=== PATIENT | male | born 1935 | race Caucasian/White ===

== ENCOUNTER 2024-01-01 23:21 | Inpatient (IN) | payer OTHER, SELFPAY ==
[2024-01-01 18:53] VITALS: BP 138/68
--- NOTE | 2024-01-01 19:41 | ED.GENMED ---
History of Present Illness
General
Chief Complaint: Weakness
Time Seen by Provider: 01/01/24 19:24
History of Present Illness
History of Present Illness:
88-year-old male history of previous CABG presenting with generalized fatigue for the past few months. Patient states that he followed up with his primary care doctor who ordered labs that were abnormal, so he was sent to the emergency department
for further evaluation. Patient states he does not know what the abnormal blood work showed. Patient reports episodes of 'extreme chills' that last for hours at a time for the past 2 months, most recently 1 week ago. Patient otherwise denies
fever, chest pain, shortness of breath, cough, vomiting, abdominal pain, or urinary symptoms. Patient denies black or bloody stools. Patient is not on a blood thinner.
Phy Exam
Physical Exam
Physical Exam:
General: Alert, no acute distress
Head: NCAT
Eyes: clear conjunctiva
Neck: supple
Cardiac: regular rate and rhythm, no murmur
Lungs: clear to auscultation bilaterally. No wheezes, rales, or rhonchi. Speaking full unlabored sentences. No respiratory distress.
Abdomen: soft, nondistended nontender. No rebound or guarding.
MSK: no lower extremity edema bilaterally. No deformity
Skin: warm, dry
Neuro: Alert and oriented x3. no focal deficits
Course
Orders/Labs/Results
Orders:
Orders
01/01/24 19:07
Electrocardiogram (*1) Urgent
Reason for Study: Fatigue / Weakness
01/01/24 19:08
EKG- Treatment ONCE
01/01/24 20:21
CMP [Comprehensive Metabolic Panel] Urgent
Complete Blood Count/With Diff Urgent
TSH Reflex To Free T4 Urgent
Troponin I Urgent
01/01/24 21:01
Urinalysis Reflex To Culture Urgent
Date Specimen was Collected: 01/01/24
Time Specimen was Collected: 19:07
Urine Microscopic Reflex Cult Urgent
Urine Culture Urgent
RAHUL Source: U
Specimen Description:
Date Specimen was Collected: 01/01/24
Time Specimen was Collected: 19:07
01/01/24 21:14
US Abdomen Complete/Upper Urgent
Comment:
Reason For Exam: elevated lfts
01/01/24 21:16
Add On- LAB Urgent
Tests Added?: tsh w/ reflex t4
01/01/24 21:25
EKG- Treatment ONCE
01/01/24 22:26
Lipase Urgent
CefTRIAXone [Rocephin] 1,000 mg IV NOW STA
01/01/24 23:17
Troponin I Urgent
01/01/24 23:20
Electrocardiogram (*1) Urgent
Reason for Study: CAD
01/01/24 23:21
Admit/Transfer Patient As Directed
Co-Sign Provider:
Level of Care: Inpatient admission
Assign to:: Telemetry
Physician / Group: hospitalist
Diagnosis: choledocholithiasis
Reason for Telemetry: Chest Pain syndromes
Date to Stop Telemetry: 01/03/24
Time to Stop Telemetry: 11:00
Reason for Hospitalization: choledocholithiasis
Expected length of stay greater than two midnights?: Yes
ELOS- Estimated Length of Stay in days: 2
I certify the patient meets the requirements for IP care: Yes
PRN Pain Medication Management As Directed
May give lesser potent ordered pain med per pt: Yes
preference::
Protocol:: Medication orders for pain may be administered in a
manner that supports deferring to patient preference
when the pt is:
- Requesting an ordered lesser potent pain medication.
Least to most potent pain medications are defined
as: acetaminophen < NSAID < tramadol < opioids
(morphine, oxycodone, hydromorphone).
- Requesting a lesser dose of the same medication IF
ORDERED.
- Requesting a less intrusive route of administration
if both routes are prescribed by the provider (PO <
IV).
01/01/24 23:22
Code Status As Directed
Resuscitation Status: Full Code
01/03/24 11:00
DC Protocol for Telemetry ONCE
Abnormal Lab Results
01/01/24 01/01/24
20:21 21:01
RBC 4.01 L 10^6/uL
(4.70-6.10)
Hgb 12.8 L g/dL
(13.0-18.0)
MCV 97.3 H fL
(80.0-94.0)
MCH 31.9 H pg
(27.0-31.0)
MCHC 32.8 L g/dL
(33.0-37.0)
RDW 15.9 H %
(11.5-14.5)
MPV 12.2 H fL
(7.4-10.4)
Abs Immat Gran (auto) 0.1 H 10^3/uL
(0-0.05)
Absolute Lymphs (auto) 1.1 L 10^3/uL
(1.2-3.4)
Absolute Monos (auto) 1.2 H 10^3/uL
(0.1-0.6)
Immature Gran % 1.5 H %
(0-0.5)
Lymphocytes % 12.6 L %
(20.5-51.1)
Monocytes % 13.8 H %
(1.7-9.3)
Glucose 111 H mg/dl
(70-99)
ALT 83 H U/L
(0-50)
Alkaline Phosphatase 364 H U/L
(38-126)
Troponin I 0.076 H* ng/ml
Urine Ketones 1+ A
(Negative)
Leukocyte Esterase Rfl Trace A
(Negative)
Urine Bacteria (Reflex) Many A
(Negative)
01/01/24 20:21
01/01/24 20:21
Vital Signs
Initial and Last Documented VS:
Initial Vital Signs
Temp Pulse Resp BP Pulse Ox
97.6 F 80 16 138/68 98
01/01/24 18:53 01/01/24 18:53 01/01/24 18:53 01/01/24 18:53 01/01/24 18:53
Last Documented Vital Signs
Temp Pulse Resp BP Pulse Ox
97.6 F 72 18 131/67 99
01/01/24 18:53 01/01/24 21:15 01/01/24 21:15 01/01/24 21:15 01/01/24 21:15
MDM/Problems Addressed
Differential Diagnosis Includes:
Anemia, electrolyte abnormality, STEVEN, NSTEMI, UTI
MDM/Problems Addressed:
Results reviewed. Patient slightly anemic with hemoglobin 12.8, unknown baseline. Electrolytes within normal limits. Elevated ALT 83, alk phos 364. Ordered abdominal ultrasound. Troponin 0.076. Discussed results with patient at bedside. Pt
states he has seen Dr. Reardon, cardiology, in the past and is told he 'needs a new aortic valve'. Pt continues to deny any chest pain, shortness of breath, or abdominal pain. Abdomen soft nontender.
Discussed with cardiology who agrees to repeat troponin, can be discharged with outpatient follow up if troponin flat given no chest pain, no shortness of breath, nonischemic EKG. Ordered repeat troponin
UA concerning for possible UTI. Ordered ceftriaxone
US abdomen shows The gallbladder is distended with biliary sludge. There are no additional findings suggestive of acute cholecystitis. There is intrahepatic and extrahepatic biliary ductal dilation with the common bile duct measuring 1.3 cm. There
is a probable stone within the common bile duct. Consider MRCP or ERCP for further evaluation. Mild hepatic steatosis. Bilateral pleural effusions. As read by radiology. Will admit for GI consult
Discussed results again with patient. Discussed with hospitalist for admission
*EKG
Interpreted by ED Provider?: Yes (EKG shows sinus rhythm at 73 bpm with [place] 160 QTc 491, left bundle branch block, PVCs)
*Critical Care Note
Total Time (30-74mins, 75-104mins- exclusive of procedures): Not Applicable
ED Attending Note
-
Portions of this chart may have been created with voice recognition software.� Occasional wrong word or��sound alike� substitutions may have occurred due to the inherent limitations of voice recognition software.
Discharge Plan
Departure
Patient Disposition: Admit
Date of Disposition: 01/01/24
Time of Disposition: 22:50
Presentation/result/management discussed w/ accepting MD/DO: Hospitalist
Discharge Problem:
Choledocholithiasis, Elevated troponin, Acute UTI
Prescriptions:
No Action
cyanocobalamin (vitamin B-12) 1,000 mcg Tablet
1,000 mcg PO DAILY
aspirin 81 mg Tablet,Delayed Release (Dr/Ec)
81 mg PO DAILY
tamsulosin 0.4 mg capsule
0.4 mg PO HS
calcium carbonate 200 mg calcium (500 mg) Tablet,Chewable
200 mg PO BID
cholecalciferol (vitamin D3) 25 mcg (1,000 unit) Tablet
25 mcg PO DAILY
Referrals:
Felicity Sandhu, [Family Provider] -
Interventions
Interventions:
*Risk Screen - Suicide Last Done: 01/01/24 18:53
*General Assessment Last Done: 01/01/24 18:53
*Neglect/Abuse Screening Last Done: 01/01/24 18:53
ED- Fall Risk Assessment Last Done: 01/01/24 22:38
ED- Cardiac Assessment Last Done: 01/01/24 22:38
ED- Neurological Assessment Last Done: 01/01/24 22:38
ED- Pulmonary Assessment Last Done: 01/01/24 22:38
Discharge Date and Time
Print Language: AUSTRALIAN
--- NOTE | 2024-01-01 19:45 | EDRN ---
Dr. Yang in room w/ pt.
[2024-01-01 20:34] LABS: % Basophils 0.1 % (0-2); % Eosinophils 1.3 % (0-6); % Immature Granulocytes 1.5 % (0-0.5); % Lymphocytes 12.6 % (20.5-51.1); % Monocytes 13.8 % (1.7-9.3); % Neutrophils 70.7 % (42.2-75.2); Absolute Eosinophils 0.1 10^3/uL (0-0.7); Absolute Immature Granulocytes 0.1 10^3/uL (0-0.05); Absolute Lymphocytes 1.1 10^3/uL (1.2-3.4); Absolute Monocytes 1.2 10^3/uL (0.1-0.6); Hemoglobin 12.8 g/dL (13.0-18.0); Mean Corp Hgb Conc. 32.8 g/dL (33.0-37.0); Mean Corpuscular Hgb 31.9 pg (27.0-31.0); Mean Corpuscular Volume 97.3 fL (80.0-94.0); Mean Platelet Volume 12.2 fL (7.4-10.4); Nucleated Red Blood Cells % 0 % (-); Platelet Count 157 10^3/uL (130-400); Red Blood Cell Count 4.01 10^6/uL (4.70-6.10); Red Cell Dist. Width 15.9 % (11.5-14.5); White Blood Cell Count 8.5 10^3/uL (4.8-10.8)
[2024-01-01 20:51] LABS: ALT (SGPT) 83 U/L (0-50); AST (SGOT) 58 U/L (17-59); Albumin 3.8 g/dl (3.5-5.0); Alkaline Phosphatase 364 U/L (38-126); Blood Urea Nitrogen 18 mg/dl (9-20); Calcium 9.3 mg/dl (8.4-10.2); Carbon Dioxide 27 mmol/L (22-30); Chloride 102 mmol/L (98-107); Glucose 111 mg/dl (70-99); Potassium 3.9 mmol/L (3.5-5.1); Sodium 140 mmol/L (135-145); Total Bilirubin 1.1 mg/dl (0.2-1.3); Total Protein 6.3 g/dl (6.3-8.2); eGFR > 60.00
[2024-01-01 20:55] LABS: Troponin I 0.076 ng/ml
[2024-01-01 21:09] LABS: Urine Albumin Trace (Neg - Trace); Urine Bilirubin Negative (Negative); Urine Character Clear (Clear); Urine Color Amber; Urine Glucose Negative (Negative); Urine Ketone 1+ (Negative); Urine Leukocyte Trace (Negative); Urine Nitrite Negative (Negative); Urine Occult Blood Negative (Negative); Urine Urobilinogen 1+ (Neg - 1+)
[2024-01-01 21:15] VITALS: BP 131/67
[2024-01-01 21:18] LABS: Urine Mucus Many; Urine Squamous Cell 0-2 /LPF (Few)
[2024-01-01 21:19] LABS: Urine Bacteria Many (Negative); Urine Red Blood Cell 0-2 /HPF (0-2); Urine White Cell 0-2 /HPF (0-5)
[2024-01-01 22:05] LABS: TSH Reflex To Free T4 3.17 uIU/ml (0.47-4.68)
[2024-01-01] MEDS: ROCEPHIN 1000 MG IV (22:32)
--- NOTE | 2024-01-01 23:06 | HPS.HSE ---
Family Physician
-
Family Physician: Felicity Sandhu DO
Chief Complaint
-
Abnormal laboratories and weakness
History of Present Illness
This is an 88-year-old with past medical history of CAD status post CABG, prior prostate cancer status post radiation and currently with BPH, depression, prior hypertension presenting to the emergency department from his assisted living after blood
test shows some abnormalities presumably in liver enzymes that it is as it is not available to us at this time.
Patient reports several week history of patient reports several week history of intermittent rigors. He reports 4 such episodes. He also reports generalized weakness. Denies having any yuri fevers. Denies dyspnea on exertion or shortness of
breath. Denies having chest pain. Denies palpitations lightheadedness or dizziness. Patient denies having any abdominal pain. Denies diarrhea. Denies nausea or vomiting. He denies any urinary symptoms including dysuria hematuria flank pain or
worsening frequency or nocturia.
Patient was seen by His physician at the assisted living facility and had some blood work drawn. Results came back today and patient was referred to the emergency department.
In the emergency department in the emergency department for weakness, he was afebrile, blood pressure was 130/60 with a pulse of 72. EKG showed sinus rhythm at 73 with a left bundle branch block and occasional PVCs. No prior ECGs to compare.
Initial troponin was 0.076. Other labs showed ALT of 83 alk phos of 324, lipase pending. Electrolytes BUN/creatinine were within normal limits. CBC is within normal limits. ABD U/S shows gallbladder is distended with biliary sludge. There are no
additional findings suggestive of acute cholecystitis. There is intrahepatic and extrahepatic biliary ductal dilation with the common bile duct measuring 1.3 cm. There is a probable stone within the common bile duct. Consider MRCP or ERCP for
further evaluation. Mild hepatic steatosis. Bilateral pleural effusions.
Medical History
Past Medical History
Past Medical History: Reports CAD, Cancer (prostate ca s/p XRT) and HTN
Additional Past Medical History:
LUTS
Past Surgical History: Reports Cardiac (3 vessel CABG) and Orthopedic (Back surgery, Left HIP arthroplasty)
Social History
Tobacco: Former Smoker
Alcohol: Occasional
Drug: None
Personal:
Living: Assisted Living
Employment: Retired
Family History
Family History: Not pertinent
Allergies / Home Medications
Allergies reflects when Allergies were last updated in [facility].
Home Medications with original date entered in [facility]
Allergy/Medication List:
Allergies
Allergy/AdvReac Type Severity Reaction Status Date / Time
NSAIDS (Non-Steroidal Allergy Unknown Unknown Verified 01/01/24 18:52
Anti-Inflamma
Home Medications
aspirin 81 mg tablet,delayed release 81 mg PO DAILY 01/01/24
calcium carbonate 200 mg PO BID 01/01/24
cholecalciferol (vitamin D3) 25 mcg (1,000 unit) tablet 25 mcg PO DAILY 01/01/24
cyanocobalamin (vitamin B-12) 1,000 mcg tablet 1,000 mcg PO DAILY 01/01/24
tamsulosin 0.4 mg capsule 0.4 mg PO HS 01/01/24
Review of Systems
-
History Source: Patient
Constitutional: Reports Fatigue and Chills
EENT: Reports No Symptoms
Respiratory: Reports No Symptoms
Cardiac: Reports No Symptoms
Abdomen/GI: Reports No Symptoms
: Reports No Symptoms
Musculoskeletal: Reports No Symptoms
Skin: Reports No Symptoms
Neurological: Reports No Symptoms
Endocrine: Reports No Symptoms
Hematologic/Lymphatic: Reports No Symptoms
Psych: Reports No Symptoms
Physical Exam
Vital Signs
Vital Signs
Temp Pulse Resp BP Pulse Ox
97.6 F 72 18 131/67 99
01/01/24 18:53 01/01/24 21:15 01/01/24 21:15 01/01/24 21:15 01/01/24 21:15
Physical Exam
General: Well Developed, Well Nourished, Comfortable and Conversant
HEENT: NormoCephalic, Anicteric, Moist mucous membranes and Atraumatic
Respiratory: Clear
Cardiac: S1/S2 and Regular Rhythm
Breast: Deferred by me
GI: Soft, Non Tender, Non Distended and Normal Bowel Sounds
Rectal: Deferred by Provider
Genito-urinary: Clear Urine and No costovertebral tender
Musculoskeletal: No Clubbing, No Cyanosis and No Edema
Skin: Warm
Neuro: AO x 3
Hematologic/Lymphatic: No Lymphadenopathy
Psych: Calm
Laboratory Results
-
01/01/24 20:21
01/01/24 20:21
Laboratory Results
Total Bilirubin 1.1 mg/dl (0.2-1.3) 01/01/24 20:21
AST 58 U/L (17-59) 01/01/24 20:21
ALT 83 U/L (0-50) H 01/01/24 20:21
Alkaline Phosphatase 364 U/L (38-126) H 01/01/24 20:21
Troponin I 0.076 ng/ml H* 01/01/24 20:21
Data Reviewed
-
Ultrasound: Report Reviewed by me
Medical Tests (Nuc Med, Echo, EKG etc): Image Personally Visualized and interpreted
Lab Data: Labs Reviewed by me
Old Records: Reviewed
Impression/Plan
-
IMPRESSION:
Patient with abnormal lab work from assisted living found to have elevated alkphos and AST and a probable CBD stone with stones and distention of GB. Reports intermittent rigors over several months (4 episodes). No abdominal pain, n/v. No
tenderness to palpation of the RUQ. Unlikely acute alison per exam and U/S. Equivocal u/a and elevated troponin without chest pain. Reports chronic fatigue/weakness. CBC WNL.
PLAN:
1. Choledocholithiasis -
- admit to telemetry given trop elevation and CAD history
- no pain at this time, clear liquid diet
- MRCP in am
- GI consult
- given numerous GB stones, unlikely a surgical candidate given age, will get surgery consult in am as well.
- no indication for specific abx for acute alison at this time
2. Troponin elevation - no chest pain, LBBB but no prior ECGs. h/o CAD s/p CABG
- tele
- asa 81 daily
- trend troponins
- cardiology consult
- echo and bnp in am
- tsh
3. UTI - no urinary symptoms but bacteruria on u/a
- urine cultures
- repeat u/a
- oral cephalexin for now
DVT PPX - lovenox sq
Code Status - Full Code
[2024-01-02] VITALS (7 sets, daily range): BP systolic 117–147; BP diastolic 67–79; BMI 18.5
--- NOTE | 2024-01-02 02:35 | PTCARENOTE ---
00:55 pt rec;vd from ER , pt aaox3, ambulated from stretcher to bed. Pt is able to make needs known, pain on palpation to RUQ, + BM yesterday. Lungs diminished with fine crackles at bases, skin intact with red/non-blanchable coccyx area, dry heels
and BUE and BLLE scattered bruising. Pt oriented to unit, declines anything for pain.
[2024-01-02 06:25] LABS: ALT (SGPT) 75 U/L (0-50); AST (SGOT) 42 U/L (17-59); Albumin 3.4 g/dl (3.5-5.0); Alkaline Phosphatase 315 U/L (38-126); Blood Urea Nitrogen 16 mg/dl (9-20); Carbon Dioxide 23 mmol/L (22-30); Chloride 106 mmol/L (98-107); Direct Bilirubin 0.2 mg/dl (0.0-0.4); Estimated Creatinine Clearance 73 ml/min; Glucose 90 mg/dl (70-99); HDL Cholesterol 33 mg/dl; LDL Cholesterol, Calculated 99 mg/dl; Lipase 191 U/L (23-300); Magnesium 1.8 mg/dl (1.6-2.3); Potassium 3.8 mmol/L (3.5-5.1); Sodium 140 mmol/L (135-145); Total Bilirubin 0.6 mg/dl (0.2-1.3); Total Cholesterol 154 mg/dl (50-199); Total Protein 5.8 g/dl (6.3-8.2); Triglyceride 113 mg/dl (10-149); Very Low Density Lipoprotein 22 mg/dl (0-30); eGFR > 60.00
[2024-01-02 06:32] LABS: Troponin I 0.088 ng/ml
[2024-01-02] MEDS: KEFLEX 500 MG PO (09:05)
[2024-01-02] MEDS: ASPIR LOW (ENTERIC COATED) 81 MG PO (09:05)
--- NOTE | 2024-01-02 09:16 | W.PN.HOSP.TC ---
Today's Communication/Plan
-
Clear liquid diet. IV antibiotics. MRCP
Assessment / Plan
Assessment / Plan
Physical exam:
General: Well Developed, Well Nourished and No Apparent Distress
HEENT: Normocephalic, Atraumatic and Moist Mucous Membranes
Respiratory: Clear to Auscultation; Negative Wheezes, Rales or Rhonchi
Cardiac: Regular Rhythm and S1/S2, systolic ejection murmur.
GI: Soft, Nontender and Nondistended. Surgical incisions from prior surgery noticed.
Musculoskeletal: Splint in his left wrist. No Clubbing, No Cyanosis and No Edema
Neuro: Awake, Alert and Oriented
Psych: Calm
A/P:
High suspicion for choledocholithiasis (no evidence of acute cholecystitis):
Continue clear liquid diet
Start IV antibiotics, IV Rocephin and Flagyl
Follow-up blood cultures
Plan for MRCP
Trend LFTs
Appreciate GI and surgery consult
Elevated troponin:
Suspect elevated troponin due to non-ischemic myocardial injury
Continue to trend cardiac enzymes
Cardiology consulted
CAD:
Prior history of CABG
Does not appear to be on any medications for anti-ischemic regimen--> defer to cardiology for medication he should be on.
Continue antiplatelets, aspirin
Moderate aortic stenosis:
Continue to monitor with serial echocardiogram
Abnormal UA, likely asymptomatic bacteriuria:
Urine bacteria but no pyuria or urinary symptoms
BPH:
Continue Flomax
DVT prophylaxis:
Lovenox SQ
CODE STATUS:
Full code
Anticipated Discharge: > 48 hours
Subjective/Interval History
-
Date of Service: January 02, 2024
Patient denies abdominal pain nausea vomiting. He did have chills prior to coming in.
Objective Data
-
Labs:
Laboratory Results
01/02/24
05:28
Sodium 140
Potassium 3.8
Chloride 106
Carbon Dioxide 23
BUN 16
Creatinine 0.6 L
Glucose 90
Calcium 9.0
Total Bilirubin 0.6
AST 42
ALT 75 H
Alkaline Phosphatase 315 H
Vital Signs:
Vital Signs
Temp Pulse Resp BP Pulse Ox
98.2 F 65 16 135/74 97
01/02/24 07:53 01/02/24 07:53 01/02/24 07:53 01/02/24 07:53 01/02/24 07:53
--- NOTE | 2024-01-02 09:58 | CON.GS ---
Medical History
-
Chief Complaint: rigors
History of Present Illness:
Mr Mullins is an 88 yo male with h/o CAD with CABG, prostate Ca with XRT, and diverticulitis with prior colostomy and subsequent reversal who presents with increasing fatigue and intermittent rigors over the past few months. Outpatient labs were
done and reportedly LFTs were abnormal and he was told to present to the ED by the physician at his [facility] for evaluation. He has no complaints of nausea, vomiting or abdominal pain. No tenderness or distention on abdominal exam.
Past Medical History
Past Medical History: CAD, Cancer (Prostate ca s/p XRT), Diverticulitis, HTN and Other (Nephrolithiasis)
Past Surgical History: Bowel Resection (Colostomy for complicated diverticulitis with partial colectomy with subsequent reversal remotely), Cardiac (CABG) and Orthopedic (back surgery, left hip arthroplasty )
Social History
Tobacco: Former Smoker
Alcohol: Occasional
Personal:
Living: Assisted Living
Family History
Family History: Reviewed & Not Pertinent
Allergies / Home Medications
Allergy/AdvReac Type Severity Reaction Status Date / Time
NSAIDS (Non-Steroidal Allergy Unknown Unknown Verified 01/01/24 18:52
Anti-Inflamma
�Medication �Instructions �Recorded �Confirmed �Type
aspirin 81 mg tablet,delayed 81 mg PO DAILY 01/01/24 01/01/24 History
release
calcium carbonate 200 mg PO BID 01/01/24 01/01/24 History
cholecalciferol (vitamin D3) 25 25 mcg PO DAILY 01/01/24 01/01/24 History
mcg (1,000 unit) tablet
cyanocobalamin (vitamin B-12) 1,000 mcg PO DAILY 01/01/24 01/01/24 History
1,000 mcg tablet
tamsulosin 0.4 mg capsule 0.4 mg PO HS 01/01/24 01/01/24 History
Review of Systems
-
History Source: Patient
All other systems: Negative unless noted
A 10 point review of systems was completed, and was negative except as per HPI.
Physical Exam
Vital Signs
Temp Pulse Resp BP Pulse Ox
98.2 F 65 16 135/74 97
01/02/24 07:53 01/02/24 07:53 01/02/24 07:53 01/02/24 07:53 01/02/24 07:53
01/01/24 01/02/24 01/03/24
06:59 06:59 06:59
Actual Weight 58.513 kg
Body Mass Index (BMI) 18.5
Lab Results
01/01/24 20:21
01/02/24 05:28
WBC 8.5 10^3/uL (4.8-10.8) 01/01/24 20:21
Hgb 12.8 g/dL (13.0-18.0) L 01/01/24 20:21
Hct 39.0 % (39.0-52.0) 01/01/24 20:21
Plt Count 157 10^3/uL (130-400) 01/01/24 20:21
Abs Immat Gran (auto) 0.1 10^3/uL (0-0.05) H 01/01/24 20:21
Neutrophils % 70.7 % (42.2-75.2) 01/01/24 20:21
Physical Exam
General: No Apparent Distress
HEENT: Moist Mucous Membranes
Respiratory: Non Labored Respirations
GI: Soft, Non Tender and Non Distended
Skin: Warm and Dry
Neuro: Awake, Alert and AO x 3
Psych: Calm
Data Reviewed
-
Ultrasound: Image Personally Visualized and interpreted, Report Reviewed by me, Discussed with Physician and Discussed with Patient
Labs: Labs Reviewed by me, Discussed with Physician and Discussed with Patient
Old Records: Reviewed
Assessment / Plan
-
88 yo male h/o CAD with CABG, prostate Ca with XRT, and diverticulitis with prior colostomy and subsequent reversal who presents with increasing fatigue and intermittent rigors over the past few months. Outpatient labs were done and reportedly LFTs
were abnormal and he was told to present to the ED by the physician at his [facility] for evaluation. He has no complaints of nausea, vomiting or abdominal pain. No tenderness or distention on abdominal exam.
US imaging with distended gallbladder and sludge but no signs of inflammation or cholecystitis with probably stone in the CBD
--MRCP pending
--GI evaluation pending
--Will likely need eventual cholecystectomy, timing TBD
--- NOTE | 2024-01-02 10:10 | CON.CAR ---
Addendum entered and electronically signed by Jayce Medley MD 01/02/24 19:22:
88 yo male with PMH of CAD/CABG, mild cardiomyopathy, EF 45%, moderate , LBBB is admitted with rigors and abnormal LFT. Being evaluated for choledocholithiasis. May need ERCP Thursday. We are consulted for pre-operative evaluation. He has no
cardiac complaints. No CP/SOB with flight of stairs. Exam with RRR, II/ systolic murmur at RUSB, no edema. Tele: SR, and 17 beat run NSVT. EKG: NSR,LBBB. TnI peak 0.088.
NSVT. Asymptomatic. Add Toprol XL. Repeat echo this admission.
CAD. Stable. Elevated troponin is likely acute non-ischemic myocardial injury. Continue ASA 81mg.
He is stable from cardiac perspective for ERCP.
Addendum entered and electronically signed by Geeta Rosado NP 01/02/24 11:09:
CM:
- echo 07/15/23 EF 45, global strain -8.7%, mod , PG 31mmhg, MG 19mmg COLE 1
-denies HF symptoms
-await OP records for [place]
Original Note:
Consultation
Consultation Request
Date/Time Consultation Requested: 01/02/2024 0700
Date/Time Consultation Performed: 01/02/2024 0945
Requesting Provider: DR Lemos
Performing Provider: Dr. Medley
Reason for Consultation: abnormal troponin
Medical History
-
Chief Complaint: fatigue, rigors, abnormal labs
History of Present Illness:
Patient is an 88-year-old gentleman with history of CAD, prior CABG x 3, moderate IS LVH, left bundle branch block who was previously seen by Dr. Ortiz on October 13, 2023 as a new patient. He now presents to [facility] with increasing
fatigue and intermittent rigors over the last several months. Outpatient labs were performed and LFTs were abnormal and given his symptoms he was sent to the emergency room for further evaluation. During that evaluation there was concern for
distended gallbladder and sludge but no cholecystitis. There is concern for possible stone in the CBD. He has noted to have a mildly abnormal troponin and cardiology is consulted. He currently denies chest pain or shortness of breath. He does
occasionally note periods of lightheadedness.
Past Medical History
Past Medical History: Other (CAD: Moderate , hypertension, prostate cancer with prior radiation, BPH, depression, hypertension,)
Past Surgical History: Other (Prior left hip replacement, coronary artery bypass grafting)
Social History
Tobacco: Former Smoker
Alcohol: None
Personal:
Living: With Family
Employment: Retired
Family History
Family History: Reviewed & Not Pertinent
Allergies / Home Medications
Allergy/AdvReac Type Severity Reaction Status Date / Time
NSAIDS (Non-Steroidal Allergy Unknown Unknown Verified 01/01/24 18:52
Anti-Inflamma
�Medication �Instructions �Recorded �Confirmed �Type
aspirin 81 mg tablet,delayed 81 mg PO DAILY 01/01/24 01/01/24 History
release
calcium carbonate 200 mg PO BID 01/01/24 01/01/24 History
cholecalciferol (vitamin D3) 25 25 mcg PO DAILY 01/01/24 01/01/24 History
mcg (1,000 unit) tablet
cyanocobalamin (vitamin B-12) 1,000 mcg PO DAILY 01/01/24 01/01/24 History
1,000 mcg tablet
tamsulosin 0.4 mg capsule 0.4 mg PO HS 01/01/24 01/01/24 History
Review of Systems
-
History Source: Patient
All other systems: Negative unless noted
Constitutional: Chills
Respiratory: No Symptoms
Cardiac: No Symptoms (Occasional lightheadedness if he gets up too fast) and Other
: No Symptoms
Skin: No Symptoms
Physical Exam
Vital Signs
Temp Pulse Resp BP Pulse Ox
98.2 F 65 16 135/74 97
01/02/24 07:53 01/02/24 07:53 01/02/24 07:53 01/02/24 07:53 01/02/24 07:53
Lab Results
01/01/24 20:21
01/02/24 05:28
Troponin I 0.088 ng/ml H* 01/02/24 05:28
Physical Exam
General: Well Developed and Well Nourished
HEENT: Normocephalic
Respiratory: Clear
Cardiac: S1/S2, Irregular Rhythm and Murmur (03/17 SME)
Breast: N/A
GI: Soft and Non Distended
Musculoskeletal: No Edema
Skin: Warm and Dry
Neuro: AO x 3
Impression / Plan
-
Abnormal labs/ distended gallbladder:
- MRCP planned
-surgery /GI following
Abnormal troponin:
-non MD elevated troponin
-EKG with chronic LBBB
-no anginal symptoms
-monitor trend,
CAD:
-prior CAB x3
-con't medical therapy
Moderate :
-Dr. Reardon was waiting on OP records from [facility].
-It was not clear if CM was established or new.
- He then was considering stress vs dobutamine stress echo to assess for pseudo stenosis vs true stenosis.
PVC's
- noted on tele
-tele appears to be NSR with frequent PVC's, not AF
Data Reviewed
-
EKG: Tracing Personally Visualized and interpreted ( NSR 73 bpm, PVC, LBBB)
Ultrasound: Report Reviewed by me ( Abd US 01/01/24 There is intrahepatic and extrahepatic biliary ductal dilation with the common bile duct measuring 1.3 cm. There is a probable stone within the common bile duct. Consider MRCP or ERCP for further
evaluation.)
Medical Tests (Nuc Med, Echo etc): Other (Echocardiogram 07/15/2023 at [facility] EF 45 severe hypokinesis involving the proximal and midportion/inferolateral wall, global longitudinal strain-8.7%,LVH strain spares apex. pattern can be seen in the
presence of amyloidosis, mild LVH grade 2 pseudo normal diastolic dysfunction, moderate )
Labs: Discussed with Physician and Discussed with Patient
Old Records: Reviewed (OP cardiology notes 10/13/23 )
--- NOTE | 2024-01-02 11:07 | CON.CAR ---
Medical History
Allergies / Home Medications
Allergy/AdvReac Type Severity Reaction Status Date / Time
NSAIDS (Non-Steroidal Allergy Unknown Unknown Verified 01/01/24 18:52
Anti-Inflamma
�Medication �Instructions �Recorded �Confirmed �Type
aspirin 81 mg tablet,delayed 81 mg PO DAILY 01/01/24 01/01/24 History
release
calcium carbonate 200 mg PO BID 01/01/24 01/01/24 History
cholecalciferol (vitamin D3) 25 25 mcg PO DAILY 01/01/24 01/01/24 History
mcg (1,000 unit) tablet
cyanocobalamin (vitamin B-12) 1,000 mcg PO DAILY 01/01/24 01/01/24 History
1,000 mcg tablet
tamsulosin 0.4 mg capsule 0.4 mg PO HS 01/01/24 01/01/24 History
Physical Exam
Vital Signs
Temp Pulse Resp BP Pulse Ox
98.2 F 65 16 135/74 97
01/02/24 07:53 01/02/24 07:53 01/02/24 07:53 01/02/24 07:53 01/02/24 07:53
Lab Results
01/01/24 20:21
01/02/24 05:28
Troponin I 0.088 ng/ml H* 01/02/24 05:28
Impression / Plan
-
Abnormal labs/ distended gallbladder:
- MRCP planned
-surgery /GI following
Abnormal troponin:
-non [place] elevated troponin
-EKG with chronic LBBB
-no anginal symptoms
-monitor trend,
CAD:
-prior CAB x3
-con't medical therapy
Moderate :
-Dr. Reardon was waiting on OP records from [facility].
-It was not clear if CM was established or new.
- He then was considering stress vs dobutamine stress echo to assess for pseudo stenosis vs true stenosis.
PVC's
- noted on tele
-tele appears to be NSR with frequent PVC's, not AF
--- NOTE | 2024-01-02 11:12 | CM ---
Patient seen at bedside. Patient stated that he has no DME at home and is currently not driving. Patient is at the personal care facility taking care of their dog, a beagle. Patient PCP is Dr. Sandhu and he uses the [facility] for
pharmacy needs. Patient plan is to return to personal care, previously has not had any VN or PT/OT. CM will request assessment to confirm ability to return to personal care. CM will continue to follow for discharge planning needs.
Plan; return to personal care pending acceptance by [facility]. request PT/OT to confirm ability to return at prior level
--- NOTE | 2024-01-02 14:39 | CON.GI ---
Consultation
-
Date/Time Consultation Requested: 01/01/2025 058
Date/Time Consultation Performed: 01/01/2025 1400
Requesting Provider: Dr Lemos
Performing Provider: Dr Castro
Reason for Consultation: abnormal abd US
Medical History
Chief Complaint / HPI
Chief Complaint: chills
History of Present Illness:
Dar is an 88yo M resident of assisted living facility with h/o CAD s/p CABG, prostate cancer s/p XRT and HTN who presents for abnormal liver enzymes and chills. He moved here from [place] about 6 months ago to be near daughter and son. He on and off
for several months noted fatigue and chills. He does have some abd bloating but no pain. Denies nausea/vomiting, odynophagia dysphagia reflux heartburn or wt loss. He reports mild constipation with BM every 2nd day instead of every 1 day. There
is no blood in stools. He's never had issues with his gallbladder in the past. He denies itching or jaundice. There is no CP or SOB.
Past Medical History
Past Medical History: CAD, HTN and Other (carpal tunnel syndrome, prostate cancer, BPH, depression)
Past Surgical History: Bowel Resection (at age 47 for diverticular disease), Cardiac (CABG) and Other (back and L hip surgery)
Social History
Tobacco: Former Smoker
Alcohol: None
Drug: None
Living: Assisted Living
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
Family History
Family History: Other (Denies any GI cancers)
Allergies / Home Medications
Allergy/AdvReac Type Severity Reaction Status Date / Time
NSAIDS (Non-Steroidal Allergy Unknown Unknown Verified 01/01/24 18:52
Anti-Inflamma
�Medication �Instructions �Recorded
aspirin 81 mg tablet,delayed 81 mg PO DAILY 01/01/24
release
calcium carbonate 200 mg PO BID 01/01/24
cholecalciferol (vitamin D3) 25 25 mcg PO DAILY 01/01/24
mcg (1,000 unit) tablet
cyanocobalamin (vitamin B-12) 1,000 mcg PO DAILY 01/01/24
1,000 mcg tablet
tamsulosin 0.4 mg capsule 0.4 mg PO HS 01/01/24
Review of Systems
-
All other systems: A 12 pt ROS was Negative except as stated above in HPI
Vital Signs
Temp Pulse Resp BP Pulse Ox
98.5 F 73 18 123/77 96
01/02/24 11:28 01/02/24 11:28 01/02/24 11:01/02/24 11:01/02/24 11:
Physical Exam
Exam
GEN: No acute distress, conversant, pleasant
HEENT: anicteric, extraocular movements intact, clear oropharynx without exudates
GI: soft, non-distended, not tender to palpation, normal active bowel sounds, no hepatosplenomegaly
EXT: warm, well perfused, 1+ edema bilaterally, diffuse arm bruising L hand in wrist splint
NEURO: AAOx3, non-focal
Results
WBC 8.5 10^3/uL (4.8-10.8) 01/01/24 20:21
Hgb 12.8 g/dL (13.0-18.0) L 01/01/24 20:21
Hct 39.0 % (39.0-52.0) 01/01/24 20:21
MCV 97.3 fL (80.0-94.0) H 01/01/24 20:21
Plt Count 157 10^3/uL (130-400) 01/01/24 20:21
Absolute Neuts (auto) 6.0 10^3/uL (1.4-6.5) 01/01/24 20:21
Sodium 140 mmol/L (135-145) 01/02/24 05:28
Potassium 3.8 mmol/L (3.5-5.1) 01/02/24 05:28
Chloride 106 mmol/L (98-107) 01/02/24 05:28
Carbon Dioxide 23 mmol/L (22-30) 01/02/24 05:28
BUN 16 mg/dl (9-20) 01/02/24 05:28
Creatinine 0.6 mg/dL (0.7-1.3) L 01/02/24 05:28
Calcium 9.0 mg/dl (8.4-10.2) 01/02/24 05:28
Total Bilirubin 0.6 mg/dl (0.2-1.3) 01/02/24 05:28
AST 42 U/L (17-59) 01/02/24 05:28
ALT 75 U/L (0-50) H 01/02/24 05:28
Alkaline Phosphatase 315 U/L (38-126) H 01/02/24 05:28
Lipase 191 U/L (23-300) 01/02/24 05:28
Diagnostic Image Results:
Abd US The gallbladder is distended with biliary sludge. There are no additional findings suggestive of acute cholecystitis.
There is intrahepatic and extrahepatic biliary ductal dilation with the common bile duct measuring 1.3 cm. There is a probable stone within the common bile duct. Consider MRCP or ERCP for further evaluation.
Mild hepatic steatosis.
Bilateral pleural effusions.
Prior GI Procedures:
Colonoscopy: >10yrs ago in [place]. Benign polyps.
Assessment / Plan
-
Dar is an 88yo M with h/o CAD s/p CABG, remote prostate ca and carpal tunnel who was admitted for chills and abd US suggestive of choledocholithiasis
Impression
- Chills and abnormal Abd US suggestive of choledocholithiasis
- +UA
- Elevated troponin
- H/o CAD
- CABG
- H/o prostate cancer
- HTN
- Carpal tunnel
Recommendations
- CLD
- Agree with MRI
- If + choledocholithiasis recommend ERCP on Thursday
- C/w abx
- Check BC
- Appreciate cardiology and surgical recs
Will follow with you
Data Reviewed
-
Radiology: Report Reviewed by me
Ultrasound: Report Reviewed by me
-
-
Thank you for consultation and allowing me to participate in the patient's care. Please call the construction skills teacher GI physician during the after hours with any questions or concerns.
--- NOTE | 2024-01-02 16:49 | PTCARENOTE ---
Patient had 16 beat run of VT. Patient was asymptomatic. Physician made aware.
[2024-01-02] MEDS: FLAGYL 500 MG 100 IV ×2 (17:13→23:05)
[2024-01-02] MEDS: STERILE WATER FOR INJECTION 10 ML IV (17:13)
[2024-01-02] MEDS: LOVENOX 40 MG SC (17:13)
[2024-01-02] MEDS: ROCEPHIN 1000 MG IV (17:13)
[2024-01-02] MEDS: FLOMAX 0.4 MG PO (21:15)
[2024-01-02] MEDS: TOPROL XL 25 MG PO (21:15)
[2024-01-03 03:00] VITALS: BP 122/65
[2024-01-03 04:53] LABS: Hematocrit 35.7 % (39.0-52.0); Hemoglobin 12.2 g/dL (13.0-18.0); Mean Corp Hgb Conc. 34.2 g/dL (33.0-37.0); Mean Corpuscular Hgb 32.8 pg (27.0-31.0); Mean Platelet Volume 12.8 fL (7.4-10.4); Platelet Count 148 10^3/uL (130-400); Red Blood Cell Count 3.72 10^6/uL (4.70-6.10); Red Cell Dist. Width 15.7 % (11.5-14.5); White Blood Cell Count 6.3 10^3/uL (4.8-10.8)
[2024-01-03 04:59] LABS: INR 1.16; PT 15.1 Sec (11.4-14.6)
[2024-01-03 05:16] LABS: ALT (SGPT) 112 U/L (0-50); AST (SGOT) 105 U/L (17-59); Albumin 3.4 g/dl (3.5-5.0); Alkaline Phosphatase 384 U/L (38-126); Blood Urea Nitrogen 10 mg/dl (9-20); Calcium 8.8 mg/dl (8.4-10.2); Carbon Dioxide 23 mmol/L (22-30); Chloride 106 mmol/L (98-107); Estimated Creatinine Clearance 73 ml/min; Glucose 80 mg/dl (70-99); Potassium 3.9 mmol/L (3.5-5.1); Sodium 139 mmol/L (135-145); Total Bilirubin 1.5 mg/dl (0.2-1.3); Total Protein 5.9 g/dl (6.3-8.2); eGFR > 60.00
[2024-01-03 06:51] VITALS: BMI 18.4
[2024-01-03 07:00] VITALS: BP 113/71
[2024-01-03] MEDS: FLAGYL 500 MG 100 IV ×3 (08:23→23:01)
[2024-01-03] MEDS: ASPIR LOW (ENTERIC COATED) 81 MG PO (08:23)
--- NOTE | 2024-01-03 08:45 | W.PN.HOSP.TC ---
Today's Communication/Plan
-
Antibiotics. Plan for ERCP tomorrow
Assessment / Plan
Assessment / Plan
Physical exam:
General: Well Developed, Well Nourished and No Apparent Distress
HEENT: Normocephalic, Atraumatic and Moist Mucous Membranes
Respiratory: Clear to Auscultation; Negative Wheezes, Rales or Rhonchi
Cardiac: Regular Rhythm and S1/S2, systolic ejection murmur.
GI: Soft, Nontender and Nondistended. Surgical incisions from prior surgery noticed.
Musculoskeletal: Splint in his left wrist. No Clubbing, No Cyanosis and No Edema
Neuro: Awake, Alert and Oriented
Psych: Calm
A/P:
Choledocholithiasis (no evidence of acute cholecystitis):
Continue clear liquid diet
Continue IV antibiotics, IV Rocephin and Flagyl
Follow-up blood cultures
MRCP confirms evidence of choledocholithiasis.
Trend LFTs
Appreciate GI and surgery consult
Plan for ERCP tomorrow morning 01/03
Elevated troponin:
Suspect elevated troponin due to non-ischemic myocardial injury
Continue to trend cardiac enzymes
Cardiology consulted
Discussed with cardiology today on 01/02
CAD:
Prior history of CABG
Does not appear to be on any medications for anti-ischemic regimen--> defer to cardiology for medication he should be on.
Continue antiplatelets, aspirin
Moderate aortic stenosis:
Continue to monitor with serial echocardiogram
Abnormal UA, likely asymptomatic bacteriuria regardless of urine cultures result:
Urine bacteria but no pyuria or urinary symptoms
BPH:
Continue Flomax
DVT prophylaxis:
Lovenox SQ
CODE STATUS:
Full code
Anticipated Discharge: 24 - 48 hours
Subjective/Interval History
-
Date of Service: January 03, 2024
Patient denies abdominal pain nausea or vomiting. Afebrile
Objective Data
-
Labs:
Laboratory Results
01/03/24
04:09
WBC 6.3
Hgb 12.2 L
Hct 35.7 L
Plt Count 148
PT 15.1 H
INR 1.16
Sodium 139
Potassium 3.9
Chloride 106
Carbon Dioxide 23
BUN 10
Creatinine 0.5 L
Glucose 80
Calcium 8.8
Total Bilirubin 1.5 H
AST 105 H
ALT 112 H
Alkaline Phosphatase 384 H
Vital Signs:
Vital Signs
Temp Pulse Resp BP Pulse Ox
97.4 F 73 16 113/71 97
01/03/24 07:00 01/03/24 07:00 01/03/24 07:00 01/03/24 07:00 01/03/24 07:00
I&O
01/02/24 01/03/24 01/04/24
06:59 06:59 06:59
Intake Total 1000 / 1000
Output Total 775 / 775
Balance 225 / 225
--- NOTE | 2024-01-03 10:08 | W.PN.GI.CBS2 ---
Today's Communication / Plan
-
MRI today
If + for choledocholithiasis anticipate ERCP tomorrow
Await cardiac risk stratification
Assessment / Plan
-
Dar is an 88yo M with h/o CAD s/p CABG, remote prostate ca and carpal tunnel who was admitted for chills and abd US suggestive of choledocholithiasis
Impression
- Chills and abnormal Abd US suggestive of choledocholithiasis
- +UA
- Elevated troponin
- H/o CAD
- CABG
- H/o prostate cancer
- HTN
- Carpal tunnel
Recommendations
- CLD
- Agree with MRI
- If + choledocholithiasis keep NPO at [facility] for possible ERCP on Thursday
- Await cardiac risk stratification
- C/w abx
- BC pending
Will follow with you
Subjective
Subjective
Date of Service: January 03, 2024
Tolerating CLD. Denies nausea/vomiting. MRI schedule for this afternoon
Objective
Data Reviewed
Laboratory Data:
Laboratory Results
01/03/24 04:09
01/03/24 04:09
Laboratory Results
PT 15.1 Sec (11.4-14.6) H 01/03/24 04:09
INR 1.16 01/03/24 04:09
Magnesium 1.8 mg/dl (1.6-2.3) 01/02/24 05:28
Total Bilirubin 1.5 mg/dl (0.2-1.3) H 01/03/24 04:09
AST 105 U/L (17-59) H 01/03/24 04:09
ALT 112 U/L (0-50) H 01/03/24 04:09
Alkaline Phosphatase 384 U/L (38-126) H 01/03/24 04:09
Lipase 191 U/L (23-300) 11/23/24 05:28
Vital Signs and I&O:
Vital Signs
Temp Pulse Resp BP Pulse Ox
97.4 F 73 16 113/71 97
01/03/24 07:00 01/03/24 07:00 01/03/24 07:00 01/03/24 07:00 01/03/24 08:00
I&O
01/02/24 01/03/24 01/04/24
06:59 06:59 06:59
Intake Total 1000 / 1000
Output Total 775 / 775
Balance 225 / 225
Physical Exam
Physical Exam
GEN: No acute distress, conversant, pleasant
HEENT: anicteric, extraocular movements intact, clear oropharynx without exudates
GI: soft, non-distended, not tender to palpation, normal active bowel sounds, no hepatosplenomegaly
EXT: warm, well perfused, no edema bilaterally
NEURO: AAOx3, non-focal
[2024-01-03 11:33] VITALS: BP 125/64
--- NOTE | 2024-01-03 14:37 | W.PN.CD ---
Today's Communication / Plan
-
stable to to proceed to ERCP from cardiac perspective
cont Toprol XL
Impression / Plan
-
88 yo male with PMH of CAD/CABG, mild cardiomyopathy, EF 45%, moderate , LBBB is admitted with rigors and abnormal LFT. Being evaluated for choledocholithiasis. May need ERCP Thursday. We are consulted for pre-operative evaluation.
Pre procedure evaluation for ERCP
-falls into intermediate risk category: stable to to proceed from cardiac perspective
-given EF 45% and moderate , caution to avoid fluid shifts and hypotension
Abnormal troponin:
-non-ischemic myocardial injury: peak 0.088
-EKG with chronic LBBB
-no anginal symptoms
Rhythm
-sinus with LBBB
-PVC's and 17 beat run NSVT
-Toprol XL started this admission: monitor for recurrence
-repeat echo this admission
ICM EF 45%
-no evidence of HF
-Toprol XL started this admission
Moderate
-will repeat echo this admission
CAD:
-prior CAB x3
-con't medical therapy: ASA 81mg
-not on statin as outpatient; not started yet due to abnl LFT
Physical Exam
Vital Signs/Labs
Vital Signs
Temp Pulse Resp BP Pulse Ox
97.7 F 67 16 125/64 95
01/03/24 11:33 01/03/24 11:33 01/03/24 11:33 01/03/24 11:33 01/03/24 11:33
01/02/24 01/03/24 01/04/24
06:59 06:59 06:59
Actual Weight 58.513 kg 58.23 kg
01/03/24 04:09
01/03/24 04:09
PT 15.1 Sec (11.4-14.6) H 01/03/24 04:09
INR 1.16 01/03/24 04:09
Magnesium 1.8 mg/dl (1.6-2.3) 01/02/24 05:28
Triglycerides 113 mg/dl (10-149) 01/02/24 05:28
LDL Cholesterol, Calc 99 mg/dl 01/02/24 05:28
VLDL Cholesterol, Calc 22 mg/dl (0-30) 01/02/24 05:28
HDL Cholesterol 33 mg/dl 01/02/24 05:28
LAB Results
01/01/24 01/01/24 01/02/24
20:21 23:17 05:28
Troponin I 0.076 H* 0.080 H* 0.088 H*
01/02/24
11:24
Troponin I 0.070 H*
Physical Exam
Constitutional: No acute distress
EENT: Moist mucous membranes
Cardiovascular: Rhythm & rate is regular, Pedal edema is absent, JVD pressure is normal and Systolic murmur present
Respiratory: Respiratory effort normal and Lungs clear to auscul.
Neuro/Psych: AO x 3
Data Reviewed
-
Date of Service: January 03, 2024
EKG: Other (SR, PAC's, PVC's)
Labs: Labs Reviewed by me
[2024-01-03 15:15] VITALS: BP 125/77
[2024-01-03] MEDS: STERILE WATER FOR INJECTION 10 ML IV (15:23)
[2024-01-03] MEDS: ROCEPHIN 1000 MG IV (15:23)
[2024-01-03 19:30] VITALS: BP 115/70
[2024-01-03] MEDS: TOPROL XL 25 MG PO (21:27)
[2024-01-03] MEDS: FLOMAX 0.4 MG PO (21:27)
[2024-01-03 23:17] VITALS: BP 134/76
[2024-01-04] VITALS (13 sets, daily range): BP systolic 110–148; BP diastolic 58–75; PULSE 68; O2SAT 96
[2024-01-04 06:42] LABS: % Basophils 0.1 % (0-2); % Immature Granulocytes 1.7 % (0-0.5); % Lymphocytes 16.3 % (20.5-51.1); % Monocytes 16.8 % (1.7-9.3); % Neutrophils 63.1 % (42.2-75.2); Absolute Eosinophils 0.2 10^3/uL (0-0.7); Absolute Immature Granulocytes 0.1 10^3/uL (0-0.05); Absolute Lymphocytes 1.2 10^3/uL (1.2-3.4); Absolute Monocytes 1.3 10^3/uL (0.1-0.6); Absolute Neutrophils 4.8 10^3/uL (1.4-6.5); Hematocrit 36.4 % (39.0-52.0); Hemoglobin 12.2 g/dL (13.0-18.0); Mean Corp Hgb Conc. 33.5 g/dL (33.0-37.0); Mean Corpuscular Hgb 32.6 pg (27.0-31.0); Mean Corpuscular Volume 97.3 fL (80.0-94.0); Nucleated Red Blood Cells % 0 % (-); Platelet Count 136 10^3/uL (130-400); Red Blood Cell Count 3.74 10^6/uL (4.70-6.10); Red Cell Dist. Width 15.9 % (11.5-14.5); White Blood Cell Count 7.6 10^3/uL (4.8-10.8)
[2024-01-04 07:04] LABS: ALT (SGPT) 98 U/L (0-50); AST (SGOT) 92 U/L (17-59); Albumin 3.4 g/dl (3.5-5.0); Alkaline Phosphatase 351 U/L (38-126); Blood Urea Nitrogen 9 mg/dl (9-20); Calcium 8.6 mg/dl (8.4-10.2); Carbon Dioxide 22 mmol/L (22-30); Chloride 105 mmol/L (98-107); Estimated Creatinine Clearance 73 ml/min; Glucose 70 mg/dl (70-99); Potassium 3.9 mmol/L (3.5-5.1); Sodium 139 mmol/L (135-145); Total Bilirubin 1.2 mg/dl (0.2-1.3); Total Protein 5.8 g/dl (6.3-8.2); eGFR > 60.00
[2024-01-04] MEDS: FLAGYL 500 MG 100 IV ×3 (08:06→23:07)
[2024-01-04] MEDS: ASPIR LOW (ENTERIC COATED) 81 MG PO (08:06)
--- NOTE | 2024-01-04 11:08 | W.PN.CD ---
Today's Communication / Plan
-
Comfortable in no distress sitting in chair today. Patient in sinus rhythm with PACs.
Continue current dosing of Toprol all.
Impression / Plan
-
88 yo male with PMH of CAD/CABG, mild cardiomyopathy, EF 45%, moderate , LBBB is admitted with rigors and abnormal LFT. Being evaluated for choledocholithiasis. May need ERCP Thursday. We are consulted for pre-operative evaluation.
Pre procedure evaluation for ERCP. No changes since Dr. Medley's assessment as noted
-falls into intermediate risk category: stable to to proceed from cardiac perspective
-given EF 45% and moderate , caution to avoid fluid shifts and hypotension
Abnormal troponin:
-non-ischemic myocardial injury: peak 0.088
-EKG with chronic LBBB
-no anginal symptoms
Rhythm
-sinus with LBBB
-PVC's and 17 beat run NSVT this admit. No significant arrhythmias overnight
-Toprol XL started this admission:
-repeat echo this admission
ICM EF 45%
-no evidence of HF
-Toprol XL started this admission
Moderate
-will repeat echo this admission
CAD:
-prior CAB x3
-con't medical therapy: ASA 81mg
-not on statin as outpatient; not started yet due to abnl LFT
Physical Exam
Vital Signs/Labs
Vital Signs
Temp Pulse Resp BP Pulse Ox
98.1 F 70 18 130/66 95
01/04/24 07:48 01/04/24 07:48 01/04/24 07:48 01/04/24 07:48 01/04/24 08:04
01/03/24 01/04/24 01/05/24
06:59 06:59 06:59
Actual Weight 58.23 kg
01/04/24 04:21
01/04/24 04:21
PT 15.1 Sec (11.4-14.6) H 01/03/24 04:09
INR 1.16 01/03/24 04:09
Magnesium 1.8 mg/dl (1.6-2.3) 01/02/24 05:28
Triglycerides 113 mg/dl (10-149) 01/02/24 05:28
LDL Cholesterol, Calc 99 mg/dl 01/02/24 05:28
VLDL Cholesterol, Calc 22 mg/dl (0-30) 01/02/24 05:28
HDL Cholesterol 33 mg/dl 01/02/24 05:28
LAB Results
01/01/24 01/01/24 01/02/24
20:21 23:17 05:28
Troponin I 0.076 H* 0.080 H* 0.088 H*
01/02/24
11:24
Troponin I 0.070 H*
Physical Exam
Constitutional: No acute distress
Cardiovascular: Rhythm & rate is regular (With periodic irregularity consistent with PACs)
Respiratory: Lungs clear to auscul.
GI: Soft and Non tender
Neuro/Psych: Alert
Data Reviewed
-
Date of Service: January 04, 2024
Medical Decision Making: Reviewed Test Results
X-Ray/CT/US/MRI/NUC/PET: Report Reviewed by me
Medical Tests (PFT, Pathology etc): Report Reviewed by me
Labs: Labs Reviewed by me
--- NOTE | 2024-01-04 12:03 | W.PN.HOSP.TC ---
Today's Communication/Plan
-
see A/P
Assessment / Plan
Assessment / Plan
Physical exam:
General: Comfortbale, Well Developed, Well Nourished and No Apparent Distress
HEENT: Normocephalic, Atraumatic and Moist Mucous Membranes
Respiratory: Clear to Auscultation; Negative Wheezes, Rales or Rhonchi
Cardiac: Regular Rhythm and S1/S2, systolic ejection murmur.
GI: Soft, Nontender and Nondistended. Surgical incisions from prior surgery noticed.
Musculoskeletal: Splint in his left wrist. No Clubbing, No Cyanosis and No Edema
Neuro: Awake, Alert and Oriented
Psych: Calm
A/P:
# Choledocholithiasis (no evidence of acute cholecystitis):
# Transaminitis due to above
MRCP confirms choledocholithiasis.
for ERCP 01/03 per GI
Continue IV antibiotics, IV Rocephin and Flagyl
blood cultures so far negative
Trend LFTs
Appreciate GI and surgery consult
# Troponin elevation 2/2 Non-ischemic myocardial injury
Appreciate Cardiology input
# CAD:
# Prior history of CABG
Toprol XL started this admission
Continue antiplatelets, aspirin
# Moderate aortic stenosis:
Check repeat echo this admission
# BPH:
Continue Flomax
DVT prophylaxis: Lovenox SQ
CODE STATUS: Full code
DW RN
Anticipated Discharge: 24 - 48 hours
Subjective/Interval History
-
Date of Service: January 04, 2024
Objective Data
-
Labs:
Laboratory Results
01/04/24
04:21
WBC 7.6
Hgb 12.2 L
Hct 36.4 L
Plt Count 136
Sodium 139
Potassium 3.9
Chloride 105
Carbon Dioxide 22
BUN 9
Creatinine 0.5 L
Glucose 70
Calcium 8.6
Total Bilirubin 1.2
AST 92 H
ALT 98 H
Alkaline Phosphatase 351 H
Vital Signs:
Vital Signs
Temp Pulse Resp BP Pulse Ox
36.3 C 64 18 124/65 98
01/04/24 11:27 01/04/24 11:27 01/04/24 11:27 01/04/24 11:27 01/04/24 11:27
I&O
01/03/24 01/04/24 01/05/24
06:59 06:59 06:59
Intake Total 1000 / 1000 1240 / 1240
Output Total 775 / 775 900 / 900
Balance 225 / 225 340 / 340
Review of Systems
-
All other systems: Reviewed and negative
Data Reviewed
-
Labs: Labs Reviewed by me
--- NOTE | 2024-01-04 14:42 | CM ---
Chart reviewed
For ERCP today
Remains on IV antibiotics
PT - recs Home PT vs no needs - will follow
From personal care at [facility]
CM will follow for d/c planning
Plan - home no needs vs w/PT
[2024-01-04] MEDS: STERILE WATER FOR INJECTION 10 ML IV (17:30)
[2024-01-04] MEDS: FLUSH (NSS) 3 FLUSH IV (17:31)
[2024-01-04] MEDS: ROCEPHIN 1000 MG IV (17:31)
[2024-01-04] MEDS: FLOMAX 0.4 MG PO (22:19)
[2024-01-04] MEDS: TOPROL XL 25 MG PO (22:19)
[2024-01-05 03:00] VITALS: BP 109/54
[2024-01-05 05:36] LABS: Hematocrit 36.9 % (39.0-52.0); Mean Corp Hgb Conc. 32.5 g/dL (33.0-37.0); Mean Corpuscular Hgb 31.9 pg (27.0-31.0); Mean Corpuscular Volume 98.1 fL (80.0-94.0); Platelet Count 146 10^3/uL (130-400); Red Blood Cell Count 3.76 10^6/uL (4.70-6.10); Red Cell Dist. Width 15.8 % (11.5-14.5); White Blood Cell Count 5.7 10^3/uL (4.8-10.8)
[2024-01-05 06:05] LABS: ALT (SGPT) 81 U/L (0-50); AST (SGOT) 60 U/L (17-59); Albumin 3.2 g/dl (3.5-5.0); Alkaline Phosphatase 325 U/L (38-126); Blood Urea Nitrogen 16 mg/dl (9-20); Calcium 8.6 mg/dl (8.4-10.2); Carbon Dioxide 20 mmol/L (22-30); Chloride 106 mmol/L (98-107); Estimated Creatinine Clearance 73 ml/min; Glucose 102 mg/dl (70-99); Magnesium 1.6 mg/dl (1.6-2.3); Potassium 4.5 mmol/L (3.5-5.1); Sodium 141 mmol/L (135-145); Total Protein 5.6 g/dl (6.3-8.2); eGFR > 60.00
[2024-01-05 07:03] VITALS: BP 101/60
[2024-01-05] MEDS: ASPIR LOW (ENTERIC COATED) 81 MG PO (08:41)
[2024-01-05] MEDS: FLAGYL 500 MG 100 IV (08:41)
--- NOTE | 2024-01-05 08:58 | W.PN.CD ---
Today's Communication / Plan
-
chf team consults
cm c/s for pricing of medications
will follow to initiate gdmt as able
Impression / Plan
-
88 yo male with PMH of CAD/CABG, mild cardiomyopathy, EF 45%, moderate , LBBB is admitted with rigors and abnormal LFT. Being evaluated for choledocholithiasis. May need ERCP Thursday. We are consulted for pre-operative evaluation.
Primary assistant women's tennis coach: Dr. Ortiz
Choledocholithiasis (no evidence of acute cholecystitis): Status post ERCP, recommending surgical evaluation for cholecystectomy.
-Tolerated procedure without complication.
-Good functional status, EF is 30 to 35% but no symptoms of chest pain, shortness of breath.
-No contraindication to proceeding with surgery if needed. He will be elevated but not prohibitive risk.
ICM EF 45%
-no evidence of decompensated HF, NYHA class 1-2
�Echo yesterday shows EF 30 to 35%. Global hypokinesis noted. Nicolas discussion about the management and prognosis for CMY
-Would pursue outpatient noninvasive testing/angiography for further workup as to etiology.
-Toprol XL started this admission
-Will ask case management to farr SGLT2 inhibitors, likely initiation once medically stable.
-Blood pressure currently limits her ability to start ARB/ARNI, MRA
-He is euvolemic and does not need any diuresis.
-Heart failure team consult placed.
Abnormal troponin:
-non-ischemic myocardial injury: peak 0.088
-EKG with chronic LBBB
-no anginal symptoms
Rhythm
-sinus with LBBB
-PVC's and 17 beat run NSVT this admit. None further on telemetry.
-Toprol XL started this admission:
-repeat echo this admission
Moderate
-stable on echo
CAD:
-prior CAB x3
-con't medical therapy: ASA 81mg
-not on statin as outpatient; not started yet due to abnl LFT
Subjective:
he is feeling better, no orthopnea, pnd or le edema/
TTE 01/04/24:
CONCLUSIONS
Moderately reduced left ventricular systolic function.
Left ventricular ejection fraction is 30-35%
Global Hypokinesis
LVH
Mooderate aortic stenosis.Peak gradient 35mmHg/Mean gradient 21mmHg
No prior study available for comparison.
Physical Exam
Vital Signs/Labs
Vital Signs
Temp Pulse Resp BP Pulse Ox
97.0 F 60 14 101/60 96
01/05/24 07:03 01/05/24 07:03 01/05/24 07:03 01/05/24 07:03 01/05/24 07:03
01/05/24 04:27
01/05/24 04:27
PT 15.1 Sec (11.4-14.6) H 01/03/24 04:09
INR 1.16 01/03/24 04:09
Magnesium 1.6 mg/dl (1.6-2.3) 01/05/24 04:27
Triglycerides 113 mg/dl (10-149) 01/02/24 05:28
LDL Cholesterol, Calc 99 mg/dl 01/02/24 05:28
VLDL Cholesterol, Calc 22 mg/dl (0-30) 01/02/24 05:28
HDL Cholesterol 33 mg/dl 01/02/24 05:28
LAB Results
01/02/24
11:24
Troponin I 0.070 H*
Physical Exam
Constitutional: No acute distress
Cardiovascular: Rhythm & rate is regular, Pedal edema is absent, JVD pressure is normal, Systolic murmur absent and Diastolic murmur absent
Respiratory: Respiratory effort normal, Lungs clear to auscul., Wheeze Absent, Crackles Absent and Rhonchi Absent
Neuro/Psych: AO x 3
Data Reviewed
-
Date of Service: January 05, 2024
Medical Decision Making: Review of Case with other Provider (d/w dr Orona worsened ef but no acute decompensation, would still proceed to surgery as planned. )
--- NOTE | 2024-01-05 11:24 | W.PN.GS2 ---
Today's Communication / Plan
-
Cont current mgmt
Diet advanced to LRD
Assessment / Plan
-
88M with choledocholithiasis s/p successful ERCP
MRI and US reviewed by me do not appear to show any additional gallstones.
Given his advanced age, comorbidities and lack of additional stones, in my view the risks of surgery outweigh the benefits at this time. Furthermore, the patient is not interested in surgery for his gallbladder. I explained I don't expect him to
have future similar episodes but I cannot guarantee he will not. If he does have another episode it may change our recommendation to one that supports operative mgmt.
GS will s/o pls call with ?s
Defer care to primary team
Subjective Data
-
Date of Service: January 05, 2024
AFVSS, no complaints, hungry, denies pain
Objective Data
-
Intake and Output
01/04/24 01/05/24 01/06/24
06:59 06:59 06:59
Intake Total 1240 / 1240 950 / 950
Output Total 900 / 900 450 / 450
Balance 340 / 340 500 / 500
Intake:
Oral fluids 1140 / 1140 600 / 600
IV fluids (Total) 150 / 150
LR 50 / 50
IV piggybacks 100 / 100 200 / 200
Output:
Urine, Voided 900 / 900 450 / 450
Other:
Number of approximated MODERATE 3 2
amounts of urine
Vital Signs
Temp Pulse Resp BP Pulse Ox
97.0 F 60 14 101/60 96
01/05/24 07:03 01/05/24 07:03 01/05/24 07:03 01/05/24 07:03 01/05/24 07:03
Lab Results
01/05/24 04:27
01/05/24 04:27
Calcium 8.6 mg/dl (8.4-10.2) 01/05/24 04:27
Magnesium 1.6 mg/dl (1.6-2.3) 01/05/24 04:27
Total Bilirubin 1.0 mg/dl (0.2-1.3) 01/05/24 04:27
Direct Bilirubin 0.2 mg/dl (0.0-0.4) 01/02/24 05:28
AST 60 U/L (17-59) H 01/05/24 04:27
ALT 81 U/L (0-50) H 01/05/24 04:27
Alkaline Phosphatase 325 U/L (38-126) H 01/05/24 04:27
Total Protein 5.6 g/dl (6.3-8.2) L 01/05/24 04:27
Albumin 3.2 g/dl (3.5-5.0) L 01/05/24 04:27
Physical Exam
-
Gen: NAD
Abd: soft, nt, nd
--- NOTE | 2024-01-05 11:43 | CM ---
Addendum entered by Radhika Bose 01/05/24 12:59:
Pt for discharge today
Discussed home PT - declined
Discussed IMM
Called [facility] - updated staff, pt for discharge today
Daughter to transport
Plan - return to [facility]
Report - [phone], ask for nsg
Fax - [phone]
Addendum entered by Radhika Bose 01/05/24 12:08:
PT recs - home PT vs no needs
Spoke with Lyudmila at [facility] [phone]
Preferred provider is [facility] for PT
Contact info at d/c - Report - [phone], ask for nsg; Fax - [phone]
Plan - anticipate home no needs vs w/VN
Original Note:
CM consult for med pricing
Called [facility] - [phone], spoke with technical account representative
Farxiga 10mg QD - 30 day -$100; 90 day - $100
Jardiance 10mg QD - 30 day - $50; 90 day $150
Entresto 24/26mg BID - 30 day - $46.66; 90 day $150
Will update physician and pt of medication pricing
Plan - anticipate home no needs vs w/VN
[2024-01-05 11:54] VITALS: BP 115/57
--- NOTE | 2024-01-05 12:04 | W.PN.HOSP.TC ---
Addendum entered and electronically signed by Libertad Orona MD 01/06/24 12:59:
# Underweight
Original Note:
Today's Communication/Plan
-
see A/P
Assessment / Plan
Assessment / Plan
Physical exam:
General: Comfortbale, Well Developed, Well Nourished and No Apparent Distress
HEENT: Normocephalic, Atraumatic and Moist Mucous Membranes
Respiratory: Clear to Auscultation; Negative Wheezes, Rales or Rhonchi
Cardiac: Regular Rhythm and S1/S2, systolic ejection murmur.
GI: Soft, Nontender and Nondistended. Surgical incisions from prior surgery noticed.
Musculoskeletal: Splint in his left wrist. No Clubbing, No Cyanosis and No Edema
Neuro: Awake, Alert and Oriented
Psych: Calm
A/P:
# Choledocholithiasis (no evidence of acute cholecystitis):
# Transaminitis due to above, improving
MRCP confirms choledocholithiasis.
s/p ERCP 01/03, noted choledocholithiases and complete removal was accomplished
DC further IV Rocephin and Flagyl
blood cultures negative
Trend LFTs outpt
Per GS, risks of surgery (perc alison) outweigh the benefits. Pt also not interested in perc alison at this time
Appreciate GI and surgery consult
# Troponin elevation 2/2 Non-ischemic myocardial injury
Appreciate Cardiology input
# CAD:
# Prior history of CABG
Toprol XL started this admission
Continue antiplatelets, aspirin
# Moderate aortic stenosis:
Echo this admission: EF 30-35%. Global Hypokinesis. Confirmed moderate aortic stenosis.
# BPH:
Continue Flomax
DVT prophylaxis: Lovenox SQ
CODE STATUS: Full code
DW Card
DW DIL on the phone
Anticipated Discharge: Today
Subjective/Interval History
-
Date of Service: January 05, 2024
Objective Data
-
Labs:
Laboratory Results
01/05/24
04:27
WBC 5.7
Hgb 12.0 L
Hct 36.9 L
Plt Count 146
Sodium 141
Potassium 4.5
Chloride 106
Carbon Dioxide 20 L
BUN 16
Creatinine 0.6 L
Glucose 102 H
Calcium 8.6
Total Bilirubin 1.0
AST 60 H
ALT 81 H
Alkaline Phosphatase 325 H
Vital Signs:
Vital Signs
Temp Pulse Resp BP Pulse Ox
36.9 C 61 16 115/57 96
01/05/24 11:54 01/05/24 11:54 01/05/24 11:54 01/05/24 11:54 01/05/24 11:54
I&O
01/04/24 01/05/24 01/06/24
06:59 06:59 06:59
Intake Total 1240 / 1240 950 / 950
Output Total 900 / 900 450 / 450
Balance 340 / 340 500 / 500
Review of Systems
-
All other systems: Reviewed and negative
Data Reviewed
-
Labs: Labs Reviewed by me
--- NOTE | 2024-01-05 13:15 | PN.CDI ---
CDI
- -
CDI:
Physician Documentation Request
Admit Date: 01/01/24 23:21
Dear Doctor Adwoa,
01/01- notes state 'chart reviewed due to pt with BMI < 19 underweight range.... unintentional weight loss'
01/01 BMI 18.5
If possible, please provide an associated diagnosis related to the abnormal BMI, such as:
BMI < or = to 19
Underweight
Weight Loss
Cachectic
Anorexia
- BMI is not significant
- Other
Use of terms such as suspected, likely, concern for, or probable (associated with a specific diagnosis that is being evaluated, monitored, or treated as if it exists) are acceptable and can be coded in the inpatient setting, when documented at the
time of discharge.
Thank you,
Sushma Dougherty RN, BSN
CDI Specialist
tiger text
Please use your independent medical judgment in providing your response.
--- NOTE | 2024-01-05 14:47 | W.DCSUMMARY ---
Discharge Summary
Discharge Data
Date of Admission: 01/01/24
Date of Discharge: 01/05/24
-
Pending Results: No
Hospital Course
Principal Diagnosis:
Choledocholithiasis with improved transaminitis
Non-ischemic myocardial injury
Chronic Diagnoses:�
Coronary artery disease status post bypass surgery
Moderate aortic stenosis
Benign prostate hypertrophy
Prior prostate cancer status post radiation
Consultations:�
Gastroenterology
General Surgery
Cardiology
Procedures:�
ERCP 01/03, noted choledocholithiases and complete removal was accomplished
Clinical course:�
This is a 88-year-old male, with past medical history as stated above, who presented with outpatient abnormal LFT tests.
Problem 1:
Choledocholithiasis with improved transaminitis.
His MRCP confirmed choledocholithiasis.
He underwent ERCP 01/03, which noted choledocholithiases that were completely removed per GI.
He did received empiric IV antibiotics Rocephin and Flagyl while in the hospital for 4 days; antibiotic was not continued following discharge given lack of evidence of acute infection.
He can follow-up LFT outpatient with his PCP.
According to general surgery, the risk of percutaneous cholecystectomy outweighs benefit, patient is also not interested in surgery at this time.
Problem 2:
Coronary artery disease status post bypass surgery.
His echo this admission noted low EF at 30-35%.
Toprol XL was started per card.
As for the rest of his medical problems, they were stable during his hospital stay.
Discharge Plan
-
Patient Disposition: Home (Routine Discharge)
Discharge Diagnosis/Procedures: Choledocholithiasis with transaminitis (improving) status post ERCP 01/03 and removal of stones;
Cardiomyopathy (echo this admission noted EF 30-35%. Global Hypokinesis);
Moderate aortic stenosis
Condition: Fair
Diet: As tolerated, Low Fat and Low Cholesterol
Activity: As tolerated
Driving Restrictions: Not until seen by your Dr
Blood Work: LFT in 1 week, result to PCP
Referrals:
Felicity Sandhu, DO [Family Provider] - in less than 1 week
Additional Discharge Medication Instructions: You were started with Toprol this admission for cardiomyopathy (EF 30-35%)
Prescriptions:
New
metoprolol succinate 25 mg Tablet Extended Release 24 Hr
25 mg PO HS Qty: 30 0RF
Continued
cyanocobalamin (vitamin B-12) 1,000 mcg Tablet
1,000 mcg PO DAILY
aspirin 81 mg Tablet,Delayed Release (Dr/Ec)
81 mg PO DAILY
tamsulosin 0.4 mg capsule
0.4 mg PO HS
calcium carbonate 200 mg calcium (500 mg) Tablet,Chewable
200 mg PO BID
cholecalciferol (vitamin D3) 25 mcg (1,000 unit) Tablet
25 mcg PO DAILY
Discharge Orders:
Discharge Patient (As Directed); Ordered 01/05/24
Ordered By: Libertad Orona
Discharge Date and Time
Print Language: WOLOF
[2024-01-05 15:10] VITALS: BP 105/48
== END 2024-01-05 15:20 | disposition home or self-care (01) | DRG 445 ==
LOC: 2 SOUTH 23:21
PROVIDERS: Emergency Medicine; Hospitalist; Internal Medicine Gastroenterology; ADMITTING PHYSICIAN Internal Medicine; ATTENDING PHYSICIAN Internal Medicine; CONSULT PHYSICIAN Internal Medicine; CONSULT PHYSICIAN Internal Medicine Gastroenterology; CONSULT PHYSICIAN Surgery; EMERGENCY PHYSICIAN Emergency Medicine; FAMILY PHYSICIAN Hospitalist
PROC: 0FC98ZZ Extirpation of Matter from Common Bile Duct, Via Natural or Artificial Opening Endoscopic (ICD-10-PCS; 2024-01-04)
DX: K80.50 Calculus of bile duct without cholangitis or cholecystitis without obstruction (principal); I5A Non-ischemic myocardial injury (non-traumatic); Z68.1 Body mass index [BMI] 19.9 or less, adult; I35.0 Nonrheumatic aortic (valve) stenosis; I25.10 Atherosclerotic heart disease of native coronary artery without angina pectoris; N40.0 Benign prostatic hyperplasia without lower urinary tract symptoms; I25.5 Ischemic cardiomyopathy; R63.6 Underweight; K76.0 Fatty (change of) liver, not elsewhere classified; I10 Essential (primary) hypertension; I44.7 Left bundle-branch block, unspecified; K59.00 Constipation, unspecified; F32.A Depression, unspecified; Z95.1 Presence of aortocoronary bypass graft; Z92.3 Personal history of irradiation; Z85.46 Personal history of malignant neoplasm of prostate; Z87.891 Personal history of nicotine dependence; Z88.8 Allergy status to other drugs, medicaments and biological substances; Z79.82 Long term (current) use of aspirin; Z96.642 Presence of left artificial hip joint; Z90.49 Acquired absence of other specified parts of digestive tract; Z79.899 Other long term (current) drug therapy
CPT/HCPCS: 74181; 74330; 76000; 76700; 80053; 80061; 81003; 81015; 82248; 83690; 83735; 84443; 84484; 85025; 85027; 85610; 87040; 87086; 93005; 93306; 96374; 97161; 97166; 99285; C1726; C1769

== ENCOUNTER 2024-01-28 08:29 | Day surgery (SDC) | payer OTHER, SELFPAY ==
[2024-01-28 08:52] VITALS: BP 133/76; BMI 18.5
[2024-01-28 09:12] LABS: Blood Urea Nitrogen 10 mg/dl (9-20); Carbon Dioxide 28 mmol/L (22-30); Chloride 100 mmol/L (98-107); Estimated Creatinine Clearance 61 ml/min; Glucose 100 mg/dl (70-99); Potassium 4.3 mmol/L (3.5-5.1); Sodium 137 mmol/L (135-145); eGFR > 60.00
--- NOTE | 2024-01-28 11:56 | ITS.CL.CATH ---
Director Of Services - Catheterization
Cardiac Catheterization
Procedure Report:
CARDIAC CATHETERIZATION REPORT
Date of Procedure: 01/28/2024
Referring: Mohit Reardon D.O.
Indication: Aortic valve stenosis, progressive cardiomyopathy, known coronary artery disease.
PROCEDURE:
1. Right heart catheterization.
2. Left heart catheterization.
3. Coronary angiography.
4. Aortic valve interrogation.
5. Left ventriculography.
6. Dobutamine challenge.
7. Sat run.
ACCESS:
6 [place] right common femoral artery using a modified Seldinger technique with a micropuncture kit under ultrasound guidance.
5 [place] right common femoral vein using a modified Seldinger technique with a micropuncture kit under ultrasound guidance.
CATHETERS:
1. 5 [place] balloon wedge.
2. 5 [place] JL 4.
3. 5 [place] JR4.
4. 5 [place] HELIO.
5. 6 [place] dual-lumen pigtail.
HEMODYNAMIC DATA
Weight (kg): 56.8
AO (s/d/x mmHg): 125/50/98
LV (s/x mmHg): 159/24
PCWP (a/v/x mmHg): 28/45/25
PA (s/d/x mmHg): 55/22/33
RV (s/x mmHg): 55/5
RA (a/v/x mmHg): 11/7/5
SVC SvO2 (%): 58.0
PA SvO2 (%): 68.4
SaO2 (%): 96.6
Hbg (g/dL): 12.6
CO (L/min): 4.37
CI (L/min/m2): 2.59
TPG (mmHg): 8
PVR (Pritchard Units): 1.83
SVR (dynes*seconds*cm^-5): 1703
AVO2 Diff (Volume %): 4.83
AV gradient (x, mmHg): 27.7
AV area (cm2): 0.96
DOBUTAMINE 5 mcg/kg/min
PA SvO2 (%): 68.5
SaO2 (%): 97.3
CO (L/min): 4.28
CI (L/min/m2): 2.53
AV gradient (x, mmHg): 28.1
AV area (cm2): 0.93
DOBUTAMINE 10 mcg/kg/min
PA SvO2 (%): 68.0
SaO2 (%): 96.6
CO (L/min): 4.31
CI (L/min/m2): 2.55
AV gradient (x, mmHg): 29.6
AV area (cm2): 0.86
DOBUTAMINE 20 mcg/kg/min
PA SvO2 (%): 69.7
SaO2 (%): 97.5
CO (L/min): 4.44
CI (L/min/m2): 2.62
AV gradient (x, mmHg): 34.2
AV area (cm2): 0.83
SAT RUN
SVC SvO2 (%): 69.4
IVC SvO2 (%): 78.6
RA SvO2 (%): 74.3
RV SvO2 (%): 73.1
PA SvO2 (%): 69.7
MV SvO2 (%): 71.7
SaO2 (%): 97.5
LEFT VENTRICULOGRAPHY: Performed in an GALVIN projection. Severely dilated left ventricle with severe, global hypokinesis and severely depressed left ventricular systolic function. LV ejection fraction estimated at 20%. There is trace mitral valve
regurgitation. There is no visible aortic valve insufficiency. The aortic root and visualized ascending and descending thoracic aorta appear normal.
CORONARY ANGIOGRAPHY
Dominance: Right.
Left Main: Normal size, bifurcating vessel. There is no coronary artery disease.
LAD: Normal size vessel giving rise to 1 significant diagonal. The vessel is severely, diffusely diseased in its proximal and midportion with a discrete, 90% lesion proximal to the first diagonal and a chronic total occlusion of the mid vessel.
The distal LAD is supplied by patent PEREYRA graft. The diagonal supplied by patent vein graft. There is a 50-60% lesion in the distal LAD, distal to the PEREYRA anastomosis.
Ramus: Congenitally absent.
Circumflex: Normal size vessel giving rise to 1 significant marginal. The obtuse marginal is chronically totally occluded at its origin. The obtuse marginal supplied by patent vein graft.
RCA: Normal size, dominant vessel. There is a 20% lesion in the origin of the RCA. There is a 30% lesion in the mid RCA.
BYPASS GRAFT ANGIOGRAPHY
PEREYRA to LAD: Normal size graft with end-to-side anastomosis to the mid LAD. There is no evidence of stenosis or graft degeneration.
SVG to D1: Normal size graft with end-to-side anastomosis to the first diagonal. There is no evidence of stenosis or graft degeneration.
SVG to OM1: Normal size graft with end-to-side anastomosis to the first obtuse marginal. There is no evidence of stenosis or graft degeneration.
INTERVENTIONS
1. Dobutamine challenge.
Given the borderline findings of aortic valve stenosis with low ejection fraction in the absence of coronary artery disease, the decision was made to proceed with dobutamine challenge.
Dobutamine was started at 5 mcg/kg/min. After 5 minutes cardiac output/index and LV/aortic pressure gradients were measured.
Dobutamine was increased to 10 mcg/kg/min. After 5 minutes, measurements were repeated.
Dobutamine was increased to 20 mcg/kg/min. After 5 minutes, measurements were repeated.
Dobutamine was turned off. Pullback of the dual-lumen catheter was performed confirming fidelity of measurement.
Closure Device: Manual pressure for the right common femoral artery and vein.
Radiation dose (mGy): 390.27
DAP (cm2.Gy): 33.1083
Fluoroscopy time (minutes): 9.4
Sedation time (minutes): 53
CONCLUSIONS:
1. Right dominant circulation with a 20% lesion in the proximal RCA, a 30% lesion in the mid RCA, and 90% lesion in the first diagonal with diffuse, severe disease in the proximal and mid LAD with a chronic total occlusion in the mid vessel after
D1, a 50-60% lesion in the distal LAD, a 90% lesion in the proximal diagonal and a chronic total occlusion of the first obtuse marginal status post prior three-vessel bypass (patent PEREYRA to LAD, patent SVG to D1, patent SVG to OM1).
2. Severe, mixed, ischemic and nonischemic dilated cardiomyopathy. LV ejection fraction estimated at 20%.
3. Moderate to severe low-flow, low gradient aortic valve stenosis, stage C2.
4. Somewhat depressed myocardial reserve, with minimal response to dobutamine infusion.
5. Severely elevated filling pressures (LVEDP = 24 mmHg, PCWP = 25 mmHg at 56.8 kg).
6. Mild, postcapillary pulmonary hypertension (mean PA = 33 mmHg, PCWP = 25 mmHg, cardiac output = 4.37 L/min, PVR = 1.83 Pritchard units), WHO group 2.
RECOMMENDATIONS:
1. Expectant management after cardiac catheterization via right common femoral approach.
2. Limited weight bearing for one week.
3. Consultation with CT surgery and the multidisciplinary valve team regarding optimal strategy given severe, low-flow, low gradient aortic valve stenosis with limited myocardial reserve.
4. Given severe, mixed cardiomyopathy with left bundle branch block, we will refer for primary prevention ANNEALING OVEN OPERATOR�D.
5. Guideline directed medical therapy as hemodynamics will tolerate.
Copy to: Felicity Sandhu D.O.
Mohit Reardon, DO, FACC, FACP
[2024-01-28 12:55] VITALS: BP 115/70
[2024-01-28 13:26] VITALS: BP 103/70
[2024-01-28 13:54] VITALS: BP 122/104
--- NOTE | 2024-01-28 14:20 | CONSULT.STRU ---
Consultation
-
Date/Time Consultation Requested: 01/28/2024
Date/Time Consultation Performed: 01/28/2024
Requesting Provider: Mohit Reardon DO
Performing Provider: JERI Barnett
Reason for Consultation: LF-LG /TAVR
Patient History
Physicians
Family Physician: Lakisha Cruz MD
Outpatient Group Care Worker: Mohit Reardon DO
Primary Group Care Worker: Mohit Reardon DO
History of Present Illness
Mr. Mullins is a very pleasant 88 yom that presents with LF-LG . He states he has noticed increasing fatigue over the last three months, and positional dizziness. Patient denies SOB, SHAW, or CP. His echocardiogram from 01/04/2024 is notable for
EF: 30-35%, AV P/M 35/21, COLE 1.1, DI 0.3, pk nyla.2.94, trace MR, trace TR, PAP 20-25. Discussed the pathophysiology and treatment options of aortic stenosis including TAVR and SAVR. Explained the evaluation process comprising of CT scan, CT
surgical consult, dental clearance, and a heart team discussion. TAVR booklet, prescriptions, appointments, and contact information given to patient. Allowed for and answered questions at bedside.
Past Medical History
Past Medical History: Cancer (prostate), HTN and Other (dilated CM, CAD (s/p CABG), LVH)
Past Surgical History
Past Surgical History: CABG, Orthopedic ((L) THR, spinal surgery) and Other (colon surgery)
Dental History
Patient needs to find a dentist and will call the office when he has one
Family History
Mother: N/A
Father: N/A
Family Medical History: CAD and Cancer
Social History
Alcohol: Occasional
Drug: None
Tobacco: Smoker
Living: Assisted Living
Allergies
Allergy/AdvReac Type Severity Reaction Status Date / Time
NSAIDS (Non-Steroidal Allergy Unknown Unknown Verified 01/01/24 18:52
Anti-Inflamma
Home Medications
�Medication �Instructions �Recorded �Confirmed �Type
aspirin 81 mg tablet,delayed 81 mg PO DAILY 01/01/24 01/28/24 History
release
calcium carbonate 200 mg PO BID 01/01/24 01/28/24 History
cholecalciferol (vitamin D3) 25 25 mcg PO DAILY 01/01/24 01/28/24 History
mcg (1,000 unit) tablet
cyanocobalamin (vitamin B-12) 1,000 mcg PO DAILY 01/01/24 01/28/24 History
1,000 mcg tablet
tamsulosin 0.4 mg capsule 0.4 mg PO HS 01/01/24 01/01/24 History
dapagliflozin propanediol 10 mg 10 mg PO DAILY #1 tab 01/28/24 Rx
tablet (Farxiga)
lisinopril 2.5 mg tablet 2.5 mg PO DAILY #30 tabs 01/28/24 Rx
STS%
STS %: 5.86
Review of Systems
-
History Source: Patient
General: Reports Fatigue
HEENT: Reports No Symptoms
Respiratory: Reports No Symptoms
Cardiac: Reports No Symptoms
Abdomen/GI: Reports No Symptoms
: Reports No Symptoms
Musculoskeletal: Reports No Symptoms
Skin: Reports No Symptoms
Neurological: Reports Dizzy (positional )
Vascular: Reports No Symptoms
Physical Exam
Vital Signs
Temp 97.5 F 01/28/24 08:52
Pulse 63 01/28/24 14:00
Resp Rate 0 01/28/24 14:00
Blood pressure 122/104 01/28/24 13:54
MAP (cuff-Elie Monitor) 112 01/28/24 13:54
SaO2 97 01/28/24 14:00
Can the patient verbally communicate their pain? Yes 01/28/24 14:00
Actual Weight 56.8 kg 01/28/24 08:52
Body Mass Index (BMI) 18.5 01/28/24 08:52
Labs
01/28/24 08:43
Diagnostic Studies
ECHOCARDIOGRAM 01/04/2024:
CONCLUSIONS
Moderately reduced left ventricular systolic function.
Left ventricular ejection fraction is 30-35%
Global Hypokinesis
LVH
Moderate aortic stenosis.Peak gradient 35mmHg/Mean gradient 21mmHg
Exam
General: Well Developed, Well Nourished, No Apparent Distress and Comfortable
HEENT: Normocephalic
Neck: Trachea Midline
Respiratory: Clear (ANTERIORLY)
Cardiac: Regular Rhythm and Murmur (II/ FARZANA)
GI: Soft and Non Tender
Rectal: Deferred by Provider
Skin: Warm and Dry
Neuro: Awake, Alert, Oriented and AO x 3
Psych: Calm
Assessment / Plan
-
LF-LG
Continue TAVR evaluation
TAVR CT scan (Rx given)
CT surgical consult (MPT 02/22)
Frailty and [id number] at consult
Continue aspirin
Dental clearance -- pt will need to find a new dentist
Heart team discussion
Data Reviewed
-
EKG: Tracing Personally Visualized and interpreted (LBBB)
Cottonseed Meat Presser: Discussed with Physician
Echo: Report Reviewed by me and Discussed with Physician
Labs: Labs Reviewed by me
Old Records: Reviewed (Dr. Reardon's office note)
Total Time Spent with Patient (in minutes): 45
[2024-01-28 14:24] VITALS: BP 128/65
[2024-01-28 14:50] VITALS: BP 122/63
== END 2024-01-28 15:10 | disposition home or self-care (01) ==
LOC: CATH 08:29
PROVIDERS: ATTENDING PHYSICIAN Internal Medicine Cardiovascular Disease; FAMILY PHYSICIAN Hospitalist
DX: I08.0 Rheumatic disorders of both mitral and aortic valves (principal); I25.10 Atherosclerotic heart disease of native coronary artery without angina pectoris; I42.0 Dilated cardiomyopathy; I44.7 Left bundle-branch block, unspecified; Z95.1 Presence of aortocoronary bypass graft; I10 Essential (primary) hypertension; Z82.49 Family history of ischemic heart disease and other diseases of the circulatory system; F17.200 Nicotine dependence, unspecified, uncomplicated; Z88.6 Allergy status to analgesic agent; Z79.84 Long term (current) use of oral hypoglycemic drugs; Z79.899 Other long term (current) drug therapy
CPT/HCPCS: 80048; 93005; 93461; 93463; 99152; 99153; C1769; C1894; Q9967

== ENCOUNTER → 2024-02-16 09:32 | Outpatient (REF) | payer OTHER, SELFPAY | LOC: RAD 09:32 | PROVIDERS: ATTENDING PHYSICIAN Nurse Practitioner Acute Care; FAMILY PHYSICIAN Hospitalist | DX: I35.0 Nonrheumatic aortic (valve) stenosis (principal) | CPT/HCPCS: 74174; 75572; Q9967 ==

== ENCOUNTER 2024-03-24 09:35 | Inpatient (IN) | payer OTHER, SELFPAY ==
[2024-03-15 12:42] VITALS: BMI 18.7
[2024-03-15 13:14] LABS: Urine Albumin 2+ (Neg - Trace); Urine Bilirubin Negative (Negative); Urine Character Clear (Clear); Urine Color Yellow; Urine Glucose Negative (Negative); Urine Ketone Negative (Negative); Urine Leukocyte 1+ (Negative); Urine Nitrite Negative (Negative); Urine Occult Blood Negative (Negative); Urine Urobilinogen Negative (Neg - 1+)
[2024-03-15 13:16] LABS: % Basophils 0.2 % (0-2); % Immature Granulocytes 0.7 % (0-0.5); % Lymphocytes 19.9 % (20.5-51.1); % Monocytes 18.6 % (1.7-9.3); % Neutrophils 58.6 % (42.2-75.2); Absolute Eosinophils 0.1 10^3/uL (0-0.7); Absolute Lymphocytes 0.9 10^3/uL (1.2-3.4); Absolute Monocytes 0.9 10^3/uL (0.1-0.6); Absolute Neutrophils 2.7 10^3/uL (1.4-6.5); Mean Corp Hgb Conc. 33.3 g/dL (33.0-37.0); Mean Corpuscular Hgb 32.3 pg (27.0-31.0); Mean Platelet Volume 12.2 fL (7.4-10.4); Nucleated Red Blood Cells % 0 % (-); Platelet Count 121 10^3/uL (130-400); Red Blood Cell Count 4.02 10^6/uL (4.70-6.10); Red Cell Dist. Width 14.6 % (11.5-14.5); White Blood Cell Count 4.6 10^3/uL (4.8-10.8)
[2024-03-15 13:25] LABS: INR 1.06; PT 14.1 Sec (11.4-14.6)
[2024-03-15 13:26] LABS: APTT 28.6 Sec (23.4-35.0)
[2024-03-15 13:49] LABS: ALT (SGPT) < 10 U/L (0-50); AST (SGOT) 24 U/L (17-59); Albumin 4.6 g/dl (3.5-5.0); Alkaline Phosphatase 65 U/L (38-126); Blood Urea Nitrogen 15 mg/dl (9-20); Calcium 9.7 mg/dl (8.4-10.2); Carbon Dioxide 26 mmol/L (22-30); Chloride 102 mmol/L (98-107); Direct Bilirubin 0.3 mg/dl (0.0-0.4); Estimated Creatinine Clearance 63 ml/min; Glucose 89 mg/dl (70-99); Potassium 4.6 mmol/L (3.5-5.1); Sodium 136 mmol/L (135-145); Total Bilirubin 0.9 mg/dl (0.2-1.3); Total Protein 6.8 g/dl (6.3-8.2); eGFR > 60.00
[2024-03-15 14:06] LABS: Urine Bacteria Few (Negative); Urine Red Blood Cell 0-2 /HPF (0-2)
[2024-03-15 14:27] LABS: NT-proBNP 3780 pg/ml
--- NOTE | 2024-03-15 15:42 | W.PN.UPDATE ---
Update Note
Progress Note Update
Assessed patient in preadmission testing and confirmed medication list. Patient is no longer taking Farxiga and started 500 mg Amoxicillin (03/15/2024) for a UTI. He will take 81 mg aspirin prior to his 0930 arrival time to the [facility].
Harpreet understands the risks of the procedure as discussed in consult including stroke, vascular injury, and PPM. Informed patient that he will get a phone call from the heart team on Thursday before his TAVR. Allowed for and answered questions.
--- NOTE | 2024-03-15 15:45 | CM ---
spoke to pt in PAT's. he is prev indep, lives with [place] at an asst living/[facility] [place]. he denies any dme's. he has the TAVR educ book, soap and instructions. he is agreeable to a f/u visit fromt he ct transitional care nurses after
dc. cm role explained and all questions answered
[2024-03-16 09:27] LABS: Glycohemoglobin (HgbA1c) 4.9 % (4.0-5.6)
[2024-03-24] VITALS (14 sets, daily range): BP systolic 100–136; BP diastolic 52–77; BMI 18.8
[2024-03-24] MEDS: ANCEF 10 IV ×2 (09:00→09:30)
--- NOTE | 2024-03-24 10:29 | W.CVOR.SURPR ---
CVOR Surgeon Immed Pre Op
-
I have examined this patient prior to performance of the scheduled procedure.
The patient's condition is unchanged from the time of the dictated/written History and
Physical and the patient is able to undergo the scheduled procedure.
TF TAVR
Limited rescue - ok for CPR or shocks, no CPB or Sternotomy (redo)
--- NOTE | 2024-03-24 11:28 | CM ---
Addendum entered by Melia Troncoso RN 03/24/24 14:29:
Report called to [phone]/
Original Note:
Patient in OR today for planned TAVR procedure.
Reviewed initial assessment. Pt. resides at [facility] w/ spouse. Functoinally, patient is indep. w/ ADLs, mobility.
Antic. return to [facility] upon DC w/ CT Transitional Care RN.
Attempted to reach [facility], to ascertain process for return; no response-will re-attempt later.
CM to follow.
[2024-03-24 12:04] LABS: ACT-LR - POC 318 Seconds (116-155)
--- NOTE | 2024-03-24 12:19 | W.PN.CT.SURG ---
CT Surgery Operative Note
-
OPERATIVE REPORT
Preoperative Diagnosis: Severe aortic valve stenosis, symptomatic
Postoperative Diagnosis: Same
Procedure(s) Performed: Right trans femoral TAVR with a 26mm + 1, Dodd TAVR valve
Date of Procedure: 03/24/24
Comorbidities:
1. Severe aortic stenosis, symptomatic
2. Underweight with a BMI of less than 20
3. NSVT
4. Nonischemic myocardial injury
5. 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
6. BPH
7. CAD
8. Hypertension
9. Hyperlipidemia
Cardiac Surgeon: Jovany Olmos MD, MS
Ground Wood Supervisor: Mohit Reardon MD
Anesthesia: Conscious Sedation and Local Analgesia
EBL: 100cc
Products: none
Implant: 26mm (+1) DODD sukhi TAVR valve, SN: [id number]
Indication(s) for Procedures: 88-year-old male with symptomatic severe aortic stenosis. CT-TAVR protocol revealed acceptable anatomy for TAVR access and implantation.
Start time: 1133hrs
Deployment time: 1203hrs
End time: 1213hrs
Radiation Dose (mGy): 170.96
DAP (cm2.Gy): 17.4498
Fluoroscopy time (minutes): 8.1
Contrast volume (ml): 85
TAVR gradient (mmHg): 2mmHg
Heparin Dose: 5000units
Protamine Dose: 20mg
Final Valve Positionin/10
Findings: Preoperative LVEF was 45% and was 45% following TAVR without inotropic support. Function was overall normal without regional wall motion abnormalities or dyskinesia. The aortic valve was well seated without detectable PVL and mean gradient
across the new valve was 2mmHg. following deployment of the valve, there was no additional pacing requirement and they returned to sinus while on the mine laborer table. There was successful placement of 26mm nominal + 1cc, TAVR valve without acute
complications. LVEDP pre-TAVR was found to be 24 however given his reduced left ventricular ejection fraction, we deemed him to have acute on chronic congestive heart failure with systolic diastolic dysfunction. Lasix will be given in the CVICU
Access:
1. Device -right common femoral artery, perclose x 2
2. Pigtail -left common femoral artery [+ 6Fr angioseal]
3. Transvenous Pacer -left common femoral vein
Description of Procedure: The patient was taken to the mine laborer. Their identity and procedure to be performed were verified and they were positioned supine on the mine laborer table. Induction via conscious sedation. The patient was then prepped and
draped from chin to thigh in a sterile fashion. A preoperative time-out was performed with all members of the team present. Arterial and venous access was performed using fluoroscopy and ultrasound guidance with micropuncture and Seldinger
technique. Two perclose devices were used on the device side followed by access to the aorta with a stiff wire to facilitate E-sheath placement. Heparin was given. A stiff straight wire and AL-1 catheter was used to cross the aortic valve. The stiff
wire was exchanged for an extra stiff coiled tip wire. The valve was prepped and mounted on to the device carrier. An ACT of >250 was achieved. We verified x 3 that the valve was mounted in the correct orientation with the skirt of the valve
directed toward the tip of the device carrier. We advanced the device into the descending thoracic aorta where the valve was them mounted onto the balloon under fluoroscopy. The device was flexed and advanced over the arch into the root and
positioned across the aortic valve. Contrast fluoroscopy was used to visualize the prosthesis across the valve and to guide positioning. A pigtail catheter in the RCC as used as a guide. We aimed to have the bottom of the device marker at the
annular hinge point. The device sheath was pulled back. We performed a quick pre-deployment time out. The pacer was turned on and had capture. Blood pressure fell accordingly, angiography was done to verify the intended final placement and the valve
was deployed with 5 seconds of rapid pacing to nominal volume. The balloon was deflated and the pacer was turned off. We had recovery of vitals. The device carrier was unflexed and positioned back in the descending thoracic aorta. A transthoracic
echocardiogram was performed. The device was removed from the E-Sheath maintaining wire access followed by removal of the E-sheath as we cinched down the perclose devices. There was acceptable hemostasis. The pigtail was withdrawn into the
descending/abdominal and completion aortogram with runoff run-off angiography was performed. There was no stenosis or dissection of bilateral iliofemoral systems. There was acceptable hemostasis of bilateral groins and manual pressure was held
following wire removal. Low dose protamine was administered after checking another ACT.
All instrument, sponge, and needle counts were confirmed to be correct x 2 at the end of the operation. The patient was transferred to the cardiac intensive care unit in stable condition.
I, Dr. Jovany Olmos, was present, scrubbed for, and performed all critical elements of this procedure.
Jovany Olmos MD
Cardiothoracic Surgeon
[facility]
This operative dictation was created using the [employer] dictation system. Please excuse any grammatical, typographical, or 'sound alike' errors
--- NOTE | 2024-03-24 12:32 | ITS.CL.TAVR ---
Sales Enablement Analyst - TAVR Report
TAVR PRocedure
Procedure Report:
TRANSCATHETER AORTIC VALVE REPLACEMENT REPORT
Date: 03/24/2024
Referring physician: Mohit Reardon D.O.
Preop diagnosis: Severe aortic valve stenosis, limited cardiac reserve.
Postop diagnosis: Severe aortic valve stenosis, acute on chronic heart failure with reduced ejection fraction.
Procedure: Transcatheter aortic valve replacement (TAVR) using a # 26 (+1 cc) Lake LIZZ S3 Ultra.
Operators: Mohit Reardon DO, Jovany Olmos M.D.
Findings: Severely calcified and stenotic aortic valve.
Anesthesia: Conscious sedation was provided by the anesthesia staff.
Estimated blood loss: Negligible.
Complications: None.
Condition: Stable
Procedure:
The patient was brought to the cardiac laborer wrecking and salvaging after consent and was prepped and draped in standard sterile fashion. Conscious sedation was provided by the anesthesia staff. After a 'Time Out,' bilateral common femoral arteries and the left
common vein were access using a modified Seldinger technique with a micropuncture kit under ultrasound guidance. A 6 Hungarian sheath was placed in the left femoral vein. Angiography performed through the micropuncture sheath confirmed satisfactory
arterial placement in the left common femoral artery. The micropuncture sheath was replaced with a 6Fr sheath in the left BUS AND TROLLEY DISPATCHER. Angiography through the micropuncture kit confirmed satisfactory arterial placement in the right common femoral artery.
The right BUS AND TROLLEY DISPATCHER was dilated with an 8FR dilator and preclosed with two Perc-Close devices. An 8Fr sheath was placed in the RCFA. A temporary pacing wire was advanced through the left femoral vein and into the right ventricle. The pacemaker
demonstrated good capture and was set to back up. A 5Fr pigtail catheter was advanced through the left femoral sheath and seated in the right coronary cusp. Angiography confirmed co-planar angles.
An AL-1 catheter was advanced through the 8Fr sheath, the J wire was exchanged for an Amplatz Superstiff wire and the catheter and the 8 Fr sheath was removed. The 14 Fr Lake E-sheath was inserted over the wire and into the descending aorta.
Heparin 5000 units was given. The LIZZ S3 was prepared on the back table. Orientation was confirmed by both physicians. The AL-1 catheter was re-advanced through the E-sheath to the level of the ascending aorta. The Superstiff wire was removed
and a soft tip straight wire was advanced through the AL-1. The straight tip wire was used to cross the aortic valve and the catheter was advanced into the left ventricle. The straight wire was removed and an Amplatz Extrastiff wire with curved
proximal end was advanced through the catheter and into the left ventricle. The wire was seated in the apex and the catheter was removed. ACT was checked and confirmed to be > 250 seconds.
The valve was advanced over the Extrastiff wire and into the descending aorta. The balloon was withdrawn and the valve was mounted on the balloon. The valve was advanced over the aortic arch and into the aortic valve annulus. The pusher device
was withdrawn to allow for balloon expansion. Low volume aortography confirmed good position of the valve. The valve was deployed during rapid ventricular pacing. Echocardiography and aortography confirmed a good result with moderate aortic valve
insufficiency due to wire bias and a 2 mmHg mean gradient. With removal of the wire, the aortic valve insufficiency resolved. The valve deployment system was removed. The Lake E sheath was then removed and hemostasis obtained with the two
Perc-Close sutures. Final angiography demonstrated no evidence of ileofemoral dissection/perforation and good runoff below the common femoral artery. The pacemaker and the pigtail catheter were removed. The left femoral artery sheath was removed
using a 6 Hungarian Angio-Seal. The left femoral venous sheath was removed and manual pressure was applied with excellent hemostasis.
Radiation
Dose (mGy): 170.96
DAP (cm2.Gy): 17.4498
Fluoroscopy time (minutes): 8.1
TAVR Echo Gradient (mmHg): 2
LV (s/x, mmHg): 141/24
TAVR Cath Gradient (mmHg): Not obtained
Conclusions:
1. Successful placement of # 26 (+1 cc) Lizz S3 Ultra aortic valve via right transfemoral approach with no acute complications.
2. Acute on chronic heart failure with elevated filling pressures (LVEDP = 24 at 58.5 kg).
Mohit Reardon DO, FACC, FACP
Copy to: Mohit Reardon D.O., Felicity Sandhu D.O.
[2024-03-24] MEDS: LEVOPHED 250 IV (12:42)
[2024-03-24] MEDS: LASIX 20 MG IV (13:14)
--- NOTE | 2024-03-24 13:48 | W.PN.UPDATE ---
Update Note
Progress Note Update
Reviewed patient with the heart team in the pretavr SDM and discussed a 26mm S3 +1cc via right transfemoral access. He will resume aspirin post TAVR. LVEDP 24mmHg. #26mm S3 (serial# [id number]) successfully deployed via right transfemoral access. Post
implant MG 2 mmHg.
--- NOTE | 2024-03-24 14:15 | PTCARENOTE ---
Rec'd report from Alejandra in the cathead operator; Rec'd pt a short time later drowsy but easily arousable, AAOx3. Pt w/no c/o CP or SOB. Pt w/VSS w/HR in the 50's & BP 103/60 upon arrival to the unit. Ptadvised of activity restrictions until 1630. Pt's bilat
groin dressing C/D/I w/no signs or symptoms of bleeding or hematoma. Pt oriented to room & call cruz within reach. Plan of care ongoing.
--- NOTE | 2024-03-24 16:13 | PTCARENOTE ---
Pt's HR dropping to high 30's-low 40's at rest. Pt woke easily to voice & appears asymptomatic w/no CP or SOB. BP stable. CT surgery PA notified & no new orders rec'd at this time.
[2024-03-24] MEDS: ANCEF 5 IV (17:57)
--- NOTE | 2024-03-24 20:29 | PTCARENOTE ---
assumed patient care at 7pm, pt seen and assessed in room. pt AOx3, pt. post TAVR. tele reading NSR with PVCs and PACs. Tele stripped confirmed by 12 lead EKG and placed in pt chart. Pt. has no complaints of pain at this time. B/L groin c/d/i. Stat
labs drawn and pacer pads placed per CT KE Rodriguez order. This RN discussed POC with patient, pt verbalizes understanding. Call cruz within reach. Continuing to monitor at this time.
[2024-03-24 20:34] LABS: Blood Urea Nitrogen 19 mg/dl (9-20); Calcium 9.3 mg/dl (8.4-10.2); Carbon Dioxide 25 mmol/L (22-30); Chloride 100 mmol/L (98-107); Estimated Creatinine Clearance 73 ml/min; Glucose 89 mg/dl (70-99); Magnesium 1.9 mg/dl (1.6-2.3); Potassium 4.1 mmol/L (3.5-5.1); Sodium 135 mmol/L (135-145); eGFR > 60.00
[2024-03-24] MEDS: TUMS CHEWABLE TABLET 200 MG PO (21:06)
[2024-03-24] MEDS: FLOMAX 0.4 MG PO (21:06)
[2024-03-24] MEDS: MAGNESIUM SULFATE 102 GRAMS IV (21:29)
[2024-03-25 02:34] VITALS: BP 114/67
[2024-03-25 03:34] LABS: Hematocrit 34.7 % (39.0-52.0); Mean Corp Hgb Conc. 34.6 g/dL (33.0-37.0); Mean Corpuscular Volume 95.3 fL (80.0-94.0); Platelet Count 94 10^3/uL (130-400); Red Blood Cell Count 3.64 10^6/uL (4.70-6.10); Red Cell Dist. Width 14.2 % (11.5-14.5)
[2024-03-25 04:11] LABS: Blood Urea Nitrogen 20 mg/dl (9-20); Calcium 9.4 mg/dl (8.4-10.2); Carbon Dioxide 23 mmol/L (22-30); Chloride 103 mmol/L (98-107); Estimated Creatinine Clearance 73 ml/min; Glucose 79 mg/dl (70-99); Potassium 4.3 mmol/L (3.5-5.1); Sodium 136 mmol/L (135-145); eGFR > 60.00
[2024-03-25 05:07] VITALS: BMI 18.9
--- NOTE | 2024-03-25 06:02 | W.PN.CT ---
Today's Communication / Plan
-
-pod #1
-no issues overnight
-diuresed with 20 iv Lasix on 03/24 (UO 500/2160)
-brief NSVT earlier post TAVR- K ok, repleted Mg
-difficult to see p-waves on tele, but likely nsr 80s overnight with frequent PACs, occasional PVCs. No fernando or pauses
-ECG: nsr, PACs, PVCs, known LBBB- no significant change
-follow plat - 94K today (121K preop)
-Echo today
-current meds (ASA, Lisinopril, Flomax)
-possible d/c
Assessment / Plan
-
- Symptomatic severe - s/p Right trans femoral TAVR with a 26mm + 1, Lake TAVR valve on 03/24/24
- Intraop TTE: LVEF was 45% pre and post TAVR without inotropic support, no regional wma or dyskinesia. The aortic valve was well seated without detectable PVL and mean gradient across the new valve was 2mmHg.
- Acute on chronic diastolic CHF. LVEDP 24 pre-TAVR. Diuresed with 20 iv Lasix post procedure
- CAD, s/p CABG - patent grafts (Farley-Lad, Svg-Diag, Svg-OM)
- Underweight with a BMI of less than 20
- NSVT
- Nonischemic myocardial injury
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
- Prostate CA
- Hypertension
- Hyperlipidemia
- Tobacco abuse
- Cholecystectomy 12/2023
- L hip replacement
- Spinal surgeries
- Pre-existing LBBB, PACs, PVCs
- Acute postop brief NSVT, asymptomatic- repleted Mg, K ok 4.1
Discussed patient care with: Nursing and Care Team
Subjective
-
Date of Service: March 25, 2024
Objective Data
-
PT 14.1 Sec (11.4-14.6) 03/15/24 12:51
INR 1.06 03/15/24 12:51
APTT 28.6 Sec (23.4-35.0) 03/15/24 12:51
Vital Signs
Vital Signs
Temp Pulse Resp BP Pulse Ox
98.4 F 86 20 136/69 99
03/24/24 23:01 03/24/24 23:15 03/24/24 23:01 03/24/24 22:36 03/24/24 23:01
CT Intake/Output/Weight
03/24/24 03/24/24 03/25/24
06:59 18:59 06:59
Intake Total 1880 / 2080 200 / 2080
Output Total 1660 / 1660
Balance 220 / 420 200 / 420
SaO2: 99
Physical Exam
-
General: Awake and AOx3
Cardiovascular: Regular rate & rhythm, No Murmurs and No Rub
Respiratory: Clear and Decreased Breath Sounds
Incision: Other (groins are cdi, soft, nontender, no hematoma b/l)
Extremities: No Edema (L DP 1+, R DP hard to feel)
Abdomen: soft, nontender nondistended, + bowel sounds
Data Reviewed
-
Lab Results: Results Reviewed
Medications: Active Meds Reviewed
Chest X-Ray: Report Reviewed and Image Reviewed
ECG: Report Reviewed and Image Reviewed
[2024-03-25 07:02] VITALS: BP 126/53
--- NOTE | 2024-03-25 08:19 | W.PN.UPDATE ---
Update Note
Progress Note Update
Called to see patient with complaint of left groin tenderness and edema. Left groin site swollen, no bleeding. Pressure applied and ultrasound of left groin ordered to rule out pseudoaneurysm. Hemoglobin stable Patient complains of back pain but
states not different from his usual chronic pain.
--- NOTE | 2024-03-25 08:23 | PTCARENOTE ---
Assumed care of pt from prev nsg shift; Pt AAOX3 w/no c/o CP or SOB. Pt's VSS w/HR in the 70's-80's this AM & BP 126/53. Pt's R groin w/dressing C/D/I, no signs of bleeding or hematoma. Pt's L groin w/dressing C/D/I, but area felt firm around the
site. Assisted pt OOB for the first time to the bathroom. Upon return from the bathroom pt requested to sit in chair. Recheck of L groin site showed swelling & increased firmness, dressing still C/D/I. Pt assisted back to bed & CT surgery PA's
notified immediately. Manual pressure applied to L groin area for approx. 10 mins before PA applied femstop to site. Pt sent for STAT U/S of groin. Plan of care ongoing.
--- NOTE | 2024-03-25 09:52 | W.PN.CD ---
Today's Communication / Plan
-
U/s for hematoma
will need home monitor
Impression / Plan
-
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
Severe s/p TAVR 26 mm
- left groin hematoma, u/s pending
- f/u echo pending
- will need rhythm monitor after d/c
ICMO HFrEF ~40% on yesterday's echo
- cont lisinopril GDMT limited by BP
CAD s/p CABG
- patent dowell to lad svg to diag and svg to om
- cont aspirin
HTN
- stable
HLD
LBBB with PVC
- rhythm monitor post TAVR
Subjective: feels OK no new complaints
Physical Exam
Vital Signs/Labs
Vital Signs
Temp Pulse Resp BP Pulse Ox
99.3 F 86 20 126/53 96
03/25/24 07:01 03/25/24 07:30 03/25/24 07:01 03/25/24 07:02 03/25/24 07:01
03/24/24 03/25/24 03/26/24
06:59 06:59 06:59
Actual Weight 130 lb 1.164 oz
03/25/24 02:48
03/25/24 02:48
PT 14.1 Sec (11.4-14.6) 03/15/24 12:51
INR 1.06 03/15/24 12:51
APTT 28.6 Sec (23.4-35.0) 03/15/24 12:51
Magnesium 1.9 mg/dl (1.6-2.3) 03/24/24 20:14
03/15/24
12:51
Aah-E-Tjshlutsxny Pept 3780
Physical Exam
Constitutional: No acute distress and Comfortable
EENT: Anicteric
Cardiovascular: Rhythm & rate is regular and Pedal edema is absent
Respiratory: Respiratory effort normal
GI: Soft
Neuro/Psych: AO x 3
Data Reviewed
-
Date of Service: March 25, 2024
Medical Decision Making: Reviewed Test Results
EKG: Tracing Personally Visualized and interpreted (sr pvc lbbb)
Echo: Tracing Personally Visualized and interpreted and Report Reviewed by me
Labs: Labs Reviewed by me
[2024-03-25] MEDS: TUMS CHEWABLE TABLET 200 MG PO (11:01)
[2024-03-25] MEDS: ZESTRIL 2.5 MG PO (11:01)
[2024-03-25] MEDS: ASPIR LOW (ENTERIC COATED) 81 MG PO (11:01)
[2024-03-25] MEDS: VITAMIN D3 (cholecalciferol) 25 MCG PO (11:01)
--- NOTE | 2024-03-25 11:05 | W.PN.ANS.POP ---
Anesthesia Post Operative
- Anesthesia Post Op Note
Vital Signs Stable-See Nursing Note: Yes
Airway Patent: Yes
Adequate Pain Control: Yes
Change in Mental Status: No
Current Postoperative Nausea & Vomiting: No
Anesthesia Complications: No
General Anesthetic Recall: No
Unplanned Admission: No
Post Op Hydration Adequate: Yes
--- NOTE | 2024-03-25 11:06 | CM ---
Chart reviewed. Patient lives at a apartment in [facility]isted [facility] at [facility]. Patient with a hematoma this am. Plan is for the patient to return to [facility] with CT Transitional RN. Patient told me his daughter and son in law will transport him back
to [facility]. CM to follow
[2024-03-25 11:09] VITALS: BP 105/56
--- NOTE | 2024-03-25 11:20 | PN.CDI ---
Addendum entered and electronically signed by Tommy Schmidt PA-C 03/25/24 12:12:
Pt with BMI on lowside. He is underweight with cachexia
Original Note:
CDI
- -
CDI:
Physician Documentation Request
Admit Date: 03/24/24 09:35
Dear Doctor/CVPA,
Please review the following and provide your response in the progress notes.
Clinical Indicators:
Height: 5 ft 9.5 in
Weight:130 lb
BMI:18.7
If possible, please provide an associated diagnosis related to the abnormal BMI, such as:
BMI < or = to 19
Underweight
Cachectic
- Other
Use of terms such as suspected, likely, concern for, or probable (associated with a specific diagnosis that is being evaluated, monitored, or treated as if it exists) are acceptable and can be coded in the inpatient setting, when documented at the
time of discharge.
Thank you,
Maryam Wilson RN
CDI Specialist
[facility] [facility]
Please use your independent medical judgment in providing your response.
[2024-03-25 13:24] LABS: Hematocrit 30.4 % (39.0-52.0); Hemoglobin 10.4 g/dL (13.0-18.0); Mean Corp Hgb Conc. 34.2 g/dL (33.0-37.0); Mean Corpuscular Hgb 32.3 pg (27.0-31.0); Mean Corpuscular Volume 94.4 fL (80.0-94.0); Platelet Count 84 10^3/uL (130-400); Red Blood Cell Count 3.22 10^6/uL (4.70-6.10); Red Cell Dist. Width 14.2 % (11.5-14.5); White Blood Cell Count 8.8 10^3/uL (4.8-10.8)
--- NOTE | 2024-03-25 14:45 | W.PN.UPDATE ---
Update Note
Progress Note Update
Rhythm star monitor requested by Dr. Wagner to be placed on patient at discharge. Reviewed with patient and nursing the monitor, how to turn on, charge, apply and return after the 14 days. Allowed for and answered questions. Monitor left at
bedside to be applied at the time of discharge.
[2024-03-25 15:28] VITALS: BP 111/46
--- NOTE | 2024-03-25 17:10 | PTCARENOTE ---
Pt assisted OOB to CH; L groin hematoma much improved from earlier in shift. No signs or symptoms of bleeding. Shortly after getting into chair pt had a 16 beat run of non-sustained VT. Pt assisted back to bed. CT surgery PA notified & order for
blood work rec'd, obtained, & sent.
[2024-03-25 17:43] LABS: Hematocrit 31.4 % (39.0-52.0); Hemoglobin 10.9 g/dL (13.0-18.0); Mean Corp Hgb Conc. 34.7 g/dL (33.0-37.0); Mean Corpuscular Hgb 33.3 pg (27.0-31.0); Mean Platelet Volume 11.9 fL (7.4-10.4); Platelet Count 85 10^3/uL (130-400); Red Blood Cell Count 3.27 10^6/uL (4.70-6.10); Red Cell Dist. Width 14.2 % (11.5-14.5); White Blood Cell Count 8.1 10^3/uL (4.8-10.8)
[2024-03-25 17:50] LABS: Blood Urea Nitrogen 23 mg/dl (9-20); Calcium 9.6 mg/dl (8.4-10.2); Carbon Dioxide 25 mmol/L (22-30); Chloride 102 mmol/L (98-107); Estimated Creatinine Clearance 63 ml/min; Glucose 114 mg/dl (70-99); Magnesium 1.9 mg/dl (1.6-2.3); Potassium 4.2 mmol/L (3.5-5.1); Sodium 135 mmol/L (135-145); eGFR > 60.00
[2024-03-25 19:36] VITALS: BP 109/55
[2024-03-25] MEDS: TUMS CHEWABLE TABLET PO (19:41)
[2024-03-25] MEDS: MAGNESIUM SULFATE 102 GRAMS IV (19:42)
[2024-03-25 22:19] VITALS: BP 102/58
[2024-03-25] MEDS: FLOMAX 0.4 MG PO (22:20)
--- NOTE | 2024-03-25 23:01 | PTCARENOTE ---
Received patient at change of shift. SR on the monitor, HR in the 70s. R groin CDI. L groin IT BUSINESS SYSTEMS ANALYST, intact and ecchymotic. No complaints from pt at this time, call cruz within reach.
[2024-03-26] VITALS (10 sets, daily range): BP systolic 98–115; BP diastolic 49–79; PULSE 74–75; BMI 18.1
[2024-03-26 03:52] LABS: Hematocrit 27.6 % (39.0-52.0); Hemoglobin 9.5 g/dL (13.0-18.0); Mean Corp Hgb Conc. 34.4 g/dL (33.0-37.0); Mean Corpuscular Hgb 33.1 pg (27.0-31.0); Mean Corpuscular Volume 96.2 fL (80.0-94.0); Platelet Count 85 10^3/uL (130-400); Red Blood Cell Count 2.87 10^6/uL (4.70-6.10); Red Cell Dist. Width 13.9 % (11.5-14.5)
[2024-03-26 04:18] LABS: Blood Urea Nitrogen 22 mg/dl (9-20); Calcium 9.3 mg/dl (8.4-10.2); Carbon Dioxide 24 mmol/L (22-30); Chloride 102 mmol/L (98-107); Estimated Creatinine Clearance 74 ml/min; Glucose 85 mg/dl (70-99); Sodium 134 mmol/L (135-145); eGFR > 60.00
--- NOTE | 2024-03-26 05:22 | W.PN.CT ---
Today's Communication / Plan
-
Plan:
-No major issues overnight. Hemodynamically and neurologically intact
-Left groin hematoma, no pseudoaneurysm per u/s 03/25. Unable to palpate Left DP pulse but dopplerable
-Noted to have scrotal edema/hematoma, denies tenderness to palpation
-Repeat echo yesterday 03/25 showed a well seated TAVR, with PG/MG of 8/4 mmHg, Trace AI, EF 25-30%
-Platelets 85K today, same as yesterday. Currently on ASA
-H/H 9.5/27.6, was 10.9/31.4 yesterday, will repeat @ 8 AM
-Cont. current meds (ASA, Lisinopril, Flomax)
-No major rhythm issues overnight. Currently in NSR @ 74 bpm
-Will assess pt's groin/scrotum when OOB
-Possible d/c home later today with [employer] heart monitor
Assessment / Plan
-
- Symptomatic severe - s/p Right trans femoral TAVR with a 26mm + 1, Lake TAVR valve on 03/24/24, pod#2
- Intraop TTE: LVEF was 45% pre and post TAVR without inotropic support, no regional wma or dyskinesia. The aortic valve was well seated without detectable PVL and mean gradient across the new valve was 2mmHg.
- Acute on chronic diastolic CHF. LVEDP 24 pre-TAVR. Diuresed with 20 iv Lasix post procedure
- CAD, s/p CABG - patent grafts (Farley-Lad, Svg-Diag, Svg-OM)
- Underweight with a BMI of less than 20
- NSVT
- Nonischemic myocardial injury
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
- Prostate CA
- Hypertension
- Hyperlipidemia
- Tobacco abuse
- Cholecystectomy 12/2023
- L hip replacement
- Spinal surgeries
- Pre-existing LBBB, PACs, PVCs
- Acute postop brief NSVT, asymptomatic- repleted Mg, K ok 4.1
- Acute postop left groin hematoma, no pseudoaneurysm per u/s 03/25
- Acute postop scrotal edema/hematoma
- Acute postop hyponatremia, 134
- Acute postop thrombocytopenia
- Acute postop blood loss/anemia
Discussed patient care with: Cardiology, Nursing, Respiratory Therapy, Pharmacy and Care Team
Subjective
Procedure
s/p Right trans femoral TAVR with a 26mm + 1, Lake TAVR valve on 03/24/24
-
Date of Service: March 26, 2024
Pt c/o mild tenderness @ left groin area. Wants to go home
Objective Data
-
Lab Results
03/26/24 02:16
03/26/24 02:16
PT 14.1 Sec (11.4-14.6) 03/15/24 12:51
INR 1.06 03/15/24 12:51
APTT 28.6 Sec (23.4-35.0) 03/15/24 12:51
Vital Signs
Vital Signs
Temp Pulse Resp BP Pulse Ox
97.9 F 83 18 115/49 97
03/26/24 02:22 03/26/24 02:15 03/26/24 02:22 03/26/24 02:06 03/26/24 02:22
CT Intake/Output/Weight
03/25/24 03/25/24 03/26/24
06:59 18:59 06:59
Intake Total 200 / 2080 480 / 480
Output Total 500 / 2160 400 / 550 150 / 550
Balance -300 / -80 80 / -70 -150 / -70
SaO2: 97 (RA)
Physical Exam
-
General: Awake, Oriented and AOx3
Cardiovascular: Regular rate & rhythm and No Murmurs
Respiratory: Clear
Incision: Clean, Dry, Intact, Dressing Intact and Other (left groin hematoma, no pseudoaneurysm per u/s)
Extremities: Other (left foot warm, DP not palpable but dopplerable)
Data Reviewed
-
Lab Results: Results Reviewed
Medications: Active Meds Reviewed
Chest X-Ray: Report Reviewed and Image Reviewed
ECG: Report Reviewed and Image Reviewed
[2024-03-26] MEDS: LASIX 40 MG PO (08:28)
[2024-03-26] MEDS: ASPIR LOW (ENTERIC COATED) 81 MG PO (08:28)
[2024-03-26] MEDS: VITAMIN D3 (cholecalciferol) 25 MCG PO (08:28)
[2024-03-26] MEDS: TUMS CHEWABLE TABLET 200 MG PO (08:28)
[2024-03-26] MEDS: KCL 20 MEQ PO (08:28)
[2024-03-26] MEDS: ZESTRIL 2.5 MG PO (08:28)
[2024-03-26] MEDS: FLUSH (NSS) 1 FLUSH IV (08:29)
[2024-03-26 08:53] LABS: Hematocrit 27.8 % (39.0-52.0); Hemoglobin 9.4 g/dL (13.0-18.0); Mean Corp Hgb Conc. 33.8 g/dL (33.0-37.0); Mean Corpuscular Hgb 32.3 pg (27.0-31.0); Mean Corpuscular Volume 95.5 fL (80.0-94.0); Mean Platelet Volume 12.5 fL (7.4-10.4); Platelet Count 76 10^3/uL (130-400); Red Blood Cell Count 2.91 10^6/uL (4.70-6.10); Red Cell Dist. Width 14.1 % (11.5-14.5); White Blood Cell Count 6.7 10^3/uL (4.8-10.8)
--- NOTE | 2024-03-26 10:17 | PTCARENOTE ---
Received patient this morning resting in bed, denies any pain or discomfort only with palpation of left groin which is tender. Very ecchymotic in the scrotal area, repeat CBC done as ordered which is unchanged.
[2024-03-26] MEDS: FEOSOL 325 MG PO (12:16)
[2024-03-26] MEDS: VITAMIN C 250 MG PO (12:16)
--- NOTE | 2024-03-26 13:39 | W.PN.CD ---
Addendum entered and electronically signed by Jessica Garrett MD 03/26/24 18:50:
I saw and examined the patient.
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
Comment: He is feeling well. His left goirin hematoma is soft, slightly tender. rrr, lungs cta. Hgb stable.
Ok for discharge home from cardiac perspective
Original Note:
Today's Communication / Plan
-
Ambulate
Monitor L groin
plan was for monitor at d/c
Impression / Plan
-
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
Severe s/p TAVR 26 mm
- left groin hematoma,no pseudoaneurysm
- Echo 03/25/24 EF 20-25, TAVR P/M 8/4mmhg
- plan was for monitor at d/c
ICMO HFrEF ~40% on yesterday's echo
- GDMT limited by BP
CAD s/p CABG
- patent dowell to lad svg to diag and svg to om
- cont aspirin
HTN
- stable
HLD
LBBB with PVC
- rhythm monitor post TAVR
Subjective: Denies CP, SOB. Some tenderness L groin but feeling better
Physical Exam
Vital Signs/Labs
Vital Signs
Temp Pulse Resp BP Pulse Ox
98.1 F 82 16 98/79 98
03/26/24 12:19 03/26/24 12:30 03/26/24 12:19 03/26/24 12:19 03/26/24 12:19
03/25/24 03/26/24 03/27/24
06:59 06:59 06:59
Actual Weight 59 kg 56.5 kg
03/26/24 08:25
03/26/24 02:16
PT 14.1 Sec (11.4-14.6) 03/15/24 12:51
INR 1.06 03/15/24 12:51
APTT 28.6 Sec (23.4-35.0) 03/15/24 12:51
Magnesium 2.0 mg/dl (1.6-2.3) 03/26/24 02:16
03/15/24
12:51
Ujk-H-Mslspxywjck Pept 3780
Physical Exam
Constitutional: No acute distress
Cardiovascular: Rhythm & rate is regular and Pedal edema is absent
Respiratory: Respiratory effort normal and Lungs clear to auscul.
Neuro/Psych: AO x 3
Other: Cath Site (L groin hematoma, mild ecchymosis)
Data Reviewed
-
Date of Service: March 26, 2024
EKG: Tracing Personally Visualized and interpreted (NSR LBBB 87 bpm. )
--- NOTE | 2024-03-26 14:56 | CM ---
PT eval pt and recomm walker. pts daughter is avail to drive him home tomorrow. he is agreeable to a f/u visit from the ct transitional care nurse after dc. Asmita Grove RN and Jigna Rodriguez SAW SETTER updated.
[2024-03-26] MEDS: TUMS CHEWABLE TABLET PO (20:13)
--- NOTE | 2024-03-26 21:47 | PTCARENOTE ---
received patient at the change of shift. AAOx3. [place]. denies any pain. denies any sob/cp. SR with a BBB on tele-70s. bp stable. urinating yellow urine in the BSU. 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 L groin site-mild ecchymosis/tender to touch/soft. palpable
pulses. reviewed plan of care with patient and verbalized understanding. patient eager to go home. call cruz within reach. makes needs known.
[2024-03-26] MEDS: FLOMAX 0.4 MG PO (22:36)
[2024-03-27] VITALS (23 sets, daily range): BP systolic 104–126; BP diastolic 55–77; BMI 18.0
[2024-03-27 05:25] LABS: Hematocrit 25.8 % (39.0-52.0); Hemoglobin 8.9 g/dL (13.0-18.0); Mean Corp Hgb Conc. 34.5 g/dL (33.0-37.0); Mean Corpuscular Hgb 33.5 pg (27.0-31.0); Mean Platelet Volume 12.8 fL (7.4-10.4); Platelet Count 67 10^3/uL (130-400); Red Blood Cell Count 2.66 10^6/uL (4.70-6.10); Red Cell Dist. Width 13.8 % (11.5-14.5); White Blood Cell Count 5.9 10^3/uL (4.8-10.8)
--- NOTE | 2024-03-27 05:30 | W.PN.CT ---
Today's Communication / Plan
-
Plan:
-No major issues overnight. Hemodynamically and neurologically intact
-Left groin hematoma, no pseudoaneurysm per u/s 03/25. Unable to palpate Left DP pulse but dopplerable
-Left groin hematoma looks significant and likely will warrant repeat U/S to R/O pseudoaneurysm prior to D/C home
-H/H 8.9/25.8 down from 9.4/27.8 yesterday. May need to transfuse before d/c
-Noted to have scrotal edema/hematoma, denies tenderness to palpation
-Repeat echo 03/25 showed a well seated TAVR, with PG/MG of 8/4 mmHg, Trace AI, EF 25-30%
-Platelets 67K, down from 85K today, same as yesterday. Currently on ASA, may need to hold today
-Cont. current meds (ASA-may need to hold today, Lisinopril, Flomax)
-No major rhythm issues overnight. Currently in NSR @ 68 bpm
-Will assess pt's groin/scrotum when OOB
-D/C home likely tomorrow with RhythmStar heart monitor
Assessment / Plan
-
- Symptomatic severe - s/p Right trans femoral TAVR with a 26mm + 1, Lake TAVR valve on 03/24/24, pod#3
- Intraop TTE: LVEF was 45% pre and post TAVR without inotropic support, no regional wma or dyskinesia. The aortic valve was well seated without detectable PVL and mean gradient across the new valve was 2mmHg.
- Acute on chronic diastolic CHF. LVEDP 24 pre-TAVR. Diuresed with 20 iv Lasix post procedure
- CAD, s/p CABG - patent grafts (Farley-Lad, Svg-Diag, Svg-OM)
- Underweight with a BMI of less than 20
- NSVT
- Nonischemic myocardial injury
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
- Prostate CA
- Hypertension
- Hyperlipidemia
- Tobacco abuse
- Cholecystectomy 12/2023
- L hip replacement
- Spinal surgeries
- Pre-existing LBBB, PACs, PVCs
- Acute postop brief NSVT, asymptomatic- repleted Mg, K ok 4.1
- Acute postop left groin hematoma, no pseudoaneurysm per u/s 03/25
- Acute postop scrotal edema/hematoma
- Acute postop hyponatremia, 134
- Acute postop thrombocytopenia
- Acute postop blood loss/anemia
Discussed patient care with: Cardiology, Nursing and Care Team
Subjective
Procedure
s/p Right trans femoral TAVR with a 26mm + 1, Lake TAVR valve on 03/24/24
-
Date of Service: March 27, 2024
Pt c/o mild tenderness @ left groin hematoma, denies scrotal edema pain. Wants to go home
Objective Data
-
Lab Results
03/27/24 04:46
PT 14.1 Sec (11.4-14.6) 03/15/24 12:51
INR 1.06 03/15/24 12:51
APTT 28.6 Sec (23.4-35.0) 03/15/24 12:51
Vital Signs
Vital Signs
Temp Pulse Resp BP Pulse Ox
98 F 68 18 104/66 96
03/27/24 04:40 03/27/24 05:15 03/27/24 04:40 03/27/24 04:40 03/27/24 04:40
CT Intake/Output/Weight
03/26/24 03/26/24 03/27/24
06:59 18:59 06:59
Intake Total 240 / 490 250 / 490
Output Total 150 / 550 400 / 625 225 / 625
Balance -150 / -70 -160 / -135 25 / -135
SaO2: 96 (RA)
Physical Exam
-
General: Awake, Oriented and AOx3
Cardiovascular: Regular rate & rhythm, No Murmurs and No Rub
Respiratory: Decreased Breath Sounds ( )
Sternum: Stable
Incision: Clean, Dry, Intact and Dressing Intact
Data Reviewed
-
Lab Results: Results Reviewed
Medications: Active Meds Reviewed
Chest X-Ray: Report Reviewed and Image Reviewed
ECG: Report Reviewed and Image Reviewed
[2024-03-27 05:36] LABS: Blood Urea Nitrogen 22 mg/dl (9-20); Calcium 9.3 mg/dl (8.4-10.2); Carbon Dioxide 25 mmol/L (22-30); Chloride 104 mmol/L (98-107); Estimated Creatinine Clearance 70 ml/min; Glucose 86 mg/dl (70-99); Magnesium 1.8 mg/dl (1.6-2.3); Potassium 4.1 mmol/L (3.5-5.1); Sodium 135 mmol/L (135-145); eGFR > 60.00
[2024-03-27] MEDS: MAGNESIUM SULFATE 102 GRAMS IV (06:13)
--- NOTE | 2024-03-27 06:19 | PTCARENOTE ---
updated Ed Cameron CV PA on patients AM labs. IV mag ordered and started, see mar. L groin site unchanged. patient states 'not as tender.' palpable pulses. SR on tele overnight with [id number].
[2024-03-27] MEDS: DDAVP 54 MCG IV (08:28)
[2024-03-27] MEDS: ASPIR LOW (ENTERIC COATED) PO (08:29)
[2024-03-27] MEDS: FEOSOL 325 MG PO (08:29)
[2024-03-27] MEDS: TUMS CHEWABLE TABLET 200 MG PO (08:29)
[2024-03-27] MEDS: FLUSH (NSS) 1 FLUSH IV (08:29)
[2024-03-27] MEDS: VITAMIN C 250 MG PO (08:30)
[2024-03-27] MEDS: VITAMIN D3 (cholecalciferol) 25 MCG PO (08:30)
[2024-03-27] MEDS: ZESTRIL 2.5 MG PO (08:30)
[2024-03-27] MEDS: TYLENOL 650 MG PO (08:41)
--- NOTE | 2024-03-27 11:22 | PTCARENOTE ---
Patient's daughter Ladonna and chfezbag-t-oag Leida telephoned and updated. Patient given IV dose of desmopressin as ordered, baby asa held as ordered. Fem stop placed on the left groin by Dr. Olmos and patient now sent for CT of the abdomen/pelvis.
[2024-03-27 14:08] LABS: Hemoglobin 8.6 g/dL (13.0-18.0); Mean Corp Hgb Conc. 34.4 g/dL (33.0-37.0); Mean Corpuscular Hgb 33.2 pg (27.0-31.0); Mean Corpuscular Volume 96.5 fL (80.0-94.0); Platelet Count 64 10^3/uL (130-400); Red Blood Cell Count 2.59 10^6/uL (4.70-6.10); White Blood Cell Count 5.4 10^3/uL (4.8-10.8)
[2024-03-27] MEDS: LASIX 40 MG IV (14:26)
[2024-03-27 15:20] LABS: APTT 31.4 Sec (23.4-35.0); INR 1.16; PT 15.1 Sec (11.4-14.6)
[2024-03-27 15:21] LABS: Fibrinogen 375 MG/DL (199-459)
--- NOTE | 2024-03-27 16:06 | PTCARENOTE ---
Patient received 1 unit platelets as ordered, HIT panel and coags sent to the lab prior. Patient now received 1 unit PRBC's. Fem stop in place left groin, area remains ecchymotic but soft to touch with palpable right pedal pulse. Patient is
diuresing well after receiving PM dose of IV lasix.
--- NOTE | 2024-03-27 19:07 | PTCARENOTE ---
Blood transfused without incident.
[2024-03-27] MEDS: TUMS CHEWABLE TABLET PO (19:48)
[2024-03-27 20:29] LABS: Hematocrit 28.3 % (39.0-52.0); Hemoglobin 9.8 g/dL (13.0-18.0); Mean Corp Hgb Conc. 34.6 g/dL (33.0-37.0); Mean Corpuscular Hgb 32.8 pg (27.0-31.0); Mean Corpuscular Volume 94.6 fL (80.0-94.0); Platelet Count 77 10^3/uL (130-400); Red Blood Cell Count 2.99 10^6/uL (4.70-6.10); Red Cell Dist. Width 14.4 % (11.5-14.5); White Blood Cell Count 7.1 10^3/uL (4.8-10.8)
[2024-03-27] MEDS: KCL 20 MEQ PO (21:20)
[2024-03-27] MEDS: LASIX 20 MG IV (21:20)
--- NOTE | 2024-03-27 21:39 | PTCARENOTE ---
received patient at the change of shift. AAOx3. denies any pain. complains of tenderness on palpation to the left groin. fem stop in placed-light pressure per order. L groin ecchymotic, mild swelling noted-no change from previous shift. 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 + palpable pulses. doppler on the L DP. Ed Cameron CV PA at the bedside. reviewed plan with PA and patient. IV lasix and PO K given, see mar. patients scrotum and penis ecchymotic. edges marked. when checked, ecchymosis increased on
penis. marked edges again and updated Ed Cameron. no swelling noted. patient denies any pain. will hold off on condom cath. patient okay with using urinal overnight.
[2024-03-27] MEDS: FLOMAX 0.4 MG PO (23:10)
[2024-03-28 04:43] VITALS: BP 116/59
[2024-03-28 04:46] VITALS: BP 116/59
--- NOTE | 2024-03-28 05:00 | W.PN.CT ---
Today's Communication / Plan
-
Plan:
-No major issues overnight. Hemodynamically and neurologically intact
-Left groin hematoma, no pseudoaneurysm per u/s 03/[address] Abdomen/Pelvis yesterday 03/27
-Left groin hematoma looks better, had FemStop applied yesterday until this AM. Now able to palpate DP pulse, 2+, couldn't palpate yesterday
-Pt received DDAVP, 1u PRBC and 1 {5pk} plts yesterday 03/27
-H/H 8.9/25.8 -> 9.8/28.3 -> 12/07 this AM
-Platelets 85K-> 67K -> 77K -> 78K, ASA currently on hold, HIT panel pending
-Will cont. diuresis, hyponatremic @ 134. 24hrs u/o 5 mL
-Will replete K, 3.8
-Noted to have scrotal edema/hematoma with ecchymosis extending to the glans penis, denies tenderness to palpation
-Repeat echo 03/25 showed a well seated TAVR, with PG/MG of 8/4 mmHg, Trace AI, EF 25-30%
-Cont. current meds (ASA-on hold since 03/27, Lisinopril, Flomax, Lasix)
-No major rhythm issues overnight. Currently in NSR @ 68 bpm
-Will assess pt's groin/scrotum when OOB
-Possible d/c home later today with RhythmStar heart monitor
Assessment / Plan
-
- Symptomatic severe - s/p Right trans femoral TAVR with a 26mm + 1, Lake TAVR valve on 03/24/24, pod#4
- Intraop TTE: LVEF was 45% pre and post TAVR without inotropic support, no regional wma or dyskinesia. The aortic valve was well seated without detectable PVL and mean gradient across the new valve was 2mmHg.
- Acute on chronic diastolic CHF. LVEDP 24 pre-TAVR. Diuresed with 20 iv Lasix post procedure
- CAD, s/p CABG - patent grafts (Farley-Lad, Svg-Diag, Svg-OM)
- Underweight with a BMI of less than 20
- NSVT
- Nonischemic myocardial injury
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
- Prostate CA
- Hypertension
- Hyperlipidemia
- Tobacco abuse
- Cholecystectomy 12/2023
- L hip replacement
- Spinal surgeries
- Pre-existing LBBB, PACs, PVCs
- Acute postop brief NSVT, asymptomatic- repleted Mg, K ok 4.1
- Acute postop left groin hematoma, no pseudoaneurysm per u/s 03/25
- Acute postop scrotal edema/hematoma
- Acute postop hyponatremia, 134
- Acute postop thrombocytopenia
- Acute postop blood loss/anemia
Discussed patient care with: Cardiology, Nursing, Pharmacy and Care Team
Subjective
Procedure
s/p Right trans femoral TAVR with a 26mm + 1, Lake TAVR valve on 03/24/24
-
Date of Service: March 28, 2024
Pt c/o mild tenderness at left groin, otherwise feels well. Wants to go home
Objective Data
-
PT 15.1 Sec (11.4-14.6) H 03/27/24 15:01
INR 1.16 03/27/24 15:01
APTT 31.4 Sec (23.4-35.0) 03/27/24 15:01
Vital Signs
Vital Signs
Temp Pulse Resp BP Pulse Ox
98.3 F 70 16 116/59 96
03/28/24 04:46 03/28/24 04:46 03/28/24 04:46 03/28/24 04:46 03/28/24 04:46
CT Intake/Output/Weight
03/27/24 03/27/24 03/28/24
06:59 18:59 06:59
Intake Total 250 / 490 1370 / 1620 250 / 1620
Output Total 225 / 625 950 / 1675 725 / 1675
Balance 25 / -135 420 / -55 -475 / -55
SaO2: 96 (RA)
Physical Exam
-
General: Awake, Oriented and AOx3
Cardiovascular: Regular rate & rhythm, No Murmurs, No Rub and No Gallop
Respiratory: Clear
Incision: Clean, Dry, Intact and Dressing Intact
Extremities: No Edema
Data Reviewed
-
Lab Results: Results Reviewed
Medications: Active Meds Reviewed
Chest X-Ray: Report Reviewed and Image Reviewed
CT Scan: Report Reviewed and Image Reviewed
ECG: Report Reviewed and Image Reviewed
[2024-03-28] MEDS: TYLENOL 650 MG PO ×2 (05:02→10:18)
[2024-03-28 05:15] LABS: Mean Corp Hgb Conc. 34.5 g/dL (33.0-37.0); Mean Corpuscular Hgb 32.7 pg (27.0-31.0); Mean Corpuscular Volume 94.8 fL (80.0-94.0); Mean Platelet Volume 11.4 fL (7.4-10.4); Platelet Count 78 10^3/uL (130-400); Red Blood Cell Count 3.06 10^6/uL (4.70-6.10); Red Cell Dist. Width 14.1 % (11.5-14.5); White Blood Cell Count 5.9 10^3/uL (4.8-10.8)
[2024-03-28 05:35] LABS: Blood Urea Nitrogen 19 mg/dl (9-20); Calcium 9.3 mg/dl (8.4-10.2); Carbon Dioxide 28 mmol/L (22-30); Chloride 99 mmol/L (98-107); Estimated Creatinine Clearance 70 ml/min; Glucose 87 mg/dl (70-99); Magnesium 1.7 mg/dl (1.6-2.3); Potassium 3.8 mmol/L (3.5-5.1); Sodium 134 mmol/L (135-145); eGFR > 60.00
[2024-03-28 06:34] VITALS: BP 99/63
[2024-03-28] MEDS: LASIX 40 MG IV (06:34)
[2024-03-28] MEDS: MAGNESIUM OXIDE 500 MG PO (06:34)
[2024-03-28] MEDS: KCL 40 MEQ PO ×2 (06:34→10:17)
[2024-03-28 06:35] VITALS: BP 108/53
--- NOTE | 2024-03-28 06:40 | PTCARENOTE ---
fem stop removed per Ed Cameron CV PA. groin stable-no change. penis/scrotum ecchymotic. palpable pulses.
[2024-03-28 08:26] VITALS: BMI 17.7
[2024-03-28] MEDS: ZESTRIL 2.5 MG PO (08:28)
[2024-03-28] MEDS: TUMS CHEWABLE TABLET 200 MG PO (08:28)
[2024-03-28] MEDS: FLUSH (NSS) 2 FLUSH IV (08:28)
[2024-03-28] MEDS: VITAMIN C 250 MG PO (08:28)
[2024-03-28] MEDS: VITAMIN D3 (cholecalciferol) 25 MCG PO (08:28)
[2024-03-28] MEDS: FEOSOL 325 MG PO (08:28)
--- NOTE | 2024-03-28 09:02 | W.DCSUMMARY ---
Discharge Summary
Discharge Data
Date of Admission: 03/24/24
Date of Discharge: 03/28/24
Total time spent discharging patient (in min): 40
-
Pending Results: No
Hospital Course
Primary care physician:
Dr. Felicity Sandhu
Outpatient dental floss packer:
Dr. Mohit Reardon
Inpatient consultants:
CBC
Procedures:
1. Right TF TAVR #26mm S3
Primary Diagnosis:
1. Severe aortic stenosis
Secondary Diagnoses:
1. Hypertension
2. Acute postop brief NSVT, asymptomatic
3. Acute postop left groin hematoma, no pseudoaneurysm per u/s 03/25
4. Acute postop scrotal edema/hematoma
5. Acute postop hyponatremia, 134
6. Acute postop thrombocytopenia with transfusion
7. Acute postop blood loss/anemia with transfusion
8. Coronary artery disease
HPI: 88 y/o male presented electively on 03/24 for a transfemoral TAVR with Dr. Olmos.
Hospital course: 88 y/o male presented on 03/24 for a transfemoral TAVR. Postoperatively his EKG was unchanged with a left bundle branch block. He was temporarily on Levophed for blood pressure control and he was given IV Lasix 20 mg for an
elevated LVEDP. He had a short episode of nonsustained VT and electrolytes were repleted. On 03/25 postoperative day 1 left groin was noted to have edema/tenderness. Ultrasound showed no pseudoaneurysm however it did show a 5.6 cm hematoma.
Manual pressure was applied and repeat hemoglobin was 10.4 from 12. Postoperative echocardiogram showed that the TAVR valve was well seated with a peak/mean gradient of 8/4 mmHg and ejection fraction was 25-30% with global hypokinesis. On 03/26
postoperative day 2, hemoglobin continued to drop to 9.5. IV Lasix was given and groins felt stable. He was not discharged due to further observation. On 03/27 postoperative day 3 patient's hemoglobin and platelet count continued to drop. He was
given DDAVP and Lasix. Repeat hemoglobin showed a slow downtrend compared to the morning and he was given 1 unit of packed red blood cells and 1 pool of platelets. Aspirin was placed on hold. A CTA abdomen and pelvis was performed which showed a
hematoma. FemoStop was reapplied And he was redosed with IV Lasix in the evening. On 03/28 postoperative day 4 patient's hemoglobin remained stable after transfusion. Aspirin will remain on hold until platelets are greater than 100. He was
deemed stable for discharge home with repeat blood work on Thursday. This was communicated to our transitional nurses that we will follow-up.
Home medication changes:
See below
Discharge Plan
-
Patient Disposition: Home (Routine Discharge)
Discharge Diagnosis/Procedures: Aortic stenosis TF TAVR
Condition: Good
Diet: Low Fat, Low Cholesterol and 2 Gram Sodium
Activity: As tolerated
Driving Restrictions: No driving for 1 week
Bathing Restrictions: OK to Shower
Blood Work: CBC/BMP/mg on thursday
Others Tests: Your 30-day echocardiogram is scheduled for: 04/21/2024 @ 10:20 at the [facility] and [facility].
Other Services: Cardiac Rehab
Specialty Instructions: Weigh Daily- Call MD for wt gain/loss 3 lbs overnight/5 lbs in 1 week
Activity Restrictions/Additional Instructions:
ACTIVITY:
-continue to use stairs as tolerated
WOUND CARE:
-Shower daily. Use soap & water.
-No lotions, creams or powders on incision area.
DIET:
-continue a low fat/low cholesterol diet.
-IF you are diabetic, continue carb controlled diet.
CARDIAC REHAB:
-Please make appointment to start in 5-6 weeks with your local hospital program. (See Cardiac Rehabilitation Discharge Booklet).
SPECIALTY INSTRUCTIONS:
-Weigh yourself daily. Call your physician for any weight gain/loss of 3 lbs overnight or 5 lbs in one week.
-REPORT any clicking noise or uneven appearance of your sternum to your surgeon immediately.
-If you smoke, you are instructed to quit. The [place] smoking hotline phone number is [phone]
Stand Alone Forms: DC Inst - TransFemoral (TAVR)
Referrals:
[facility]isted [facility] [Other]
CT Transitional Care Nurse [Outside] (The Cardiothoracic Transitional Care Nurse will call you to set up a visit in 1-2 days.)
Felicity Sandhu, [Family Provider] -
Vivi Nicole CRNP [Specified Professional Personl] - 04/27/24 9:20 am
Additional Discharge Medication Instructions: Do not restart platelets until they are >100
Prescriptions:
New
acetaminophen 325 mg Tablet
650 mg PO Q4HPRN PRN (Reason: AGRAWAL, mild pain, or fever >101F) Qty: 1 0RF
furosemide [Lasix] 20 mg tablet
20 mg PO DAILY Qty: 5 0RF
potassium chloride 10 mEq tablet extended release
10 meq PO DAILY Qty: 5 0RF
Continued
tamsulosin 0.4 mg capsule
0.4 mg PO HS Qty: 0 0RF
lisinopril 2.5 mg tablet
2.5 mg PO DAILY Qty: 0 0RF
cyanocobalamin (vitamin B-12) 1,000 mcg Tablet
1,000 mcg PO DAILY Qty: 0 0RF
cholecalciferol (vitamin D3) 25 mcg (1,000 unit) Tablet
25 mcg PO DAILY Qty: 0 0RF
calcium carbonate 260 mg calcium (650 mg) Tablet,Chewable
260 mg PO BID Qty: 0 0RF
PreserVision AREDS-2 250-90-40-1 mg Capsule
1 tab PO BID Qty: 0 0RF
Held
aspirin 81 mg Tablet,Delayed Release (Dr/Ec)
81 mg PO DAILY
Hold Instructions: Resume on 04/04/24. Do not restart ASA until platelets are >100
Discharge Orders:
Discharge Patient (As Directed); Ordered 03/28/24
Ordered By: Geovanna Rodriguez
Care Plan Goals
Care Plan Goals:
Problem: Readiness for enhanced knowledge related to diagnosis and treatment plan
Goal: Understand your diagnosis and treatment plan needs, including medications if applicable.
Instructions: Know your diagnosis, underlying causes and treatment plan options, including medications if applicable. Consult with your health care team to learn about your diagnosis and treatment plan, including medications if applicable.
Discharge Date and Time
Print Language: GREEK
--- NOTE | 2024-03-28 10:49 | PTCARENOTE ---
Received patient this morning resting in bed. Left groin flat, ecchymotic groin, penis and scrotum but improved since yesterday. Patient seen by CT surgery and planning for d/c today. Assisted the patient oob to the chair which he tolerated other
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 When weighing the patient noted to have ecchymosis and some firmness left flank area, notified Ashok Rodriguez NP. VSS, lab work improved, patient for discharge home today. Telephoned the patient's
FLEX Casarez who will drive the patient home today.
[2024-03-28 11:53] VITALS: BP 109/81
--- NOTE | 2024-03-28 12:01 | W.PN.CD ---
Today's Communication / Plan
-
Outpatient CBC in one week.
Aspirin 81 mg daily.
Outpatient MCOT monitor.
Lisinopril 2.5 mg daily.
Stable for outpatient follow up.
Impression / Plan
-
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
#Severe
-Chronic, progressive.
-s/p #26 Lake LIZZ S3 TAVR via right femoral approach, 03/24/2023.
-Telemetry showed NSVT, LBBB after TAVR. Plan for monitor at the time of discharge.
-Left femoral hematoma on POD #1. US shows now pseudoaneurysm.
-H/H stable. Thrombocytopenia noted, recovering.
-Antithrombotic therapy with aspirin.
#ICMO/HFrEF
-Chronic, stable.
-LVEF =~40% on yesterday's echo.
-Restart lisinopril 2.5 mg daily.
-Change home furosemide to 40 mg daily.
-Daily home weights.
#CAD s/p CABG
-Chronic, stable. Denies angina.
-Cath shows patent PEREYRA to LAD, SVG to diag and SVG to om.
-Continue aspirin.
-Limited role for statin given age.
#HTN
-Chronic, stable.
#HLD
#LBBB with PVC
Subjective/Interval History:
Weight down 1.2 kg (56.2 --> 55).
SaO2 = 96% on RA.
Platelets trending up.
DATA:
TAVR, 03/24/2024:
Conclusions:
1. Successful placement of # 26 (+1 cc) Lizz S3 Ultra aortic valve via right transfemoral approach with no acute complications.
2. Acute on chronic heart failure with elevated filling pressures (LVEDP = 24 at 58.5 kg).
TTE, 03/25/2024:
CONCLUSIONS
Severely reduced left ventricular systolic function. Moderate concentric left
ventricular hypertrophy.
Left ventricular ejection fraction is 25-30% by visual assessment.Global
hypokinesis.
Well-seated, normally functioning bioprosthetic aortic valve (status post
TAVR). Peak/mean gradients are 8/4mmHg.
Compared to prior study of 01/04/24, the aortic valve has been replaced. The
ejection fraction is similar.
Groin US, 03/25/2024:
IMPRESSION:
1. No pseudoaneurysm demonstrated.
2. Soft tissue hematoma within the left groin, measuring 5.6 cm in greatest dimension, extending into the left inguinal canal.
CTA Abdomen/Pelvis, 03/27/2024:
IMPRESSION:
1). There is left femoral soft tissue mass consistent with hematoma extending into the left inguinal canal and measuring approximately 2.2 x 5.5 x 10.0 cm in AP, transverse and craniocaudal dimensions respectively
No acute hemorrhage is demonstrated in this soft tissue mass/hematoma.
2). There is moderately extensive vascular calcification in the abdominal aorta, SMA, celiac artery branches and renal artery origins as well as in the iliac vessels bilaterally without evidence of flow restricting stenosis
3). There is thickening of the gallbladder wall to approximately 6 mm suggesting possible cholecystitis
No gallbladder calculi are demonstrated.
There is pneumobilia in the left lobe of the liver such as may be seen following recently passed calculus.
4). There are small bilateral pleural effusions with associated compressive atelectasis at the posterior lung bases.
5). There are bilateral renal cysts.
6). There is multilevel lumbar degenerative disc disease.
7). There is left hip replacement.
Physical Exam
Vital Signs/Labs
Vital Signs
Temp Pulse Resp BP Pulse Ox
36.5 C 66 16 108/53 96
03/28/24 07:56 03/28/24 08:00 03/28/24 07:56 03/28/24 06:35 03/28/24 07:56
03/27/24 03/28/24 03/29/24
11:59 11:59 11:59
Actual Weight 56.2 kg 55 kg
03/28/24 04:55
03/28/24 04:55
PT 15.1 Sec (11.4-14.6) H 03/27/24 15:01
INR 1.16 03/27/24 15:01
APTT 31.4 Sec (23.4-35.0) 03/27/24 15:01
Magnesium 1.7 mg/dl (1.6-2.3) 03/28/24 04:55
03/15/24
12:51
Msl-V-Hvhstjyzjrk Pept 3780
Physical Exam
Constitutional: No acute distress and Comfortable
EENT: Anicteric and Moist mucous membranes
Cardiovascular: Rhythm & rate is regular, Pedal edema is absent, JVD pressure is normal, S1S2 is normal and Murmur/rub/gallop absent
Respiratory: Respiratory effort normal, Lungs clear to auscul., Wheeze Absent, Crackles Absent and Rhonchi Absent
GI: Soft, Distention absent, Flat, Non tender and Normal bowel sounds
Neuro/Psych: AO x 3
Other: Cath Site (Right femoral access site is C/D/I. Left access site is ecchymotic, mild tenderness.)
Data Reviewed
-
Date of Service: March 28, 2024
Medical Decision Making: Reviewed Test Results, Independent Historian Assessment, Test Interpretation and Review of Case with other Provider
EKG: Tracing Personally Visualized and interpreted and Report Reviewed by me
Echo: Tracing Personally Visualized and interpreted and Report Reviewed by me
X-Ray/CT/US/MRI/NUC/PET: Image Personally Visualized and interpreted and Report Reviewed by me
Medical Tests (PFT, Pathology etc): Image Personally Visualized and interpreted and Report Reviewed by me
Labs: Labs Reviewed by me
Old Records: Reviewed
[2024-03-28 12:25] VITALS: BP 109/81; PULSE 73; O2SAT 99
--- NOTE | 2024-03-28 13:23 | PTCARENOTE ---
Patient worked with PT and given rolling walker for discharge. Patient seen by Dr. Reardon, ok for discharge, informed of ecchymosis left flank area which is soft and nontender. Reviewed discharge instructions with the patient, his DIL and son and
they state their understanding. Aware of new medications which need to be picked up, that he should hold his baby aspirin until labs completed and ok'd by cardiology. Reviewed follow up cardiology and echo appointments. Patient discharged home with
his family to his assisted living with CT transitional nursing care.
--- NOTE | 2024-03-28 13:29 | PTCARENOTE ---
Rhythm star monitor placed on the patient prior to discharge.
== END 2024-03-28 13:51 | disposition home or self-care (01) | DRG 266 ==
LOC: IVU 09:35
PROVIDERS: Clinical Nurse Specialist Acute Care; Nurse Practitioner; Physician Assistant Medical; ADMITTING PHYSICIAN Thoracic Surgery (Cardiothoracic Vascular Surgery); CONSULT PHYSICIAN Internal Medicine Cardiovascular Disease; FAMILY PHYSICIAN Hospitalist
PROC: 02RF38Z Replacement of Aortic Valve with Zooplastic Tissue, Percutaneous Approach (ICD-10-PCS; 2024-03-24)
PROC: 30233N1 Transfusion of Nonautologous Red Blood Cells into Peripheral Vein, Percutaneous Approach (ICD-10-PCS; 2024-03-27)
PROC: 30233R1 Transfusion of Nonautologous Platelets into Peripheral Vein, Percutaneous Approach (ICD-10-PCS; 2024-03-27)
DX: I35.0 Nonrheumatic aortic (valve) stenosis (principal); I50.43 Acute on chronic combined systolic (congestive) and diastolic (congestive) heart failure; I47.20 Ventricular tachycardia, unspecified; Z68.1 Body mass index [BMI] 19.9 or less, adult; I5A Non-ischemic myocardial injury (non-traumatic); L76.32 Postprocedural hematoma of skin and subcutaneous tissue following other procedure; N99.841 Postprocedural hematoma of a genitourinary system organ or structure following other procedure; E87.1 Hypo-osmolality and hyponatremia; D62 Acute posthemorrhagic anemia; R64 Cachexia; R63.6 Underweight; I25.10 Atherosclerotic heart disease of native coronary artery without angina pectoris; I11.0 Hypertensive heart disease with heart failure; Y83.8 Other surgical procedures as the cause of abnormal reaction of the patient, or of later complication, without mention of misadventure at the time of the procedure; N50.89 Other specified disorders of the male genital organs; D69.59 Other secondary thrombocytopenia; I44.7 Left bundle-branch block, unspecified; I25.5 Ischemic cardiomyopathy; I49.3 Ventricular premature depolarization; E78.5 Hyperlipidemia, unspecified; N40.0 Benign prostatic hyperplasia without lower urinary tract symptoms
CPT/HCPCS: 93308; 33361; 36415; 71045; 71046; 74174; 80048; 80053; 81003; 81015; 82248; 83036; 83735; 83880; 85025; 85027; 85347; 85384; 85610; 85730; 86022; 86850; 86900; 86901; 86920; 87070; 87086; 93005; 93306; 93321; 93325; 93926; 97116; 97163; 97166; 97530; C1760; C1769; C1894; J2597; P9016; P9073; Q9967

== ENCOUNTER → 2024-04-21 10:18 | Outpatient (REF) | payer OTHER, SELFPAY ==
[2024-04-21 11:24] LABS: Hematocrit 35.1 % (39.0-52.0); Hemoglobin 11.5 g/dL (13.0-18.0); Mean Corp Hgb Conc. 32.8 g/dL (33.0-37.0); Mean Corpuscular Hgb 32.8 pg (27.0-31.0); Red Blood Cell Count 3.51 10^6/uL (4.70-6.10); Red Cell Dist. Width 15.9 % (11.5-14.5); White Blood Cell Count 4.6 10^3/uL (4.8-10.8)
[2024-04-21 11:48] LABS: Mean Platelet Volume 11.2 fL (7.4-10.4); Platelet Count 74 10^3/uL (130-400)
[2024-04-21 11:49] LABS: Absolute Neutrophils -Man Diff 2.8 10^3/uL (1.4-6.5); Atypical Lymphocytes 3 %; Band Neutrophils 1 % (0-3); Eosinophils 1 % (0-6); Lymphocytes 27 % (20-51); Monocytes 7 % (2-9); Segmented Neutrophils 60 % (42-75)
[2024-04-21 11:51] LABS: Anisocytosis 1+; Metamyelocytes 1 % (-); Normal RBC Morphology No; Ovalocytes 1+; Platelets Checked Yes; Total Cells Counted 100
[2024-04-21 11:52] LABS: Acanthocytes Occasional
[2024-04-21 12:19] LABS: ALT (SGPT) 17 U/L (0-50); AST (SGOT) 24 U/L (17-59); Albumin 4.1 g/dl (3.5-5.0); Alkaline Phosphatase 61 U/L (38-126); Blood Urea Nitrogen 14 mg/dl (9-20); Calcium 9.4 mg/dl (8.4-10.2); Carbon Dioxide 24 mmol/L (22-30); Chloride 103 mmol/L (98-107); Glucose 98 mg/dl (70-99); Potassium 4.6 mmol/L (3.5-5.1); Sodium 137 mmol/L (135-145); Total Bilirubin 0.8 mg/dl (0.2-1.3); Total Protein 6.3 g/dl (6.3-8.2); eGFR > 60.00
[2024-04-21 12:35] LABS: TSH Reflex To Free T4 3.91 uIU/ml (0.47-4.68)
== END ==
LOC: HWRCS 10:18
PROVIDERS: ATTENDING PHYSICIAN Internal Medicine Cardiovascular Disease; FAMILY PHYSICIAN Hospitalist; REFERRING PHYSICIAN Thoracic Surgery (Cardiothoracic Vascular Surgery)
DX: I35.0 Nonrheumatic aortic (valve) stenosis (principal); I47.29 Other ventricular tachycardia; E87.1 Hypo-osmolality and hyponatremia; E87.6 Hypokalemia; D62 Acute posthemorrhagic anemia
CPT/HCPCS: 36415; 80053; 84443; 85025; 93306

== ENCOUNTER 2024-05-19 14:19 | Inpatient (IN) | payer OTHER, SELFPAY ==
[2024-05-19] VITALS (9 sets, daily range): BP systolic 102–147; BP diastolic 52–69; BMI 19.4
--- NOTE | 2024-05-19 13:27 | W.ICD.CONTRA ---
Post ICD/BUNDLE BREAKER-D
-
History of MT?: Yes
LV Function
Left ventricular function study result?: Ejection Fraction </= 35%
ACEI/ARB/ARNI
Patient already on ACEI/ARB/ARNI: Yes
Beta-Henrique
Patient already on Beta Henrique: No
Beta Henrique Contraindication: Heart Rate < 60 bpm (intolerant in past, will possibly add after device bivicd implant)
--- NOTE | 2024-05-19 15:58 | ITS.CL.ICD ---
[facility] - ICD
Implantable Cardioverter Defibrillator
Procedure Report:
BiV ICD
TABLET TECHNICIAN-D with Bi-Ventricular Implantable Cardiac Defibrillator (BiV-ICD) Placement:
Mr. 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
branch block who has been on guideline directed medical therapy without any improvement in LVEF and has decreased from 30% to 20% now with bradycardia necessitating the hold of beta blockers with NSVT and PVCs. He has been on maximal guideline
directed medical therapy who has persistent severe LV systolic dysfunction (LVEF of 20%) with desynchrony with LBBB is in need for a BiV pacing and is here in EP lab for cardiac resynchronization therapy with defibrillator (TABLET TECHNICIAN-D).
Indications: Primary prevention of sudden cardiac with Irreversible and symptomatic NYHA Class III chronic systolic congestive heart failure with ischemic cardiomyopathy with depressed LV ejection fraction of 20% despite on maximal guideline
directed medical therapy, , Wide QRS with LBBB
Date of the Procedure: 05/19/2024
Pre-Operative Diagnosis: Systolic heart failure
Post-Operative Diagnosis: Systolic heart failure
Procedure Performed: TABLET TECHNICIAN-D with BIVENTRICULAR IMPLANTABLE DEFIBRILLATOR IMPLANTATION
Performing Physician:
Corwin Bradley MD
Anesthesia:
See anesthesia records
Detailed Description of the Procedure:
The patient was identified using hospital identification and informed consent obtained for the procedure. The risks were explained to the patient and the family including, but not limited to: Bleeding, infection, arrhythmia, stroke,
vascular/cardiac/lung puncture, surgery, pacemaker dependency/device malfunction. All questions were answered.
A surgical pause was performed in accordance with hospital regulations. Anesthesia service provided sedation as reported separately. Antibiotics administered IV for risk of bacterial colonization. After obtaining informed and written consent, the
patient was brought to the electrophysiology laboratory.
A timeout was performed immediately before the procedure. The left chest was prepped from the nipple to the angle of the jaw with chlorhexidine, and draped following sterile technique in usual routine.�
The procedure site was meticulously prepared with surgical scrub and allowed to dry with no pooling. Sterile draping was applied to cover the procedure site. The image intensifier was draped with sterile bag and positioned over the patient.
The left infra-clavicular region was prepped and draped in the usual sterile fashion. Local anesthesia was administered subcutaneously using 1% lidocaine / Bupivacaine. The left cephalic vein cut-down was performed with an incision at the
delto-pectoral groove, and vascular sheaths were introduced for lead access. These were advanced into the right ventricle and the right atrium.
The right ventricular ICD lead was secured in position with an active fixation technique at the apical septal location.
Attention turned to the coronary sinus. The guide wire was advanced to the IVC and a long hemostatic multipurpose peel away sheath was advanced to the RA.
The CS was cannulated using radiofocus glidewire.
The sheath was advanced into the CS over a Terumu glidewire. Coronary sinus anatomy was analyzed with Glidewire on Flouroscopy and a suitable lateral branch was selected. The posterolateral branch was accessed using a Whisper wire. The quadripolar
lead was used and advanced into the postero-lateral branch over the BMW.
During pacing, QRS complex was favorable, with a QS in lateral leads and RBBB configuration during LV pacing. It was deemed ideal for biventricular pacing. Diaphragmatic stimulation was not present with high output pacing here. The long guiding
sheath and inner sheath were removed from the vein and then from the body without change in lead position, impedance, sensing, or capture. Short MT interval permitted AdaptivCRT pacing with BiV / LV only pacing.� The lead was sutured to the
underlying pectoralis fascia with 2-0 Ethibond stitches.�
The RA lead was attached in the right atrial appendage with active fixation. There was excellent sensing, pacing, and impedance from the leads, with no diaphragmatic stimulation at 10 V output.�Bovie cautery, antibiotics, and fluoroscopy were used.
The leads were attached to the pulse generator in standard configuration with acceptable sensing and threshold parameters. The pocket was irrigated with antibiotic solution; the pocket was inspected with no active bleeding noted. The device and the
leads were placed in the pocket.
The device was anchored to the underlying fascia using 2-0 Ethibond suture.
A Tyrx pouch was placed around the device and the leads.
Deep subcutaneous tissues were closed with 2-0 VLoc sutures; intermediate subcutaneous tissue was reopposed using a running 2-0 V loc suture, and the dermis was reopposed using a running 4-0 V loc subcuticular suture. Sponge counts / sharp counts
were appropriate.
Procedure End:
The procedure was tolerated well. Aquacel bandaged was applied. A pressure dressing was applied.
Estimated Blood loss:
10 cc
Specimens Removed:
No cultures and no specimens were obtained. No intraoperative pathology was identified.
Urine output:
None
Packs / Drains/ Tubes:
None
Instrument / Sponge Count Correct:
Yes
Flouro time:
8.4min / 5.17Wqug7
Complications of the Procedure:
None
Condition of Patient at Time of Transfer:
Hemodynamically stable with no neurological or vascular compromise.
Device information:�
Generator: Access Systems; Model: [id number]; Serial # [id number]�
����������� Atrial Lead: Medtronic; Model: 5076-52; Serial # [id number]
����������������������� Measured data in the right atrium was sensing of 0.6 mV and, impedance of 380ohms and threshold of 1.0 V at 0.4ms�
����������� RV Lead: Medtronic; Model: 6935M-62; Serial # [id number]
����������������������� Measured data on the RV lead was sensing of 10 mV, impedance of 380 ohms and threshold of 0.75 V at 0.4ms�
����������� LV pacing lead: Medtronic; Model: 4298-88; Serial # [id number]
����������������������� Measured data on the LV lead was impedance of 589 ohms and threshold of 1.25 V at 0.4ms (LV1 to LV2; diaphragm not seen at max output).
PROGRAMMING PARAMETERS:�
Darryn parameter settings were DDDR 60-130 �
����������� Paced AV interval: 130ms
����������� Sensed AV interval: 100 ms.
����������� Rate Adaptive A-V Interval: on
Tachy parameter settings:
����������� SVT discrimination: On
����������� AF/AFl: On
����������� SVT limit: 260 msec
����������� VT zone:
Slow VT: 450msec - Monitor
����������������������� Fast VT/ VF: >188 bpm� Shock� x6
�
Summary:
Successful implantation of TABLET TECHNICIAN-D
Results/Recommendations:
-Post op CXR and EKG.
-Please follow up CXR�
Instructions to be given to patient:�
- Please follow up with [facility] at [address] [place] [address] ([phone]) to get your wound checked in 2 weeks of your discharge.
- Do not wet incision site until after it is evaluated at cardiology clinic. No baths or showers until then. Sponge baths / showers are OK but dab dry the dressing after it is wet.�
- Allow 'steri strips' to fall off on their own�
- Do not lift left elbow above shoulder, particularly with sudden jerking movements, for 1 month�
- Do not lift anything weighing more than 5 pounds with the left arm for 1 month�
- If you notice any fevers, shortness of breath, lightheadedness, chest pain, or worsening swelling in the wound site, please contact the arrhythmia clinic, contact your guidance services coordinator, or present to the hospital for evaluation.�
Corwin Bradley MD
Electrophysiology
--- NOTE | 2024-05-19 16:42 | CM ---
Chart reviewed. Patient is independent of ADLS, lives with his in a apartment at [facility], elevator access, has a RW at home but does not use it. Plan is for the patient to return home. CM to follow
--- NOTE | 2024-05-19 17:48 | PTCARENOTE ---
Pt received post BIVICD at 1625. Pt alert and oriented. Denies any pain or discomfort. Room air sat 98%. Left arm immobilizer intact and left chest incision WNL with aquacell intact.
[2024-05-19] MEDS: ANCEF 5 IV (19:46)
[2024-05-19] MEDS: OCUVITE SOFTGEL 1 CAP PO (19:47)
[2024-05-19] MEDS: FLOMAX 0.4 MG PO (21:15)
--- NOTE | 2024-05-20 00:32 | PTCARENOTE ---
Assumed care of the pt @ 1900. Pt is AAOx3 A/V paced on the monitor vss left arm immobilizer in place left chest dressing c/d/i. Call cruz within reach.
[2024-05-20] MEDS: TYLENOL 650 MG PO ×2 (01:08→07:20)
[2024-05-20 03:52] VITALS: BP 118/67
[2024-05-20] MEDS: ANCEF 5 IV (04:18)
[2024-05-20 04:49] LABS: Hematocrit 34.9 % (39.0-52.0); Hemoglobin 11.8 g/dL (13.0-18.0); Mean Corp Hgb Conc. 33.8 g/dL (33.0-37.0); Mean Corpuscular Volume 97.5 fL (80.0-94.0); Mean Platelet Volume 11.9 fL (7.4-10.4); Platelet Count 76 10^3/uL (130-400); Red Blood Cell Count 3.58 10^6/uL (4.70-6.10); Red Cell Dist. Width 14.6 % (11.5-14.5); White Blood Cell Count 4.9 10^3/uL (4.8-10.8)
[2024-05-20 05:09] LABS: Blood Urea Nitrogen 18 mg/dl (9-20); Calcium 9.4 mg/dl (8.4-10.2); Carbon Dioxide 25 mmol/L (22-30); Chloride 107 mmol/L (98-107); Estimated Creatinine Clearance 64 ml/min; Glucose 70 mg/dl (70-99); Magnesium 1.8 mg/dl (1.6-2.3); Potassium 4.7 mmol/L (3.5-5.1); Sodium 139 mmol/L (135-145); eGFR > 60.00
[2024-05-20 07:03] VITALS: BP 117/65
[2024-05-20] MEDS: ASPIR LOW (ENTERIC COATED) 81 MG PO (07:16)
[2024-05-20] MEDS: ZESTRIL 2.5 MG PO (07:16)
[2024-05-20] MEDS: PACERONE 200 MG PO (07:16)
[2024-05-20] MEDS: OCUVITE SOFTGEL 1 CAP PO (07:16)
[2024-05-20] MEDS: TOPROL XL 12.5 MG PO (08:27)
--- NOTE | 2024-05-20 08:51 | W.PN.CARDCBS ---
Addendum entered and electronically signed by Jessica Garrett MD 05/20/24 11:18:
I saw and examined the patient.
The CREDIT ASSESSMENT ANALYST's note was reviewed and I agree with the note.
Comment: 89 y/o, PMH sig for CAD s/p CABG x3, ischemic cardiomyopathy with chronic systolic HFrEF 20%, severe s/p TAVR 03/24/24 complicated by left groin hematoma, Chronic LBBB, NSVT on amio, now s/p Bi-V ICD implant. He is feeling well without
complain, on exam the device site is soft and dressing is CDI, lungs CTA, rrr ext without edema. OK for discharge with device precautions. Continue GDMT. Will have follow up and will keep dressing in place until that visit.
Original Note:
Today's Communication / Plan
-
resume metoprolol 12.5mg BID
incision check next week
home today
Impression / Plan
-
PCP: Felicity Sandhu, DO
CDY: Mohit Reardon, DO
89 y/o, PMH sig for CAD s/p CABG x3, ischemic cardiomyopathy with chronic systolic HFrEF 20%, severe s/p TAVR 03/24/24 complicated by left groin hematoma, Chronic LBBB.
Has been on max nghia GDMT with worsening EF, now with bradycardia and off beta blockers. Home cardio monitor post TAVR with NSVT and PVCs, started on amiodarone as outpatient.
Presented to EP lab and now s/p Bi-V ICD implant.
IMPRESSION/PLAN:
Chronic systolic HFrEF 20%/LBBB/ICM
s/p Bi-V ICD implant
tele- V/AV paced 60s
post CXR w/stable lead position, no pneumothorax, no congestion
continue GDMT with lisinopril
resume metoprolol xl 12.5mg BID today
incision check next week
repeat echo in 2-3 months
home today
Severe /s/p TAVR 03/24/24
stable
groin hematoma resolved with conservative management
CAD/CAB x3- stable, continue daily aspirin
NSVT- none seen on tele
continue amiodarone
Progress Note - Undraped Artist Model
Subjective
Date of Service: May 20, 2024
Denies cp/palps/dyspnea
oob ambulating
device site without pain
Objective
Labs:
05/20/24 04:12
05/20/24 04:12
Labs
Hgb 11.8 g/dL (13.0-18.0) L 05/20/24 04:12
Hct 34.9 % (39.0-52.0) L 05/20/24 04:12
Plt Count 76 10^3/uL (130-400) L 05/20/24 04:12
Sodium 139 mmol/L (135-145) 05/20/24 04:12
Potassium 4.7 mmol/L (3.5-5.1) 05/20/24 04:12
BUN 18 mg/dl (9-20) 05/20/24 04:12
Creatinine 0.7 mg/dL (0.7-1.3) 05/20/24 04:12
Glucose 70 mg/dl (70-99) 05/20/24 04:12
Vital Signs and I&O:
Vital Signs
Temp Pulse Resp BP Pulse Ox
97.6 F 60 20 117/65 94
05/20/24 07:04 05/20/24 03:52 05/20/24 07:04 05/20/24 07:03 05/20/24 07:04
Vital Signs
Temp Pulse Resp BP Pulse Ox
97.6 F 60 20 117/65 94
05/20/24 07:04 05/20/24 03:52 05/20/24 07:04 05/20/24 07:03 05/20/24 07:04
Intake & Output
05/18/24 05/19/24 05/20/24 05/21/24
06:59 06:59 06:59 06:59
Output Total 600 / 600
Balance -600 / -600
Physical Exam
Physical Exam
AAOx3, MAEE 06/13
RRR S1 S2 soft /6 holosystolic murmur across base
CTA bilat, non labored
soft abd, + bs
left acw w/dressing CDI, no ht/bleeding, non tender
bilat extremities w/palpable distal pulses, no edema
[2024-05-20 11:00] VITALS: BP 112/60
--- NOTE | 2024-05-20 11:03 | PTCARENOTE ---
Pt received this am wearing left arm immobilizer. Left upper chest dressing intact, site WNL. Medicated with tylenol as ordered for left shoulder pain with relief. Pt oob ad chanelle, gait steady. Pt discharged to home with his daughter in law. Discharge
instructions given and reviewed with good understanding and all questions answered.
[2024-05-20 11:25] VITALS: BP 112/60
--- NOTE | 2024-05-20 11:54 | W.DS.TRANS ---
DC Summary - Final Expense Agent
-
Discharge Instructions:
Discharge Diagnosis/Procedures BiV ICD implant
Diet Low Cholesterol,2 Gram Sodium
Driving Restrictions No driving for 1 week
Bathing Restrictions OK to Shower
Specialty Instructions Weigh Daily
Instructions:
Stand-Alone Forms: DC Inst - Implanted Device
Changes to Home Medications: Yes
Discharge Medications:
DC Medications w/original date entered in [facility]
aspirin 81 mg tablet,delayed release 81 mg PO DAILY 01/01/24
calcium carbonate 260 mg PO BID Supplement #0 tabs 03/25/24
cholecalciferol (vitamin D3) 25 mcg (1,000 unit) tablet 25 mcg PO DAILY Supplement #0 tabs 03/25/24
cyanocobalamin (vitamin B-12) 1,000 mcg tablet 1,000 mcg PO DAILY Supplement #0 tabs 03/25/24
lisinopril 2.5 mg tablet 2.5 mg PO DAILY Blood pressure #0 tabs 03/25/24
tamsulosin 0.4 mg capsule 0.4 mg PO HS Urinary issue #0 caps 03/25/24
vit C 250 mg-vit E 90 mg-zinc 40 mg-copper 1 [id number]-iokmnm capsule (PreserVision AREDS-2) 1 tab PO BID Supplement #0 caps 03/25/24
amiodarone 200 mg tablet 200 mg PO DAILY 05/19/24
magnesium 250 mg tablet 250 mg PO BID 05/19/24
metoprolol succinate 25 mg tablet,extended release 24 hr 12.5 mg (1/2 x 25 mg) PO BID #60 tabs 05/20/24
Home Medication Changes
RESUME: metoprolol succinate
Pending Results: No
== END 2024-05-20 12:02 | disposition home or self-care (01) | DRG 277 ==
LOC: IVU 14:19
PROVIDERS: Nurse Practitioner Adult Health; ADMITTING PHYSICIAN Internal Medicine Cardiovascular Disease; FAMILY PHYSICIAN Hospitalist
PROC: 0JH609Z Insertion of Cardiac Resynchronization Defibrillator Pulse Generator into Chest Subcutaneous Tissue and Fascia, Open Approach (ICD-10-PCS; 2024-05-19)
PROC: 02HK3KZ Insertion of Defibrillator Lead into Right Ventricle, Percutaneous Approach (ICD-10-PCS; 2024-05-19)
PROC: 3E0102A Introduction of Anti-Infective Envelope into Subcutaneous Tissue, Open Approach (ICD-10-PCS; 2024-05-19)
PROC: 02HL3KZ Insertion of Defibrillator Lead into Left Ventricle, Percutaneous Approach (ICD-10-PCS; 2024-05-19)
PROC: 02H63KZ Insertion of Defibrillator Lead into Right Atrium, Percutaneous Approach (ICD-10-PCS; 2024-05-19)
DX: I50.22 Chronic systolic (congestive) heart failure (principal); I47.20 Ventricular tachycardia, unspecified; I44.7 Left bundle-branch block, unspecified; I25.5 Ischemic cardiomyopathy; I49.3 Ventricular premature depolarization; I25.10 Atherosclerotic heart disease of native coronary artery without angina pectoris; N40.1 Benign prostatic hyperplasia with lower urinary tract symptoms; R35.0 Frequency of micturition; M19.90 Unspecified osteoarthritis, unspecified site; Z95.1 Presence of aortocoronary bypass graft; Z95.2 Presence of prosthetic heart valve; Z79.82 Long term (current) use of aspirin; Z87.891 Personal history of nicotine dependence; Z85.46 Personal history of malignant neoplasm of prostate; Z92.3 Personal history of irradiation; Z97.2 Presence of dental prosthetic device (complete) (partial)
CPT/HCPCS: 33225; 33249; 71045; 80048; 83735; 85027; 93005; C1769; C1777; C1882; C1887; C1892; C1898; C1900; Q9967

== ENCOUNTER 2024-12-06 16:58 | Inpatient (IN) | payer OTHER, SELFPAY ==
[2024-12-01 13:43] VITALS: BMI 18.6
[2024-12-01 14:11] LABS: Hematocrit 39.6 % (39.0-52.0); Hemoglobin 13.0 g/dL (13.0-18.0); Mean Corp Hgb Conc. 32.8 g/dL (33.0-37.0); Mean Corpuscular Volume 102.1 fL (80.0-94.0); Platelet Count 183 10^3/uL (130-400); Red Cell Dist. Width 15.0 % (11.5-14.5)
[2024-12-01 14:36] LABS: Blood Urea Nitrogen 15 mg/dl (9-20); Calcium 9.1 mg/dl (8.4-10.2); Carbon Dioxide 26 mmol/L (22-30); Chloride 105 mmol/L (98-107); Estimated Creatinine Clearance 54 ml/min; Glucose 92 mg/dl (70-99); Potassium 4.8 mmol/L (3.5-5.1); Sodium 140 mmol/L (135-145); eGFR > 60.00
[2024-12-06] VITALS (15 sets, daily range): BP systolic 118–183; BP diastolic 65–137; BMI 18.6; BMI 18.4
[2024-12-06] MEDS: NORMOSOL-R/PLASMALYTE-A 1000 IV (10:56)
[2024-12-06] MEDS: MORPHINE SULFATE 1 MG IV ×2 (14:33→14:48)
--- NOTE | 2024-12-06 14:50 | CON.CAR ---
Addendum entered and electronically signed by Goyo Zheng MD 12/06/24 17:05:
I saw and evaluated the patient, and I provided the substantive portion of the medical decision making.
I reviewed and agree with the note by JERI Wren, and it accurately reflects our care.
I personally performed the medical decision making of the this encounter and my assessment and plan is below:
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 No fevers. Heart failure seems compensated.
Exam shows a small are of a draining opening. The lateral border of the pocket is erythematous and the skin is thin and firm suggesting pre-erosion that likely represents cellulitis.
Imp
Infected BiV ICD pocket
S/p bladder stone extraction
CAD, hx CABG
Plan
IV ATB
Evaluation for system extraction
S/p TAVR for severe
BiV ICD
Chronic HFrEF, stable
Original Note:
Consultation
Consultation Request
Date/Time Consultation Requested: 12/06/2024 14:30
Date/Time Consultation Performed: 12/06/2024 14:50
Requesting Provider: Dr. Bar
Performing Provider: JERI Wren for Dr. Zheng
Reason for Consultation: Left anterior chest wound in the setting of cardiac device
Medical History
-
Chief Complaint: Left anterior chest wound
History of Present Illness:
Mr. 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
Dipika and discharged home after. Cardiology was consulted for concern for infected ICD. The patient was waking up from his procedure so this HPI is limited. Per his , he has been putting a dressing over his left anterior chest. This has
been going on for at least 1 week. The discharge is foul-smelling. He is not having any chest pain. He is not hypoxic.
Past Medical History
Past Medical History: Arrhythmias (NSVT), CAD (Prior CABG), CHF (DCM), HTN, Hypercholesterolemia, Valvular Disease (Severe s/p TAVR) and Other (LBBB)
Past Surgical History: Cardiac and Orthopedic
Social History
Tobacco: Non-Smoker
Personal:
Living: With Family
Employment: Retired
Family History
Family History: Reviewed & Not Pertinent
Allergies / Home Medications
Allergy/AdvReac Type Severity Reaction Status Date / Time
dapagliflozin (From [facility]) Allergy Fatigue Verified 12/06/24 10:42
lisinopril Allergy Cough Verified 12/06/24 10:42
metoprolol Allergy Diarrhea, Verified 12/06/24 10:42
Weakness
NSAIDS (Non-Steroidal Allergy Pharmacy Verified 12/06/24 10:42
Anti-Inflamma to Review
tamsulosin Allergy Fatigue, Verified 12/06/24 10:42
dizziness,
weakness
�Medication �Instructions �Recorded �Confirmed �Type
aspirin 81 mg tablet,delayed 81 mg PO DAILY 01/01/24 12/06/24 History
release
cyanocobalamin (vitamin B-12) 1,000 mcg PO DAILY Supplement #0 03/25/24 12/06/24 Rx
1,000 mcg tablet tabs
vit C 250 mg-vit E 90 mg-zinc 40 1 tab PO BID Supplement #0 caps 03/25/24 12/06/24 Rx
mg-copper 1 [id number]-eadnfu
capsule (PreserVision AREDS-2)
amiodarone 200 mg tablet 200 mg PO HS 05/19/24 12/06/24 History
ascorbic acid (vitamin C) 500 mg 500 mg PO DAILY 11/28/24 12/06/24 History
tablet (Vitamin C)
cholecalciferol (vitamin D3) 50 50 mcg PO DAILY 11/28/24 12/06/24 History
mcg (2,000 unit) tablet (Vitamin
D3)
docusate sodium 100 mg capsule 100 mg PO HS 11/28/24 12/06/24 History
magnesium hydroxide 400 mg/5 mL 10 ml PO PRN PRN Constipation 11/28/24 11/28/24 History
oral suspension (Milk of Magnesia)
magnesium oxide 250 mg PO BID 11/28/24 12/06/24 History
valsartan 40 mg tablet 40 mg PO HS 11/28/24 12/06/24 History
Review of Systems
-
History Source: Patient
All other systems: Negative unless noted
Constitutional: No Symptoms
EENT: No Symptoms
Respiratory: No Symptoms
Cardiac: No Symptoms
Abdomen/GI: No Symptoms
: No Symptoms
Musculoskeletal: No Symptoms
Skin: Other (left anterior chest wound)
Neurological: No Symptoms
Endocrine: No Symptoms
Hematologic/Lymphatic: No Symptoms
Physical Exam
Vital Signs
Temp Pulse Resp BP Pulse Ox
97.6 F 65 20 169/121 96
12/06/24 14:05 12/06/24 15:45 12/06/24 15:45 12/06/24 15:45 12/06/24 15:45
Lab Results
12/01/24 11:17
12/01/24 11:17
Physical Exam
General: Well Developed, Well Nourished, No Apparent Distress and Comfortable
HEENT: Normocephalic, Anicteric and Moist Mucous Membranes
Respiratory: Clear and Non Labored Respirations
Cardiac: S1/S2 and Regular Rhythm
Breast: Deferred by me
GI: Soft, Non Tender and Non Distended
Rectal: Deferred by Provider
Genito-urinary: No Costovertebral Tender
Musculoskeletal: No Clubbing and No Cyanosis
Skin: Warm, Dry and Other (left anterior chest wound)
Neuro: Other (drowsy)
Hematologic/Lymphatic: No Lymphadenopathy
Psych: Calm
Impression / Plan
-
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
Primary Supervisor Buffing And Pasting: Dr. Reardon
Device infection - Medtronic BiV ICD
- Left anterior chest wound with malodorous drainage
- Blood cultures, wound cultures, consult ID
- Update echocardiogram
- EP Evaluation
- Interrogation 12/01/2024: AP 78%, R/L WHITING CAN WORKER 93/99%
Cystoscopy with stone removal, report pending
Dilated cardiomyopathy (LVEF 25 to 30%)
- He does not appear volume overloaded on exam
- GDMT is limited due to side effects (Farxiga, metoprolol, lisinopril)
- Update echocardiogram
- Trend daily weigh, I/Os
Coronary artery disease s/p CABG
- Stable without chest pain
- ASA had to be held in the past due to thrombocytopenia, follow CBC
Severe aortic stenosis s/p TAVR
-Peak/mean gradients 12/7 mmHg without AR on prior TTE
- Echocardiogram as above
NSVT, not on beta-diana due to side effects, continue amiodarone
LBBB
Data Reviewed
-
Medical Tests (Nuc Med, Echo etc): Report Reviewed by me
Labs: Labs Reviewed by me
Old Records: Reviewed
[2024-12-06] MEDS: DILAUDID 0.25 MG IV ×2 (15:12→15:28)
--- NOTE | 2024-12-06 15:42 | HPS.HSE ---
Family Physician
-
Family Physician: Felicity Sandhu DO
Chief Complaint
-
ICD site infection
History of Present Illness
89-year-old male came in for cystoscopy for bladder stone removal today, in the recovery room noted to have a foul smelling discharge from his ICD site.
Apparently the patient noted a discharge a week ago and started putting a dressing on the ICD site. Denies any fevers or chills.
He lives at home with his .
The patient is a poor and limited historian.
Currently complaining of penile pain after urologic procedure today.
Medical History
Past Medical History
Past Medical History: Reports Other
Additional Past Medical History:
Essential hypertension
CAD
Chronic heart failure reduced EF
Prostate cancer
Severe aortic stenosis
Macular degeneration
Hearing loss
Left bundle branch block
BPH
Past Surgical History: Reports Cholecystectomy, Orthopedic and Other
Additional Past Surgical History:
CABG
BiV ICD -May 2024
: Surgery
2 spinal surgeries
Social History
Tobacco: Former Smoker
Alcohol: Occasional
Drug: None
Personal:
Living: With Family
Employment: Retired
Family History
Family History: Not pertinent
Allergies / Home Medications
Allergies reflects when Allergies were last updated in [employer].
Home Medications with original date entered in [employer]
Allergy/Medication List:
Allergies
Allergy/AdvReac Type Severity Reaction Status Date / Time
dapagliflozin (From [facility]) Allergy Fatigue Verified 12/06/24 10:42
lisinopril Allergy Cough Verified 12/06/24 10:42
metoprolol Allergy Diarrhea, Verified 12/06/24 10:42
Weakness
NSAIDS (Non-Steroidal Allergy Pharmacy Verified 12/06/24 10:42
Anti-Inflamma to Review
tamsulosin Allergy Fatigue, Verified 12/06/24 10:42
dizziness,
weakness
Home Medications
aspirin 81 mg tablet,delayed release 81 mg PO DAILY 01/01/24
cyanocobalamin (vitamin B-12) 1,000 mcg tablet 1,000 mcg PO DAILY Supplement #0 tabs 03/25/24
vit C 250 mg-vit E 90 mg-zinc 40 mg-copper 1 kx-chejfa-qzjnym capsule (PreserVision AREDS-2) 1 tab PO BID Supplement #0 caps 03/25/24
amiodarone 200 mg tablet 200 mg PO HS 05/19/24
ascorbic acid (vitamin C) 500 mg tablet (Vitamin C) 500 mg PO DAILY 11/28/24
cholecalciferol (vitamin D3) 50 mcg (2,000 unit) tablet (Vitamin D3) 50 mcg PO DAILY 11/28/24
docusate sodium 100 mg capsule 100 mg PO HS 11/28/24
magnesium hydroxide 400 mg/5 mL oral suspension (Milk of Magnesia) 10 ml PO PRN PRN Constipation 11/28/24
magnesium oxide 250 mg PO BID 11/28/24
valsartan 40 mg tablet 40 mg PO HS 11/28/24
Review of Systems
-
History Source: Patient
A 12 point ROS was completed and negative except as noted: Yes
: Reports Other (Penile pain)
Physical Exam
Vital Signs
Vital Signs
Temp Pulse Resp BP Pulse Ox
97.6 F 71 12 170/88 94
12/06/24 14:05 12/06/24 15:31 12/06/24 15:31 12/06/24 15:31 12/06/24 15:37
Physical Exam
General: Appears in Distress, Pain and Cachectic
HEENT: NormoCephalic, Anicteric and Moist mucous membranes
Respiratory: Clear
Cardiac: S1/S2 and Regular Rhythm
GI: Soft, Non Tender and Non Distended
Genito-urinary: Deferred by me
Musculoskeletal: No Clubbing, No Cyanosis and No Edema
Skin: Warm and Dry
Neuro: Awake and Alert
Hematologic/Lymphatic: No Lymphadenopathy
Psych: Calm
Laboratory Results
-
12/01/24 11:17
12/01/24 11:17
Impression/Plan
-
Infected ICD site -admit to telemetry. Consult cardiology, infectious disease. Does not look septic.
Bladder stone -underwent cystoscopy today. Discussed with Dr. Bar.
CAD/CABG -bypass x 3 vessels.
History of NSVT
Chronic heart failure reduced EF -stable.
Severe -s/p TAVR, March 2024.
Essential hypertension -currently blood pressure elevated due to postop pain. Resume home meds.
Prostate cancer history
Underweight -BMI 18.
DNR -confirmed with patient.
--- NOTE | 2024-12-06 16:04 | CON.ID ---
Consultation
-
Date/Time Consultation Requested: December 06, 2024 1600
Date/Time Consultation Performed: December 06, 2024 1620
Requesting Provider: Dr. Fabiano Lynne
Performing Provider: Dr. Esther Patel
Reason for Consultation: Infected ICD site
Chief Complaint / Past History
Chief Complaint
Here for bladder stone removal
History of Present Illness
89-year-old male admitted for possible infected ICD site. He has history of CAD status post CABG, TAVR, arrhythmia status post ICD placement May 2024, bladder and ureteral stone who underwent outpatient stone removal by urology today. However at
recovery unit, nurse noted foul-smelling discharge on the gauze over his ICD site and therefore patient sent to the hospital. Patient states he has fragile skin and tends to bruise easily. About a week ago he noted discomfort over the left chest
wall ICD site with drainage on the lateral lower side. He placed a gauze over the ICD site and had changed it twice over the past week. The discomfort has significantly improved since then. No fevers or chills. He is currently complaining of
penile pain from the procedure.
Past History
Additional Past Medical History:
Hypertension
CAD status post CABG
Cardiomyopathy
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
Aortic stenosis status post TAVR 03/2024
Prostate cancer status post radiation
Cholecystectomy
Left THR
Spine surgeries x 2
Allergy History:
[facility] Allergy (Verified 12/06/24 10:42)
Fatigue
lisinopril Allergy (Verified 12/06/24 10:42)
Cough
metoprolol Allergy (Verified 12/06/24 10:42)
Diarrhea, Weakness
NSAIDS (Non-Steroidal Anti-Inflamma Allergy (Verified 12/06/24 10:42)
Pharmacy to Review
tamsulosin Allergy (Verified 12/06/24 10:42)
Fatigue, dizziness, weakness
Medications Reviewed: Yes
Current Antibiotics:
Cefazolin x 1 pre-op
Social History
Tobacco: Non-Smoker
Alcohol: None
Drug: None
Personal:
Family History
Family History: Not Pertinent
Review of Systems
Review of Systems
General: Negative Fever, Chills or Change in Appetite
HEENT: Negative Sinus Problems or Headache
Respiratory: Negative Dyspnea or Cough
Gasteroenterology: Negative Nausea, Vomiting or Diarrhea
Genital / Urological: Negative Dysuria or Flank Pain
Endocrine: Negative Weakness
All systems: All other systems were reviewed and were negative
Vital Signs
Temp Pulse Resp BP Pulse Ox
97.6 F 65 20 169/121 96
12/06/24 14:05 12/06/24 15:45 12/06/24 15:45 12/06/24 15:45 12/06/24 15:45
Physical Exam
Physical Exam
Constitutional: No Acute Distress and Cachetic
Eyes: No Conjunctival Hemorrhage and Sclera Anicteric
Cardiovascular: Regular Rate, S1/S2 and Other (Left chest wall ICD pocket site with areas of skin abrasions on lateral/axilla, no warmth, no discharge from wounds currently. )
Pulmonary: Clear
Gastrointestinal: Soft, Non Tender, Non Distended and Normal Bowel Sounds
Genito-Urinary: Negative CVA Tenderness
Extremities: Negative Edema
Skin: Other (scattered ecchymosis BUE, BLE)
Neurological: AO x 3
Lab / Diagnostic Study Results
12/01/24 11:17
12/01/24 11:17
Microbiology Results
Micro:
12/06/24 10:50 Urine Culture - Pending
Urine
Assessment / Plan
# ICD site skin abrasions
- Reportedly foul-smelling discharge on gauze.
- No discharge currently by my exam.
- Follow Blood cx's x 2
- Observe off abx at this time.
# POD 0 bladder stone extraction.
# Conditions present on admission:
Hypertension
CAD status post CABG
Cardiomyopathy
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
Aortic stenosis status post TAVR 03/2024
Prostate cancer status post radiation
Cholecystectomy
Left THR
Spine surgeries x 2
Care Review
Plan reviewed with: Physician
Total Time Spent with Patient (in minutes): Dr. Lynne
[2024-12-06 18:06] LABS: Hematocrit 43.1 % (39.0-52.0); Hemoglobin 14.1 g/dL (13.0-18.0); Mean Corp Hgb Conc. 32.7 g/dL (33.0-37.0); Mean Corpuscular Volume 102.1 fL (80.0-94.0); Nucleated Red Blood Cells % 0 % (-); Platelet Count 151 10^3/uL (130-400); Red Cell Dist. Width 15.4 % (11.5-14.5)
--- NOTE | 2024-12-06 18:25 | PTCARENOTE ---
1610 Pt arrived in stretcher from PACU. VSS. 08/18 pain. medicated per APR. Oriented to room and call cruz. bed locked and in lowest position. care ongoing
[2024-12-06 18:36] LABS: ALT (SGPT) 16 U/L (0-50); AST (SGOT) 24 U/L (17-59); Albumin 4.5 g/dl (3.5-5.0); Alkaline Phosphatase 93 U/L (38-126); Blood Urea Nitrogen 16 mg/dl (9-20); Calcium 9.1 mg/dl (8.4-10.2); Carbon Dioxide 24 mmol/L (22-30); Chloride 102 mmol/L (98-107); Estimated Creatinine Clearance 48 ml/min; Glucose 126 mg/dl (70-99); Potassium 4.3 mmol/L (3.5-5.1); Sodium 139 mmol/L (135-145); Total Protein 7.7 g/dl (6.3-8.2); eGFR > 60.00
[2024-12-06] MEDS: PACERONE 200 MG PO (21:13)
[2024-12-06] MEDS: COLACE 100 MG PO (21:13)
[2024-12-06] MEDS: MAGNESIUM OXIDE 200 MG PO (21:13)
[2024-12-06] MEDS: CLEOCIN 300 MG PO (21:14)
[2024-12-06] MEDS: DIOVAN 40 MG PO (21:14)
[2024-12-06] MEDS: ANCEF 5 IV (21:15)
[2024-12-06] MEDS: VIBRAMYCIN 100 MG PO (21:16)
[2024-12-07] VITALS (7 sets, daily range): BP systolic 97–119; BP diastolic 49–55; BMI 18.4
[2024-12-07] MEDS: ANCEF 5 IV (05:30)
--- NOTE | 2024-12-07 07:55 | W.PN.CD ---
Today's Communication / Plan
-
- Antibiotics and ECHO today
- Possible debridement and relocation of the system tomorrow
- NPO after midnight.
Impression / Plan
-
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
Primary Package Dye Stand Loader: Dr. Reardon
Device infection - Medtronic BiV ICD
- Left anterior chest wound with malodorous drainage
- Blood cultures, wound cultures, consult ID
- ID evaluated and appreciated the recs.
- Observe off antibiotics vs antibiotics and extraction
- Pt has TAVR and would like to avoid seeding of the valve.
- Started antibiotics
- Possible extraction of the whole system tomorrow.
- Update echocardiogram - the LV lead is in lateral br and quite a large displacement from the RV lead. There is a good chance of this helping the LVEF but is infected now and best course of action is to remove the system. Lifevest while on
antibiotics and bring back for reimplant. Chronic LBBB and LVEF of 20-25%. However, if there is no infection inthe pocket then we can relocate the pocket to a different location.
- Patient is not interested in removing the whole system at this time. Will proceed with washout of the pocket and clean the generator and wires and move to a different location with new pocket. The skin breakdown on the side may have introduced
the infection. The pocket appears fine but the edge of the ICD has open ulcer. If ulcer is communicating to the pocket then the ICD is infected and relocation has only moderate chance of success at best in the nursing home.
- Unclear source of primary infection - likely skin
- Interrogation 12/01/2024: AP 78%, R/L RACK CLEANER 93/99%
Cystoscopy with stone removal, report pending
Dilated cardiomyopathy (LVEF 25%)
- He does not appear volume overloaded on exam
- GDMT is limited due to side effects (Farxiga, metoprolol, lisinopril)
- Update echocardiogram - pending
- Trend daily weigh, I/Os
Coronary artery disease s/p CABG
- Stable without chest pain
- ASA had to be held in the past due to thrombocytopenia, follow CBC
Severe aortic stenosis s/p TAVR
-Peak/mean gradients 12/7 mmHg without AR on prior TTE
- Echocardiogram as above
NSVT, not on beta-diana due to side effects, continue amiodarone
LBBB
Physical Exam
Vital Signs/Labs
Vital Signs
Temp Pulse Resp BP Pulse Ox
99.2 F 67 16 103/53 96
12/07/24 03:25 12/07/24 03:25 12/07/24 03:25 12/07/24 03:25 12/07/24 03:25
12/06/24 12/07/24 12/08/24
06:59 06:59 06:59
Actual Weight 58.014 kg
12/06/24 17:56
12/06/24 17:56
Physical Exam
Constitutional: No acute distress and Comfortable
EENT: Anicteric
Cardiovascular: Rhythm & rate is regular, Pedal edema is absent and JVD pressure is normal
Respiratory: Respiratory effort normal and Lungs clear to auscul.
GI: Soft, Distention absent and Normal bowel sounds
Neuro/Psych: Alert, Oriented and AO x 3
Data Reviewed
-
Date of Service: December 07, 2024
Medical Decision Making: Reviewed Test Results, Independent Historian Assessment, Test Interpretation and Review of Case with other Provider
EKG: Tracing Personally Visualized and interpreted
Echo: Report Reviewed by me
X-Ray/CT/US/MRI/NUC/PET: Image Personally Visualized and interpreted
Labs: Labs Reviewed by me
Old Records: Reviewed
[2024-12-07] MEDS: VIBRAMYCIN PO (09:21)
[2024-12-07] MEDS: MAGNESIUM OXIDE 200 MG PO ×2 (09:21→20:36)
[2024-12-07] MEDS: CLEOCIN PO (09:21)
[2024-12-07] MEDS: VITAMIN B-12 1000 MCG PO (09:22)
[2024-12-07] MEDS: ASPIR LOW (ENTERIC COATED) 81 MG PO (09:22)
[2024-12-07] MEDS: VITAMIN D3 (cholecalciferol) 50 MCG PO (09:22)
[2024-12-07] MEDS: VITAMIN C 500 MG PO (09:22)
--- NOTE | 2024-12-07 12:01 | W.PN.ID1 ---
Date of Service
Date of Service: December 07, 2024
Today's Communication
See below.
Assessment / Plan
# ICD site skin abrasions (from pressure against upper arm)
- No discharge currently
- Follow Blood cx's x 2
-Spoke to Dr. Bradley - tomorrow, planning to relocate ICD generator to separate site, obtain deep cultures, allow the left chest wall to heal, then reimplant new device.
DC abx's to increase intra-op cx yield. Can give cefazolin 3g x1 pre-procedure.
If OR cx negative, then unlikely to have ICD infection, will treat with po abx then.
- Local wound care.
# POD #1 bladder stone extraction.
# Group B strep bacteruria - suspect contaminant/colonization
# Conditions present on admission:
Hypertension
CAD status post CABG
Cardiomyopathy
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
Aortic stenosis status post TAVR 03/2024
Prostate cancer status post radiation
Cholecystectomy
Left THR
Spine surgeries x 2
Chief Complaint
-: Other (ICD site wounds)
Subjective / Review of Systems
Penile pain improving, now has catheter.
ICD site no pain.
Vital Signs / Physical Exam
Vital Signs
Vital Signs
Temp Pulse Resp BP Pulse Ox
98.1 F 64 15 103/49 95
12/07/24 11:35 12/07/24 11:35 12/07/24 11:35 12/07/24 11:35 12/07/24 11:35
Physical Exam
Constitutional: No Acute Distress and Cachetic
Cardiovascular: Regular Rate, S1/S2 and Other (Left chest wall ICD site skin abrasions with 2 small superficial wounds, no significant drainage.)
Pulmonary: Clear
Gastrointestinal: Soft, Non Tender and Non Distended
Genito-Urinary: Brooks and Hematuria
Extremities: Negative Edema
Neurological: AO x 3
Objective Data
Lab Data
Lab Results
12/06/24 17:56
12/06/24 17:56
Estimated Creat Clear 48 ml/min 12/06/24 17:56
Total Bilirubin 0.7 mg/dl (0.2-1.3) 12/06/24 17:56
AST 24 U/L (17-59) 12/06/24 17:56
ALT 16 U/L (0-50) 12/06/24 17:56
Alkaline Phosphatase 93 U/L (38-126) 12/06/24 17:56
Most recent labs reviewed.
Micro Results:
12/07/24 09:20 Wound Culture - Pending
Skin Surface Gram Stain - Preliminary
12/07/24 09:20 Wound Culture - Pending
Skin Surface Gram Stain - Preliminary
12/06/24 10:50 Urine Culture - Final
Urine Streptococcus agalactiae
12/06/24 18:45 Blood Culture - Pending
Blood/Venous
12/06/24 17:56 Blood Culture - Pending
Blood/Venous
Care Review
Plan reviewed with: Physician (Dr. Bradley)
--- NOTE | 2024-12-07 12:07 | W.PN.URO.CBU ---
Today's Communication / Plan
-
KEEP MUÑOZ TEACH PT AND FAMILY MUÑOZ CARE
Assessment / Plan
-
s/p laser prostea stone incidental finding infected DEFIBRILATER WHILE INN [facility] PT WTH PARTIA RETNTION WILL KEEPFOLEY AND EDCIDE WITH PT WHEN TO REMOVE URINE ON ARRIVAL APPEARED INFECTED AAIT UR CX FROM THURSDAY PREOP
Diagnosis
-
Date of Service: December 07, 2024
-
Patient Diagnosis:
radiation prostatitis with stone retention
Post Op Day:
Subjective
-
dysuria but much better with muñoz
Objective
-
Vital Signs
Temp Pulse Resp BP Pulse Ox
98.1 F 64 15 103/49 95
12/07/24 11:35 12/07/24 11:35 12/07/24 11:35 12/07/24 11:35 12/07/24 11:35
Intake and Output
12/06/24 12/07/24 12/08/24
06:59 06:59 06:59
Intake Total 125 / 125 200 / 200
Output Total 310 / 310
Balance -185 / -185 200 / 200
Intake:
Oral fluids 200 / 200
IV fluids (Total) 125 / 125
normosol 125 / 125
Output:
Urine, Muñoz 300 / 300
Urine, Voided
Laboratory Results
12/06/24 17:56
12/06/24 17:56
Review of Systems
-
: Dysuria, Frequency and Difficulty Voiding
Physical Exam
-
General - well developed, well nourished, no acute distress
Chest - clear bilaterally
Abdomen - soft, non-tender, positive bowel sounds, no CVAT, no incisional pain or distention
Genitalia - normal
Rectal - normal
Skin - warm & dry with no rash
Neuro - AOx3, no motor deficits
Extremities - no clubbing, no cyanosis, no edema
Incision - clean, dry
Dressing - clean, dry, intact
Care Review
Data Reviewed
Discussed with: Hospitalist, Nursing and Family
--- NOTE | 2024-12-07 13:00 | W.PN.HOSP.TC ---
Today's Communication/Plan
-
N.p.o. after midnight
Assessment / Plan
Assessment / Plan
Gen-AAOx3, NAD, cachectic
HEENT-NC, AT, anicteric, clear oral mm
Neck-supple
CV-reg, no M, +S1/S2
Lungs-clear B/L
Abd-soft, NT, ND
Ext-no edema
Musculoskeletal-no cyanosis, clubbing
Skin-warm and dry, erythema surrounding the lateral aspect of defibrillator site on the chest as well as the medial left arm, no active drainage
Neuro-grossly non-focal
Psych-calm, cooperative
Presumed ICD pocket infection -no signs or symptoms of sepsis. Antibiotics on hold pending further cultures.
Spoke with ID and cardiology. Cardiology plans to relocate defibrillator to a new site tomorrow, obtain wound cultures. N.p.o. after midnight.
Bladder stone -underwent cystoscopy and stone extraction, 12/06. Expected hematuria noted. Maintain Brooks catheter on discharge, outpatient follow-up with Dr. Bar.
CAD/CABG -bypass x 3 vessels.
History of NSVT
Chronic heart failure reduced EF -stable.
Severe -s/p TAVR, March 2024.
Essential hypertension -blood pressure improved.
Prostate cancer history
Underweight -BMI 18.
DNR -confirmed with patient.
Updated patient's son Dar on the phone. All questions answered. Phone number is [phone].
Anticipated Discharge: > 48 hours
Subjective/Interval History
-
Date of Service: December 07, 2024
Patient seen and examined. No complaints.
Objective Data
-
Vital Signs:
Vital Signs
Temp Pulse Resp BP Pulse Ox
98.1 F 64 15 103/49 95
12/07/24 11:35 12/07/24 11:35 12/07/24 11:35 12/07/24 11:35 12/07/24 11:35
I&O
12/06/24 12/07/24 12/08/24
06:59 06:59 06:59
Intake Total 125 / 125 200 / 200
Output Total 310 / 310
Balance -185 / -185 200 / 200
Review of Systems
-
History Source: Patient
All other systems: Reviewed and negative
--- NOTE | 2024-12-07 15:36 | CM ---
Initial Assessment Completed By GENOVEVA Conroy. Patient lives in [address] at [facility] with his . Patient uses No DME, NO VN/PT.
PCP: Dr. Ganesh Bar
Pharmacy: [facility] ([place]
Patient has transportation when he is ready. Marisela Pollock #[phone], the liaison from [facility] stopped by and confirmed patient is a part of [facility]. There is a Leida who is could be the daughter in law and she is to the son: #[phone],
but left a message for Leida and the son, no call back yet. PLAN: Home No Needs vs. Home PT.
--- NOTE | 2024-12-07 16:23 | CM ---
Initial Assessment Completed By GENOVEVA Conroy. Patient lives in [address] at [facility] with his . Patient uses No DME, NO VN/PT.
PCP: Dr. Felicity Sandhu
Pharmacy: [facility] ([place]?)
Patient has transportation when he is ready. Marisela Pollock #[phone], the liaison from [facility] stopped by and confirmed patient is a part of [facility]. The son, Travis called RN station earlier: #[phone]. PLAN: Home No Needs vs. Home PT.
[2024-12-07] MEDS: PACERONE 200 MG PO (21:42)
[2024-12-07] MEDS: COLACE 100 MG PO (21:44)
[2024-12-07] MEDS: DIOVAN PO (22:00)
[2024-12-08] VITALS (12 sets, daily range): BP systolic 112–168; BP diastolic 54–82; PULSE 64; O2SAT 97; BMI 18.3
--- NOTE | 2024-12-08 07:52 | W.PN.CD ---
Today's Communication / Plan
-
- Pocket washout and debridement
- Relocation of the ICD to another pocket.
Impression / Plan
-
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
Primary Bisque Tile Burner: Dr. Reardon
Device infection - Medtronic BiV ICD
- Left anterior chest wound with malodorous drainage
- Blood cultures, wound cultures, consult ID
- ID evaluated and appreciated the recs.
- Observe off antibiotics vs antibiotics and extraction
- Pt has TAVR and would like to avoid seeding of the valve.
- on antibiotics
- Possible relocation of the ICD generator to give a chance with conservative measures.
- the LV lead is in lateral br and quite a large displacement from the RV lead. There is a good chance of this helping the LVEF but is infected now and best course of action is to remove the system. Lifevest while on antibiotics and bring back for
reimplant. Chronic LBBB and LVEF of 20-25%. However, if there is no infection inthe pocket then we can relocate the pocket to a different location.
- Patient is not interested in removing the whole system at this time. Will proceed with washout of the pocket and clean the generator and wires and move to a different location with new pocket. The skin breakdown on the side may have introduced
the infection. The pocket appears fine but the edge of the ICD has open ulcer. If ulcer is communicating to the pocket then the ICD is infected and relocation has only moderate chance of success at best in the detention.
- Unclear source of primary infection - likely skin
- Interrogation 12/01/2024: AP 78%, R/L SUPERVISOR PRODUCTION MANAGING 93/99%
Cystoscopy with stone removal, report pending
Dilated cardiomyopathy (LVEF 25%)
- He does not appear volume overloaded on exam
- GDMT is limited due to side effects (Farxiga, metoprolol, lisinopril)
- Update echocardiogram - pending
- Trend daily weigh, I/Os
Coronary artery disease s/p CABG
- Stable without chest pain
- ASA had to be held in the past due to thrombocytopenia, follow CBC
Severe aortic stenosis s/p TAVR
-Peak/mean gradients 12/7 mmHg without AR on prior TTE
- Echocardiogram as above
NSVT, not on beta-diana due to side effects, continue amiodarone
LBBB
Physical Exam
Vital Signs/Labs
Vital Signs
Temp Pulse Resp BP Pulse Ox
98.4 F 59 17 122/82 95
12/08/24 04:23 12/08/24 04:23 12/08/24 04:23 12/08/24 04:23 12/08/24 04:23
12/07/24 12/08/24 12/09/24
06:59 06:59 06:59
Actual Weight 58.014 kg 57.833 kg
12/06/24 17:56
12/06/24 17:56
Physical Exam
Constitutional: No acute distress and Comfortable
EENT: Anicteric and Moist mucous membranes
Cardiovascular: Rhythm & rate is regular, Pedal edema is absent and JVD pressure is normal
Respiratory: Respiratory effort normal, Lungs clear to auscul. and Wheeze Absent
GI: Soft, Distention absent, Non tender and Normal bowel sounds
Neuro/Psych: Alert, Oriented and AO x 3
Other: Cardiac Device Site
Data Reviewed
-
Date of Service: December 08, 2024
Medical Decision Making: Reviewed Test Results, Test Interpretation and Review of Case with other Provider
EKG: Tracing Personally Visualized and interpreted
Labs: Labs Reviewed by me
Old Records: Reviewed
--- NOTE | 2024-12-08 09:07 | W.PN.ID1 ---
Date of Service
Date of Service: December 08, 2024
Today's Communication
Pre-op cefazolin and continue post-op.
Assessment / Plan
# Superficial soft tissue vs ICD infection
- ICD site skin abrasions/wounds due to position of generator at axilla constant pressure from upper arm
- Superficial skin swabs pending - although may not reflect true pathogens
- Blood cx's x 2 negative to date
- TTE no significant change
- Agree with relocation of ICD generator to separate site, obtain deep cultures, allow the left chest wall to heal, then reimplant new device, if necessary.
Pt eventually agrees to procedure after discussion.
OK to hold abx to increase intra-op cx yield.
- Can give cefazolin 3g x1 pre-procedure, then continue cefazolin 2g IV q8 post-op
- If OR cx negative, then unlikely to have ICD infection, will treat with po abx.
- Local wound care.
# POD #2 bladder stone extraction.
# Group B strep bacteruria - suspect contaminant/colonization
Group B strep not considered urine pathogen in non- individuals.
(He is s/p cefazolin x 2 doses, doxy x 1 dose, clinda x 1 dose on 12/06)
# Conditions present on admission:
Hypertension
CAD status post CABG
Cardiomyopathy
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
Aortic stenosis status post TAVR 03/2024
Prostate cancer status post radiation
Cholecystectomy
Left THR
Spine surgeries x 2
Chief Complaint
-: Other (ICD site wounds)
Subjective / Review of Systems
Still c/o catheter/penile discomfort.
Vital Signs / Physical Exam
Vital Signs
Vital Signs
Temp Pulse Resp BP Pulse Ox
98.0 F 61 14 116/79 95
12/08/24 07:55 12/08/24 07:55 12/08/24 07:55 12/08/24 07:55 12/08/24 07:55
Physical Exam
Constitutional: No Acute Distress and Cachetic
Cardiovascular: Regular Rate, S1/S2 and Other (Left chest wall ICD site skin abrasions laterally with 2 small superficial wounds, no significant drainage.)
Pulmonary: Clear
Gastrointestinal: Soft, Non Tender and Non Distended
Genito-Urinary: Brooks and Hematuria
Extremities: Negative Edema
Neurological: AO x 3
Objective Data
Lab Data
Lab Results
12/06/24 17:56
12/06/24 17:56
Estimated Creat Clear 48 ml/min 12/06/24 17:56
Total Bilirubin 0.7 mg/dl (0.2-1.3) 12/06/24 17:56
AST 24 U/L (17-59) 12/06/24 17:56
ALT 16 U/L (0-50) 12/06/24 17:56
Alkaline Phosphatase 93 U/L (38-126) 12/06/24 17:56
Most recent labs reviewed.
Micro Results:
12/06/24 18:45 Blood Culture - Preliminary
Blood/Venous No Growth in 24 hours- Final report to follow
12/06/24 17:56 Blood Culture - Preliminary
Blood/Venous No Growth in 24 hours- Final report to follow
12/07/24 09:20 Wound Culture - Pending
Skin Surface Gram Stain - Preliminary
12/07/24 09:20 Wound Culture - Pending
Skin Surface Gram Stain - Preliminary
12/06/24 10:50 Urine Culture - Final
Urine Streptococcus agalactiae
Care Review
Plan reviewed with: Physician (Dr. Lynne)
[2024-12-08] MEDS: VITAMIN C 500 MG PO (09:47)
[2024-12-08] MEDS: MAGNESIUM OXIDE 200 MG PO ×2 (09:47→20:38)
[2024-12-08] MEDS: VITAMIN B-12 1000 MCG PO (09:47)
[2024-12-08] MEDS: ASPIR LOW (ENTERIC COATED) 81 MG PO (09:48)
[2024-12-08] MEDS: VITAMIN D3 (cholecalciferol) 50 MCG PO (09:48)
[2024-12-08] MEDS: TYLENOL 650 MG PO (10:01)
--- NOTE | 2024-12-08 11:36 | W.PN.URO.CBU ---
Today's Communication / Plan
-
muñoz out sat am expect [id number] and co/ of dysuria
Assessment / Plan
-
s/p laser prostea stone pt has irritative sxs with and without filley but i doubt pt can handle muñoz at home therefore rodríguez to remove muñoz sat
Diagnosis
-
Date of Service: December 08, 2024
-
Patient Diagnosis:
Post Op Day:
Patient Diagnosis:
radiation prostatitis with stone retention
Post Op Day:
Subjective
-
hates muñoz hated bladder before muñoz
Objective
-
Vital Signs
Temp Pulse Resp BP Pulse Ox
98.0 F 61 14 116/79 95
12/08/24 07:55 12/08/24 07:55 12/08/24 07:55 12/08/24 07:55 12/08/24 07:55
Intake and Output
12/07/24 12/08/24 12/09/24
06:59 06:59 06:59
Intake Total 125 / 125 1280 / 1280
Output Total 310 / 310 650 / 650
Balance -185 / -185 630 / 630
Intake:
Oral fluids 1280 / 1280
IV fluids (Total) 125 / 125
normosol 125 / 125
Output:
Urine, Muñoz 300 / 300 650 / 650
Urine, Voided
Laboratory Results
12/06/24 17:56
12/06/24 17:56
Review of Systems
-
: Difficulty Voiding
Physical Exam
-
General - well developed, well nourished, no acute distress
Chest - clear bilaterally
Abdomen - soft, non-tender, positive bowel sounds, no CVAT, no incisional pain or distention
Genitalia - normal
Rectal - normal
Skin - warm & dry with no rash
Neuro - AOx3, no motor deficits
Extremities - no clubbing, no cyanosis, no edema
Incision - clean, dry
Dressing - clean, dry, intact
Care Review
Data Reviewed
Discussed with: Nursing
--- NOTE | 2024-12-08 12:25 | W.PN.HOSP.TC ---
Today's Communication/Plan
-
Await procedure
Assessment / Plan
Assessment / Plan
Gen-AAOx3, NAD, cachectic
HEENT-NC, AT, anicteric, clear oral mm
Neck-supple
CV-reg, no M, +S1/S2
Lungs-clear B/L
Abd-soft, NT, ND
Ext-no edema
Musculoskeletal-no cyanosis, clubbing
Skin-warm and dry, erythema surrounding the lateral aspect of defibrillator site on the chest as well as the medial left arm, no active drainage
Neuro-grossly non-focal
Psych-calm, cooperative
Presumed ICD pocket infection -no signs or symptoms of sepsis. Antibiotics on hold pending further cultures.
Spoke with ID and cardiology. Cardiology plans to relocate defibrillator to a new site today, obtain wound cultures. N.p.o. currently.
Bladder stone -underwent cystoscopy and stone extraction, 12/06. Expected hematuria noted. Maintain Brooks catheter on discharge, outpatient follow-up with Dr. Bar.
Continue Pyridium as needed.
CAD/CABG -bypass x 3 vessels.
History of NSVT
Chronic heart failure reduced EF -stable.
Severe -s/p TAVR, March 2024.
Essential hypertension -stable.
Prostate cancer history
Underweight -BMI 18.
DNR -confirmed with patient.
Dispo -anticipate discharge home with [facility] when cleared by cardiology.
Updated patient's son Dar on the phone 12/07. All questions answered. Phone number is [phone].
Anticipated Discharge: 24 - 48 hours
Subjective/Interval History
-
Date of Service: December 08, 2024
Patient seen and examined. Complaining of burning penile pain.
Objective Data
-
Vital Signs:
Vital Signs
Temp Pulse Resp BP Pulse Ox
98.0 F 61 14 116/79 95
12/08/24 07:55 12/08/24 07:55 12/08/24 07:55 12/08/24 07:55 12/08/24 07:55
I&O
12/07/24 12/08/24 12/09/24
06:59 06:59 06:59
Intake Total 125 / 125 1280 / 1280
Output Total 310 / 310 650 / 650
Balance -185 / -185 630 / 630
Review of Systems
-
History Source: Patient
All other systems: Reviewed and negative
--- NOTE | 2024-12-08 12:36 | CM ---
CM spoke with patient's son, Dar, via phone # [phone]. He is the primary contact at this time
Patient lives @ [facility] Living w/ his , Fifi
Explained to son that PT recommended Home Health when discharged from the hospital
Son believes that the services can be provided by [facility]
Left a voice mail @ # [phone] for [facility] Executive to call [facility] in regards to facility's onsite PT/OT services
Plan: Discharge to home when medically stable with home health services
--- NOTE | 2024-12-08 15:27 | ITS.CL.PN ---
Transmitter Operator - Procedure Note
Procedure
Procedure Note:
Pocket Revision, debridement and relocation of Implantable Cardioverter Defibrillator:
Mr. 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
was found to have ICD infection.
Indications: BiV ICD pocket infection.
Date of the Procedure: 12/08/24
Pre-Operative Diagnosis: chronic systolic heart failure with pocket infection
Post-Operative Diagnosis: chronic systolic heart failure with pocket infection
Procedure Performed: Pocket revision, relocation and washout of the previous pocket
Performing Physician:
Corwin Bradley MD
Anesthesia:
See anesthesia records
Detailed Description of the Procedure:
The patient was identified using hospital identification and informed consent obtained for the procedure. The risks were explained including, but not limited to: Bleeding, infection, arrhythmia, stroke, vascular/cardiac/lung puncture, surgery,
pacemaker dependency/device malfunction. All questions were answered.
The patient was brought to the electrophysiology laboratory in stable condition in fasting state. Continuous electrocardiographic and hemodynamic monitoring was initiated. The initial rhythm was sinus rhythm with BiV pacing.
The Device was interrogated. The tachy therapies were turned off and remained off throughout the case. The therapies were turned on at the end of the case.
The procedure site was meticulously prepared with surgical scrub and allowed to dry with no pooling. Sterile draping was applied to cover the procedure site. The image intensifier was draped with sterile bag and positioned over the patient.
The left infraclavicular region was prepped and draped in the usual sterile fashion. Local anesthesia was administered subcutaneously using 1% lidocaine / Bupivacaine. Using the prior incision, the skin was incised again and the debris and the prior
sutures were removed. There were skin breakdown on the incision site. The abscess in the superficial skin was incised and yuri pus was noted. The area was drained and the superficial cultures obtained.
The incision was made deeper and the yuri pus was noted coming from the pocket. The aerobic and anaerobic cultures were again obtained from the deep pocket area.
There was frail tissue infected and was oozing blood and pus. The generator was removed from the pocket and the deep pocket and generator was also cultures.
The device and the leads were cleaned with Betadine solution and rubbed to the foam and let dry. The deep pocket and the tissue around the leads were also cleaned with Betadine. A Betadine soaked Kerlex was packed for debridement in the pocket and
later removed to clean the pocket.
A diluted hydrogen peroxide solution was poured into the pocket and the surrounding infected tissues and the device generator and the leads were rubbed cleaned and the foam was cleaned with towels and the wound was then rinsed with antibiotics
solution.
All the infected material was removed.
Once the pocket was cleaned, another pocket was created after local anesthesia. The new pocket was more medial to the previous pocket. The new pocket was irrigated and washed with antibiotics solution. The cleaned generator and the wire was placed
in the new pocket.
A TYRX pouch was placed in the new pocket. The Pocket was closed using 2-0 V Loc suture to separate it from the infected pocket.
There was oozing of pus and blood in the pocket with fragile surrounding tissue. A KIERA drain was placed in th pocket and the skin was closed using a 2-0 V loc suture.
Procedure End:
The procedure was tolerated well. A pressure bandage was applied to the incision area.
Estimated Blood loss:
5 cc
Specimens Removed:
Cultures obtained. Infected pocket with yuri pus in the superficial skin communicating into the deep pocket. .
Urine output:
None
Packs / Drains/ Tubes:
None
Instrument / Sponge Count Correct:
Yes
Complications of the Procedure:
None
Condition of Patient at Time of Transfer:
Hemodynamically stable with no neurological or vascular compromise.
Summary:
s/p pocket revision and incision and drainage with debridement with yuri infection of the ICD pocket, relocation of the pocket to a new site.
Results/Recommendations:
Antibiotics
Infection disease consult
KIERA drain to keep at least a week.
Replace / empty the bulb of drain if becomes full.
Corwin Bradley MD
Electrophysiology
--- NOTE | 2024-12-08 15:45 | PTCARENOTE ---
Pt received from the Hoisting Machine Operator via bed. Transport was w/o incident. Pt is awake, drowsy, easily arousable and answers questions appropriately. Left chest wall with guaze dressing/ medipore tape intact covering ICD area. KIERA drain from left upper chest
wall intact draining sanquinous fluid. VS: 97.0-61-16-133/66, pulse ox 100%RA. Resp. are easy. Pt instructed on plan of care. Pt verbalized understanding of instructions. Call cruz is within reach.
[2024-12-08] MEDS: NORCO 5/325 1 TABLET PO ×2 (17:50→22:55)
[2024-12-08] MEDS: ANCEF 10 IV (21:47)
[2024-12-08] MEDS: COLACE 100 MG PO (21:47)
[2024-12-08] MEDS: DIOVAN 40 MG PO (21:47)
[2024-12-08] MEDS: PACERONE 200 MG PO (21:47)
[2024-12-09] MEDS: MORPHINE SULFATE 1 MG IV (00:36)
[2024-12-09 03:15] VITALS: BP 116/69
[2024-12-09] MEDS: ANCEF 10 IV ×3 (05:13→21:47)
[2024-12-09 05:42] VITALS: BMI 18.3
[2024-12-09 07:24] LABS: Hematocrit 31.4 % (39.0-52.0); Mean Corp Hgb Conc. 31.8 g/dL (33.0-37.0); Mean Corpuscular Volume 104.7 fL (80.0-94.0); Platelet Count 111 10^3/uL (130-400); Red Cell Dist. Width 15.3 % (11.5-14.5)
[2024-12-09 07:30] VITALS: BP 138/62
[2024-12-09 07:58] LABS: Blood Urea Nitrogen 17 mg/dl (9-20); Calcium 8.3 mg/dl (8.4-10.2); Carbon Dioxide 26 mmol/L (22-30); Chloride 104 mmol/L (98-107); Estimated Creatinine Clearance 61 ml/min; Glucose 73 mg/dl (70-99); Magnesium 1.6 mg/dl (1.6-2.3); Potassium 3.9 mmol/L (3.5-5.1); Sodium 135 mmol/L (135-145); eGFR > 60.00
--- NOTE | 2024-12-09 08:23 | W.PN.URO.CBU ---
Today's Communication / Plan
-
AREVALO OUT SAT
Assessment / Plan
-
s/p laser prostea stone pt has irritative sxs with and without filley but i doubt pt can handle arevalo at home therefore rodríguez to remove arevalo sat
Diagnosis
-
Date of Service: December 09, 2024
-
Patient Diagnosis:
Post Op Day:
Patient Diagnosis:
Post Op Day:
Patient Diagnosis:
radiation prostatitis with stone retention
Post Op Day:
Subjective
-
MORE TOLERANT OF AREVALO NO HEMATURIA
Objective
-
Vital Signs
Temp Pulse Resp BP Pulse Ox
98.7 F 66 16 116/69 98
12/09/24 03:15 12/09/24 03:15 12/09/24 03:15 12/09/24 03:15 12/09/24 03:15
Intake and Output
12/08/24 12/09/24 12/10/24
06:59 06:59 06:59
Intake Total 1280 / 1280 970 / 970
Output Total 650 / 650 865 / 865
Balance 630 / 630 105 / 105
Intake:
Oral fluids 1280 / 1280 960 / 960
IV piggybacks
Output:
Drain Output (Total) 40 / 40
Left Chest Julian-Zavaleta 40 / 40
Urine, Arevalo 650 / 650 825 / 825
Laboratory Results
12/09/24 06:26
12/09/24 06:26
Review of Systems
-
: Dysuria and Difficulty Voiding
Physical Exam
-
General - well developed, well nourished, no acute distress
Chest - clear bilaterally
Abdomen - soft, non-tender, positive bowel sounds, no CVAT, no incisional pain or distention
Genitalia - normal
Rectal - normal
Skin - warm & dry with no rash
Neuro - AOx3, no motor deficits
Extremities - no clubbing, no cyanosis, no edema
Incision - clean, dry
Dressing - clean, dry, intact
Care Review
Data Reviewed
Discussed with: Nursing
[2024-12-09] MEDS: VITAMIN C 500 MG PO (10:40)
[2024-12-09] MEDS: VITAMIN B-12 1000 MCG PO (10:40)
[2024-12-09] MEDS: ASPIR LOW (ENTERIC COATED) 81 MG PO (10:41)
[2024-12-09] MEDS: MAGNESIUM OXIDE 200 MG PO ×2 (10:42→20:57)
[2024-12-09] MEDS: VITAMIN D3 (cholecalciferol) 50 MCG PO (10:45)
--- NOTE | 2024-12-09 11:08 | W.PN.HOSP.TC ---
Today's Communication/Plan
-
continue current care
Assessment / Plan
Assessment / Plan
Gen-AAOx3, NAD, cachectic
HEENT-NC, AT, anicteric, clear oral mm
Neck-supple
CV-reg, no M, +S1/S2
Lungs-clear B/L
Abd-soft, NT, ND
Ext-no edema
Musculoskeletal-no cyanosis, clubbing
Skin-defibrillator site with drain in place.
Neuro-grossly non-focal
Psych-calm, cooperative
ICD pocket infection -no signs or symptoms of sepsis. IV cefazolin per infectious disease. Wound culture positive for Staphylococcus aureus, sensitivity pending.
Patient underwent pocket revision, debridement and relocation of ICD 12/08. During the procedure, yuri pus was noted coming from the pocket site. All infected material was removed. Cultures were obtained.
New pocket located more medially was created and the defibrillator was relocated.
KIERA drain placed.
QTc prolongation -548ms on EKG today.
Bladder stone -underwent cystoscopy and stone extraction, 12/06. Expected hematuria noted. Maintain Brooks catheter on discharge, outpatient follow-up with Dr. Bar.
Continue Pyridium as needed.
Brooks catheter to come out Thursday morning per urology.
Thrombocytopenia -acute. 111k. Differential diagnosis of infection related versus ADR versus other. Monitor for now.
CAD/CABG -bypass x 3 vessels.
History of NSVT
Chronic heart failure reduced EF -stable.
Severe -s/p TAVR, March 2024.
Essential hypertension -stable.
Prostate cancer history
Underweight -BMI 18.
DNR -confirmed with patient.
Updated patient's son Dar on the phone today. All questions answered. Phone number is [phone].
Anticipated Discharge: > 48 hours
Subjective/Interval History
-
Date of Service: December 09, 2024
Patient seen and examined. Had some pain at the defibrillator site last night, now improved. No other complaints.
Objective Data
-
Labs:
Laboratory Results
12/09/24
06:26
WBC 10.6
Hgb
Hct 31.4 L
Plt Count 111 L D
Sodium 135
Potassium 3.9
Chloride 104
Carbon Dioxide 26
BUN 17
Creatinine 0.7
Glucose 73
Calcium 8.3 L
Vital Signs:
Vital Signs
Temp Pulse Resp BP Pulse Ox
97.7 F 64 16 138/62 97
12/09/24 07:30 12/09/24 07:30 12/09/24 07:30 12/09/24 07:30 12/09/24 07:30
I&O
12/08/24 12/09/24 12/10/24
06:59 06:59 06:59
Intake Total 1280 / 1280 970 / 970
Output Total 650 / 650 865 / 865
Balance 630 / 630 105 / 105
Review of Systems
-
History Source: Patient
All other systems: Reviewed and negative
--- NOTE | 2024-12-09 11:34 | W.PN.UPDATE ---
Update Note
Progress Note Update
EP Note
ICD site is good. No bleeding. Staph Aureus from skin of site 12/07. Surgical specimen 12/08/2024 is negative so far.
Cardiology will sign off.
F/u arranged.
[2024-12-09 11:40] VITALS: BP 127/64
--- NOTE | 2024-12-09 11:59 | CM ---
Addendum entered by Kelsie Bundy 12/09/24 13:23:
CM notified by Dr. Patel that patient may tentatively require IV ABX; awaiting final culture results.
Call placed to [facility] and requested to speak with the nursing winding department supervisor. I was transferred to [place] and left a voicemail requesting a call to discuss if the IV abx can be done at [facility] when Dar is discharged from the hospital.
Plan: Await update from [facility] regarding IV abx at time of discharge back to [facility].
Original Note:
CM following for discharge planning; pt is a resident of [facility]. has been attempting to contact [facility] to determine if they have a home care agency in their building.
2nd voicemail left at [phone] for [facility] to contact regarding services available in the facility, or if home care services need to be coordinated by prior to discharge.
--- NOTE | 2024-12-09 12:50 | W.PN.ID1 ---
Date of Service
Date of Service: December 09, 2024
Today's Communication
- Await OR cx pending
- Continue cefazolin for now.
- Anticipate long course of IV abx
Assessment / Plan
# ICD pocket infection
- ICD site skin abrasions/maceration wounds due to position of generator at axilla constant pressure from upper arm
- Superficial skin swabs S. aureus - although may not reflect true pathogens
- Blood cx's x 2 negative to date
- TTE no significant change
- 12/08/24 s/p washout of pocket site - noted to have blood and pus, relocation of same generator to new pocket medial to previous pockeet.
- OR cx pending
- Continue cefazolin for now.
- Anticipate long course of IV abx through eventual total ICD extraction and continue for another 2 to 4 weeks after new device implant.
# s/p bladder stone extraction 12/06
# Group B strep bacteruria - suspect contaminant/colonization
Group B strep not considered urine pathogen in non- individuals.
In any case, he is on cefazolin which is active against Group B strep.
# Conditions present on admission:
Hypertension
CAD status post CABG
Cardiomyopathy
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
Aortic stenosis status post TAVR 03/2024
Prostate cancer status post radiation
Cholecystectomy
Left THR
Spine surgeries x 2
Chief Complaint
-: Other (ICD site wounds)
Subjective / Review of Systems
No complaints today
Vital Signs / Physical Exam
Vital Signs
Vital Signs
Temp Pulse Resp BP Pulse Ox
98.2 F 71 16 127/64 96
12/09/24 11:40 12/09/24 11:40 12/09/24 11:40 12/09/24 11:40 12/09/24 11:40
Physical Exam
Constitutional: No Acute Distress and Comfortable
Cardiovascular: Regular Rate, S1/S2 and Other (left chest wall drain in place)
Pulmonary: Clear
Gastrointestinal: Soft, Non Tender and Non Distended
Genito-Urinary: Brooks and Hematuria
Extremities: Negative Edema
Objective Data
Lab Data
Lab Results
12/09/24 06:26
12/09/24 06:26
Estimated Creat Clear 61 ml/min 12/09/24 06:26
Total Bilirubin 0.7 mg/dl (0.2-1.3) 12/06/24 17:56
AST 24 U/L (17-59) 12/06/24 17:56
ALT 16 U/L (0-50) 12/06/24 17:56
Alkaline Phosphatase 93 U/L (38-126) 12/06/24 17:56
Most recent labs reviewed.
Micro Results:
12/08/24 13:47 Wound Culture - Preliminary
Ulcer Gram Stain - Preliminary
12/07/24 09:20 Wound Culture - Preliminary
Skin Surface Staphylococcus aureus
Gram Stain - Preliminary
12/07/24 09:20 Wound Culture - Preliminary
Skin Surface Staphylococcus aureus
Gram Stain - Preliminary
12/06/24 18:45 Blood Culture - Preliminary
Blood/Venous No Growth in 48 hours- Final report to follow
12/06/24 17:56 Blood Culture - Preliminary
Blood/Venous No Growth in 48 hours- Final report to follow
12/06/24 10:50 Urine Culture - Final
Urine Streptococcus agalactiae
[2024-12-09 15:05] VITALS: BP 116/54
[2024-12-09] MEDS: DIOVAN 40 MG PO (21:47)
[2024-12-09] MEDS: COLACE 100 MG PO (21:47)
[2024-12-09] MEDS: PACERONE 200 MG PO (21:48)
[2024-12-09 23:00] VITALS: BP 112/57
[2024-12-10 04:45] VITALS: BP 127/62
[2024-12-10 06:00] VITALS: BMI 18.5
[2024-12-10] MEDS: ANCEF 10 IV ×3 (06:45→21:10)
[2024-12-10 07:19] LABS: Hematocrit 29.1 % (39.0-52.0); Hemoglobin 9.6 g/dL (13.0-18.0); Mean Corp Hgb Conc. 33.0 g/dL (33.0-37.0); Mean Corpuscular Volume 102.8 fL (80.0-94.0); Nucleated Red Blood Cells % 0 % (-); Platelet Count 104 10^3/uL (130-400); Red Cell Dist. Width 14.8 % (11.5-14.5)
[2024-12-10] MEDS: VITAMIN D3 (cholecalciferol) 50 MCG PO (07:36)
[2024-12-10] MEDS: VITAMIN C 500 MG PO (07:36)
[2024-12-10] MEDS: VITAMIN B-12 1000 MCG PO (07:36)
[2024-12-10] MEDS: ASPIR LOW (ENTERIC COATED) 81 MG PO (07:36)
[2024-12-10] MEDS: MAGNESIUM OXIDE 200 MG PO ×2 (07:36→20:46)
[2024-12-10 08:00] VITALS: BP 146/66
--- NOTE | 2024-12-10 10:10 | W.PN.HOSP.TC ---
Today's Communication/Plan
-
Continue antibiotics
Await cultures
Monitor hemoglobin
Assessment / Plan
Assessment / Plan
Gen-AAOx3, NAD, cachectic
HEENT-NC, AT, anicteric, clear oral mm
Neck-supple
CV-reg, no M, +S1/S2
Lungs-clear B/L
Abd-soft, NT, ND
Ext-no edema
Musculoskeletal-no cyanosis, clubbing
Skin-defibrillator site with drain in place.
Neuro-grossly non-focal
Psych-calm, cooperative
ICD pocket infection -no signs or symptoms of sepsis. IV cefazolin per infectious disease. Blood cultures negative. Wound culture before ICD pocket change positive for MSSA.
Patient underwent pocket revision, debridement and relocation of ICD 12/08. During the procedure, yuri pus was noted coming from the pocket site. All infected material was removed. Cultures were obtained, now showing gram-negative bacilli.
New pocket located more medially was created and the defibrillator was relocated.
KIERA drain placed.
QTc prolongation -548ms on EKG 12/09. Potassium 3.9, magnesium 1.6.
Bladder stone -underwent cystoscopy and stone extraction, 12/06. Expected hematuria noted.
Continue Pyridium as needed.
Brooks catheter removed today, 12/10. Bladder scan protocol ordered.
Acute anemia -hemoglobin 9.6 this morning. Was 14.1 on 12/06. Unclear etiology. No obvious bleeding. Stool reported as brown. Monitor for now.
Thrombocytopenia -acute. 104k. Differential diagnosis of infection related versus ADR versus other. Monitor for now.
CAD/CABG -bypass x 3 vessels.
History of NSVT
Chronic heart failure reduced EF -stable.
Severe -s/p TAVR, March 2024.
Essential hypertension -stable.
Prostate cancer history
Underweight -BMI 18.
DNR -confirmed with patient.
PT/OT -Home health recommended.
Left a voicemail for patient's son Dar to call me back.
Anticipated Discharge: > 48 hours
Subjective/Interval History
-
Date of Service: December 10, 2024
Patient seen and examined. Complaining of discomfort around ICD site.
Objective Data
-
Labs:
Laboratory Results
12/10/24
06:26
WBC 7.9
Hgb 9.6 L D
Hct 29.1 L
Plt Count 104 L
Vital Signs:
Vital Signs
Temp Pulse Resp BP Pulse Ox
97.8 F 63 16 146/66 96
12/10/24 08:00 12/10/24 08:00 12/10/24 08:00 12/10/24 08:00 12/10/24 08:00
I&O
12/09/24 12/10/24 12/11/24
06:59 06:59 05:59
Intake Total 970 / 970 600 / 600
Output Total 865 / 865 625 / 625 20
Balance 105 / 105 -25 / -25 -20 / -20
Review of Systems
-
History Source: Patient
All other systems: Reviewed and negative
--- NOTE | 2024-12-10 11:06 | W.PN.URO.CBU ---
Today's Communication / Plan
-
expect frequncy uirgency but prefe not to replace muñoz as do not expect retention
Assessment / Plan
-
s/p laser prostea stone pt has irritative sxs with and without filley but i doubt pt can handle muñoz at home therefore rodríguez to remove muñoz sat observe for pain retention Am srinath sims not to replace muñoz
Diagnosis
-
Date of Service: December 10, 2024
-
Patient Diagnosis:
Post Op Day:
Patient Diagnosis:
Post Op Day:
Patient Diagnosis:
Post Op Day:
Patient Diagnosis:
radiation prostatitis with stone retention
Post Op Day:
Subjective
-
muñoz out not yet voided
Objective
-
Vital Signs
Temp Pulse Resp BP Pulse Ox
97.8 F 63 16 146/66 96
12/10/24 08:00 12/10/24 08:00 12/10/24 08:00 12/10/24 08:00 12/10/24 08:00
Intake and Output
12/09/24 12/10/24 12/11/24
06:59 06:59 05:59
Intake Total 970 / 970 600 / 600
Output Total 865 / 865 625 / 625
Balance 105 / 105 -25 / -25 -20 / -20
Intake:
Oral fluids 960 / 960 600 / 600
IV piggybacks
Output:
Drain Output (Total) 40
Left Chest Julian-Zavaleta
Urine, Muñoz 825 / 825 625 / 625
Laboratory Results
12/10/24 06:26
12/09/24 06:26
Review of Systems
-
: No Symptoms
Physical Exam
-
General - well developed, well nourished, no acute distress
Chest - clear bilaterally
Abdomen - soft, non-tender, positive bowel sounds, no CVAT, no incisional pain or distention
Genitalia - normal
Rectal - normal
Skin - warm & dry with no rash
Neuro - AOx3, no motor deficits
Extremities - no clubbing, no cyanosis, no edema
Incision - clean, dry
Dressing - clean, dry, intact
Counseling
-
leave muñoz out unless sig complaints of not voiding and distension later in day
Care Review
Data Reviewed
Discussed with: Nursing
--- NOTE | 2024-12-10 11:26 | W.PN.ID1 ---
Date of Service
Date of Service: December 10, 2024
Today's Communication
Continue current antibiotics.
Assessment / Plan
# ICD pocket infection
- ICD site skin abrasions/maceration wounds due to position of generator at axilla constant pressure from upper arm
- Superficial skin swabs S. aureus - although may not reflect true pathogens.
- Blood cx's x 2 negative to date
- TTE no significant change
- 12/08/24 s/p washout of pocket site - noted to have blood and pus, relocation of same generator to new pocket medial to previous pockeet.
- OR cx pending. Prelim culture with GNB's; ID and sensitivity pending
- Continue cefazolin for now.
- Anticipate long course of IV abx through eventual total ICD extraction and continue for another 2 to 4 weeks after new device implant.
# s/p bladder stone extraction 12/06
# Group B strep bacteruria - suspect contaminant/colonization
Group B strep not considered urine pathogen in non- individuals.
In any case, he is on cefazolin which is active against Group B strep.
# Conditions present on admission:
Hypertension
CAD status post CABG
Cardiomyopathy
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
Aortic stenosis status post TAVR 03/2024
Prostate cancer status post radiation
Cholecystectomy
Left THR
Spine surgeries x 2
Chief Complaint
-: Other (ICD site wounds)
Subjective / Review of Systems
Review of Systems: No Fever and No Chills
Vital Signs / Physical Exam
Vital Signs
Vital Signs
Temp Pulse Resp BP Pulse Ox
97.8 F 63 16 146/66 96
12/10/24 08:00 12/10/24 08:00 12/10/24 08:00 12/10/24 08:00 12/10/24 08:00
Physical Exam
Constitutional: No Acute Distress and Comfortable
Cardiovascular: Regular Rate, S1/S2 and Other (left chest wall drain in place)
Pulmonary: Clear
Gastrointestinal: Soft, Non Tender and Non Distended
Genito-Urinary: Brooks and Hematuria
Extremities: Negative Edema
Wound: Other (Left ACW with dressing in place; some strikethrough. KIERA with serosanguineous drainage)
Neurological: Awake and Alert
Psychological: Calm
Objective Data
Lab Data
Lab Results
12/10/24 06:26
12/09/24 06:26
Estimated Creat Clear 61 ml/min 12/09/24 06:26
Total Bilirubin 0.7 mg/dl (0.2-1.3) 12/06/24 17:56
AST 24 U/L (17-59) 12/06/24 17:56
ALT 16 U/L (0-50) 12/06/24 17:56
Alkaline Phosphatase 93 U/L (38-126) 12/06/24 17:56
Most recent labs reviewed.
Micro Results:
12/08/24 13:47 Wound Culture - Preliminary
Ulcer Gram negative bacilli
Gram Stain - Preliminary
12/07/24 09:20 Wound Culture - Final
Skin Surface S aureus-Methicillin Sensitive
Gram Stain - Final
12/07/24 09:20 Wound Culture - Final
Skin Surface S aureus-Methicillin Sensitive
Gram Stain - Final
12/06/24 18:45 Blood Culture - Preliminary
Blood/Venous No Growth in 72 hours- Final report to follow
12/06/24 17:56 Blood Culture - Preliminary
Blood/Venous No Growth in 72 hours- Final report to follow
12/06/24 10:50 Urine Culture - Final
Urine Streptococcus agalactiae
[2024-12-10 11:40] VITALS: BP 124/66
[2024-12-10 15:10] VITALS: BP 128/68
[2024-12-10 19:19] VITALS: BP 153/75
[2024-12-10] MEDS: COLACE 100 MG PO (21:09)
[2024-12-10] MEDS: DIOVAN 40 MG PO (21:09)
[2024-12-10] MEDS: PACERONE 200 MG PO (21:09)
[2024-12-10 23:50] VITALS: BP 117/59
[2024-12-11 04:18] VITALS: BP 132/63
--- NOTE | 2024-12-11 05:36 | PTCARENOTE ---
Pt voiding throughout shift, spilled urinal 2x on Claviden. Educated on asking for assistance but reports it comes on suddenly. Pt also wth difficulty with placement due to left shoulder pain @ incision site.
[2024-12-11] MEDS: ANCEF 10 IV (06:00)
[2024-12-11 06:02] VITALS: BMI 18.7
--- NOTE | 2024-12-11 06:17 | PTCARENOTE ---
pt urine brown, continues with urgency and frequency.
[2024-12-11 07:00] VITALS: BP 128/68
[2024-12-11 07:22] LABS: Hematocrit 29.5 % (39.0-52.0); Hemoglobin 9.9 g/dL (13.0-18.0); Mean Corp Hgb Conc. 33.6 g/dL (33.0-37.0); Mean Corpuscular Volume 99.3 fL (80.0-94.0); Nucleated Red Blood Cells % 0 % (-); Platelet Count 110 10^3/uL (130-400); Red Cell Dist. Width 14.6 % (11.5-14.5)
[2024-12-11] MEDS: MAGNESIUM OXIDE 200 MG PO ×2 (09:30→19:54)
[2024-12-11] MEDS: VITAMIN B-12 1000 MCG PO (09:30)
[2024-12-11] MEDS: ASPIR LOW (ENTERIC COATED) 81 MG PO (09:30)
[2024-12-11] MEDS: VITAMIN C 500 MG PO (09:30)
[2024-12-11] MEDS: VITAMIN D3 (cholecalciferol) 50 MCG PO (09:30)
[2024-12-11 11:00] VITALS: BP 136/61
--- NOTE | 2024-12-11 11:23 | W.PN.URO.CBU ---
Today's Communication / Plan
-
kreep muñoz out consider condom cath
Assessment / Plan
-
s/p laser prostea stone pt has irritative sxs with and without muñoz will keep muñoz out but will give pt option to replace muñoz
Diagnosis
-
Date of Service: December 11, 2024
-
Patient Diagnosis:
Post Op Day:
Patient Diagnosis:
Post Op Day:
Patient Diagnosis:
Post Op Day:
Patient Diagnosis:
Post Op Day:
Patient Diagnosis:
radiation prostatitis with stone retention
Post Op Day:
Subjective
-
as expecyed stil frquncy urgency
Objective
-
Vital Signs
Temp Pulse Resp BP Pulse Ox
97.8 F 69 16 136/61 98
12/11/24 11:00 12/11/24 11:00 12/11/24 11:00 12/11/24 11:00 12/11/24 11:00
Intake and Output
12/10/24 12/11/24 12/12/24
06:59 05:59 06:59
Intake Total 600 / 600 260 / 260
Output Total 625 / 625 340 / 340
Balance -25 / -25 -80 / -80
Intake:
Oral fluids 600 / 600 240 / 240
IV piggybacks 20 / 20
Output:
Drain Output (Total) 40 / 40
Left Chest Julian-Zavaleta 40 / 40
Urine, Muñoz 625 / 625
Urine, Voided 300 / 300
Other:
How many times incontinent 1
MODERATE amount urine
Laboratory Results
12/11/24 05:49
12/09/24 06:26
Review of Systems
-
: Frequency and Urgency
Physical Exam
-
General - well developed, well nourished, no acute distress
Chest - clear bilaterally
Abdomen - soft, non-tender, positive bowel sounds, no CVAT, no incisional pain or distention
Genitalia - normal
Rectal - normal
Skin - warm & dry with no rash
Neuro - AOx3, no motor deficits
Extremities - no clubbing, no cyanosis, no edema
Incision - clean, dry
Dressing - clean, dry, intact
Counseling
-
consider condo, cath
Care Review
Data Reviewed
Discussed with: Nursing
--- NOTE | 2024-12-11 12:44 | W.PN.ID1 ---
Date of Service
Date of Service: December 11, 2024
Today's Communication
Continue antibiotics. Transition to cefepime
Assessment / Plan
# ICD pocket infection
- ICD site skin abrasions/maceration wounds due to position of generator at axilla constant pressure from upper arm
- Superficial skin swabs S. aureus
- Blood cx's x 2 negative to date
- TTE no significant change
- 12/08/24 s/p washout of pocket site - noted to have blood and pus, relocation of same generator to new pocket medial to previous pocket.
- OR cx with Klebsiella oxytoca x 2
- Transition to cefepime.
- Anticipate long course of IV abx through eventual total ICD extraction, and continue for another 2 to 4 weeks after new device implant.
# s/p bladder stone extraction 12/06
# Group B strep bacteruria - suspect contaminant/colonization
Group B strep not considered urine pathogen in non- individuals.
# Conditions present on admission:
Hypertension
CAD status post CABG
Cardiomyopathy
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
Aortic stenosis status post TAVR 03/2024
Prostate cancer status post radiation
Cholecystectomy
Left THR
Spine surgeries x 2
Chief Complaint
-: Other (ICD site wounds)
Subjective / Review of Systems
Review of Systems: No Fever and No Chills
Vital Signs / Physical Exam
Vital Signs
Vital Signs
Temp Pulse Resp BP Pulse Ox
97.8 F 69 16 136/61 98
12/11/24 11:00 12/11/24 11:00 12/11/24 11:00 12/11/24 11:12/11/24 11:00
Physical Exam
Constitutional: No Acute Distress, Comfortable and Chronically Ill
Cardiovascular: Regular Rate, S1/S2 and Other (left chest wall drain in place)
Pulmonary: Clear
Gastrointestinal: Soft, Non Tender and Non Distended
Genito-Urinary: Brooks and Hematuria
Extremities: Negative Edema
Wound: Other (Left ACW with dressing in place; some strikethrough. KIERA with serosanguineous drainage)
Neurological: Other (Resting comfortably)
Psychological: Calm
Objective Data
Lab Data
Lab Results
12/11/24 05:49
12/09/24 06:26
Estimated Creat Clear 61 ml/min 12/09/24 06:26
Total Bilirubin 0.7 mg/dl (0.2-1.3) 12/06/24 17:56
AST 24 U/L (17-59) 12/06/24 17:56
ALT 16 U/L (0-50) 12/06/24 17:56
Alkaline Phosphatase 93 U/L (38-126) 12/06/24 17:56
Most recent labs reviewed.
Micro Results:
12/08/24 13:47 Wound Culture - Final
Ulcer Klebsiella oxytoca
Klebsiella oxytoca#2
Gram Stain - Final
12/06/24 18:45 Blood Culture - Preliminary
Blood/Venous No Growth in 4 days- Final report to follow
12/06/24 17:56 Blood Culture - Preliminary
Blood/Venous No Growth in 4 days- Final report to follow
12/07/24 09:20 Wound Culture - Final
Skin Surface S aureus-Methicillin Sensitive
Gram Stain - Final
12/07/24 09:20 Wound Culture - Final
Skin Surface S aureus-Methicillin Sensitive
Gram Stain - Final
12/06/24 10:50 Urine Culture - Final
Urine Streptococcus agalactiae
Wound/abscess/other Cult Final 12/08/24
Few Klebsiella oxytoca Strain #1
Few Klebsiella oxytoca Strain #2
Organism 1 Klebsiella oxytoca
Organism 2 Klebsiella oxytoca#2
K.OXYTOCA K.OXYTOCA#2
M.I.C. RX M.I.C. RX
--------- --- --------- ---
Amoxicillin/Potas. Clavulanate <=8/4 S <=8/4 S
Ampicillin >16 R >16 R
Ampicillin/Sulbactam 16/8 I 16/8 I
Aztreonam <=4 S <=4 S
Cefazolin 8 R 16 R
Cefepime <=2 S <=2 S
Ceftazidime <=1 S <=1 S
Ceftriaxone <=1 S <=1 S
Ertapenem <=0.5 S <=0.5 S
Ciprofloxacin <=0.25 S <=0.25 S
Gentamicin <=2 S <=2 S
Meropenem <=1 S <=1 S
Piperacillin/Tazobactam <=8 S <=8 S
Tetracycline <=4 S <=4 S
Tobramycin <=2 S <=2 S
Trimethoprim/Sulfamethoxazole <=2/38 S <=2/38 S
Wound/abscess/other Cult Final 12/07/24
Many S aureus-Methicillin Sensitive
Many Diptheroids
Organism 1 S aureus-Methicillin Sensitive
1. S aureus-Methicillin Sensitive
M.I.C. RX
--------- ---
Amoxicillin/Potas. Clavulanate <=4/2 S
Ampicillin 8 R
Clindamycin <=0.5 S
Gentamicin <=4 S
Erythromycin <=0.5 S
Levofloxacin <=1 S
Oxacillin <=0.25 S
Tetracycline <=4 S
Trimethoprim/Sulfamethoxazole <=0.5/9.5 S
Vancomycin 1 S
Care Review
Plan reviewed with: Physician (Hospitalist)
--- NOTE | 2024-12-11 12:51 | W.PN.HOSP.TC ---
Today's Communication/Plan
-
Bowel regimen
Assessment / Plan
Assessment / Plan
Gen-AAOx3, NAD, cachectic
HEENT-NC, AT, anicteric, clear oral mm
Neck-supple
CV-reg, no M, +S1/S2
Lungs-clear B/L
Abd-soft, NT, ND
Ext-no edema
Musculoskeletal-no cyanosis, clubbing
Skin-defibrillator site with drain in place.
Neuro-grossly non-focal
Psych-calm, cooperative
ICD pocket infection -no signs or symptoms of sepsis. Blood cultures negative. Wound culture before ICD pocket change positive for MSSA.
Patient underwent pocket revision, debridement and relocation of ICD 12/08. During the procedure, yuri pus was noted coming from the pocket site. All infected material was removed. Cultures were obtained, now showing Klebsiella oxytocin or, 2
serotypes. Antibiotics changed to cefepime by ID.
New pocket located more medially was created and the defibrillator was relocated.
KIERA drain placed.
QTc prolongation -548ms on EKG 12/09. Potassium 3.9, magnesium 1.6. Will recheck in the morning.
Bladder stone -underwent cystoscopy and stone extraction, 12/06. Expected hematuria noted.
Continue Pyridium as needed.
Brooks catheter removed 12/10. Bladder scan protocol ordered.
Acute anemia -hemoglobin 9.9 this morning, relatively stable. Was 14.1 on 12/06. Perhaps he was hemoconcentrated on admission. Unclear etiology for acute anemia. No obvious bleeding. Stool reported as brown. Check anemia labs.
Thrombocytopenia -acute. 110k. Differential diagnosis of infection related versus ADR versus other. Monitor for now.
Constipation -bowel regimen ordered.
CAD/CABG -bypass x 3 vessels.
History of NSVT
Chronic heart failure reduced EF -stable.
Severe -s/p TAVR, March 2024.
Essential hypertension -stable.
Prostate cancer history
Underweight -BMI 18.
DNR -confirmed with patient.
PT/OT -Home health recommended.
Dispo -possible discharge Thursday if cleared by ID.
Left a voicemail for patient's son Dar to call me back.
Anticipated Discharge: Within 24 hours
Subjective/Interval History
-
Date of Service: December 11, 2024
Patient seen and examined, complaining of constipation.
Objective Data
-
Labs:
Laboratory Results
12/11/24
05:49
WBC 7.2
Hgb 9.9 L
Hct 29.5 L
Plt Count 110 L
Vital Signs:
Vital Signs
Temp Pulse Resp BP Pulse Ox
97.8 F 69 16 136/61 98
12/11/24 11:00 12/11/24 11:00 12/11/24 11:00 12/11/24 11:00 12/11/24 11:00
I&O
12/10/24 12/11/24 12/12/24
06:59 05:59 06:59
Intake Total 600 / 600 260 / 260
Output Total 625 / 625 340 / 340
Balance -25 / -25 -80 / -80
Review of Systems
-
History Source: Patient
All other systems: Reviewed and negative
[2024-12-11] MEDS: STERILE WATER FOR INJECTION 10 ML IV ×2 (13:08→18:15)
[2024-12-11] MEDS: MIRALAX 17 GRAMS PO (13:08)
[2024-12-11] MEDS: MAXIPIME 1000 MG IV ×2 (13:08→18:15)
[2024-12-11 13:48] LABS: Reticulocyte Count 1.8 % (0.4-2.8)
[2024-12-11 13:52] LABS: Iron 43 ug/dl (49-181)
[2024-12-11 14:01] LABS: Total Iron Binding Capacity 201 ug/dl (261-462)
[2024-12-11 14:29] LABS: Ferritin 262.0 ng/ml (17.9-464.0)
[2024-12-11 15:00] VITALS: BP 121/53
[2024-12-11 15:00] LABS: Folate 3.3 ng/ml (2.76-20); Vitamin B12 766 pg/ml (239-931)
[2024-12-11 19:00] VITALS: BP 109/61
[2024-12-11] MEDS: COLACE 100 MG PO (19:54)
[2024-12-11] MEDS: PACERONE 200 MG PO (22:14)
[2024-12-11] MEDS: DIOVAN 40 MG PO (22:16)
[2024-12-11 23:00] VITALS: BP 125/68
[2024-12-12] MEDS: MAXIPIME 1000 MG IV ×2 (00:14→05:27)
[2024-12-12] MEDS: STERILE WATER FOR INJECTION 10 ML IV ×2 (00:14→05:27)
[2024-12-12] MEDS: NORCO 5/325 1 TABLET PO (03:10)
[2024-12-12 03:19] VITALS: BP 133/67
[2024-12-12 05:43] VITALS: BMI 18.3
[2024-12-12 07:15] LABS: Hematocrit 28.3 % (39.0-52.0); Hemoglobin 9.5 g/dL (13.0-18.0); Mean Corp Hgb Conc. 33.6 g/dL (33.0-37.0); Mean Corpuscular Volume 99.6 fL (80.0-94.0); Nucleated Red Blood Cells % 0 % (-); Platelet Count 115 10^3/uL (130-400); Red Cell Dist. Width 14.6 % (11.5-14.5)
[2024-12-12 07:34] LABS: Blood Urea Nitrogen 14 mg/dl (9-20); Calcium 8.6 mg/dl (8.4-10.2); Carbon Dioxide 28 mmol/L (22-30); Chloride 104 mmol/L (98-107); Estimated Creatinine Clearance 71 ml/min; Glucose 82 mg/dl (70-99); Potassium 4.1 mmol/L (3.5-5.1); Sodium 137 mmol/L (135-145); eGFR > 60.00
[2024-12-12 07:55] VITALS: BP 154/83
[2024-12-12] MEDS: MAGNESIUM OXIDE 200 MG PO ×2 (08:49→20:35)
[2024-12-12] MEDS: COLACE 100 MG PO ×2 (08:49→20:34)
[2024-12-12] MEDS: VITAMIN B-12 1000 MCG PO (08:49)
[2024-12-12] MEDS: ASPIR LOW (ENTERIC COATED) 81 MG PO (08:49)
[2024-12-12] MEDS: MIRALAX 17 GRAMS PO (08:50)
[2024-12-12] MEDS: VITAMIN C 500 MG PO (08:50)
[2024-12-12] MEDS: VITAMIN D3 (cholecalciferol) 50 MCG PO (08:50)
--- NOTE | 2024-12-12 09:44 | W.PN.ID1 ---
Date of Service
Date of Service: December 12, 2024
Today's Communication
Replace cefepime with Ertapenem.
See below.
Assessment / Plan
# ICD pocket infection
- ICD site skin abrasions/maceration wounds due to position of generator at axilla constant pressure from upper arm
- Superficial skin swabs S. aureus
- Blood cx's x 2 negative to date
- TTE no significant change
- 12/08/24 s/p washout of pocket site - noted to have blood and pus, relocation of same generator to new pocket medial to previous pocket.
- OR cx with Klebsiella oxytoca x 2
- Simplify abx to Ertapenem 1g IV q24hr through tentative end date 01/21/2025.
Per Dr. Gaines, eventual total ICD extraction, timing TBD.
Continue IV abx for at least 2 more weeks after extraction, placement of new device.
- Ordered PICC
- Infusion sheet submitted to case finishing machine adjuster.
# s/p bladder stone extraction 12/06
# Group B strep bacteruria - suspect contaminant/colonization
Group B strep not considered urine pathogen in non- individuals.
# Conditions present on admission:
Hypertension
CAD status post CABG
Cardiomyopathy
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
Aortic stenosis status post TAVR 03/2024
Prostate cancer status post radiation
Cholecystectomy
Left THR
Spine surgeries x 2
Chief Complaint
-: Other (ICD site wounds)
Subjective / Review of Systems
Grandson at bedside.
Pt without new complaints.
Vital Signs / Physical Exam
Vital Signs
Vital Signs
Temp Pulse Resp BP Pulse Ox
97.8 F 96 16 154/83 96
12/12/24 07:55 12/12/24 07:55 12/12/24 07:55 12/12/24 07:55 12/12/24 07:55
Physical Exam
Constitutional: No Acute Distress and Cachetic
Cardiovascular: Regular Rate, S1/S2 and Other (left chesst wall ICD site with drain)
Pulmonary: Clear
Gastrointestinal: Non Tender and Non Distended
Genito-Urinary: Hematuria; Negative CVA Tenderness
Extremities: Negative Edema
Neurological: AO x 3
Objective Data
Lab Data
Lab Results
12/12/24 06:57
12/12/24 06:57
Estimated Creat Clear 71 ml/min 12/12/24 06:57
Total Bilirubin 0.7 mg/dl (0.2-1.3) 12/06/24 17:56
AST 24 U/L (17-59) 12/06/24 17:56
ALT 16 U/L (0-50) 12/06/24 17:56
Alkaline Phosphatase 93 U/L (38-126) 12/06/24 17:56
Most recent labs reviewed.
Micro Results:
12/06/24 18:45 Blood Culture - Final
Blood/Venous No Growth - Final Report
12/06/24 17:56 Blood Culture - Final
Blood/Venous No Growth - Final Report
12/08/24 13:47 Wound Culture - Final
Ulcer Klebsiella oxytoca
Klebsiella oxytoca#2
Gram Stain - Final
12/07/24 09:20 Wound Culture - Final
Skin Surface S aureus-Methicillin Sensitive
Gram Stain - Final
12/07/24 09:20 Wound Culture - Final
Skin Surface S aureus-Methicillin Sensitive
Gram Stain - Final
12/06/24 10:50 Urine Culture - Final
Urine Streptococcus agalactiae
Wound/abscess/other Cult Final 12/08/24
Few Klebsiella oxytoca Strain #1
Few Klebsiella oxytoca Strain #2
Organism 1 Klebsiella oxytoca
Organism 2 Klebsiella oxytoca#2
K.OXYTOCA K.OXYTOCA#2
M.I.C. RX M.I.C. RX
--------- --- --------- ---
Amoxicillin/Potas. Clavulanate <=8/4 S <=8/4 S
Ampicillin >16 R >16 R
Ampicillin/Sulbactam 16/8 I 16/8 I
Aztreonam <=4 S <=4 S
Cefazolin 8 R 16 R
Cefepime <=2 S <=2 S
Ceftazidime <=1 S <=1 S
Ceftriaxone <=1 S <=1 S
Ertapenem <=0.5 S <=0.5 S
Ciprofloxacin <=0.25 S <=0.25 S
Gentamicin <=2 S <=2 S
Meropenem <=1 S <=1 S
Piperacillin/Tazobactam <=8 S <=8 S
Tetracycline <=4 S <=4 S
Tobramycin <=2 S <=2 S
Trimethoprim/Sulfamethoxazole <=2/38 S <=2/38 S
Wound/abscess/other Cult Final 12/07/24
Many S aureus-Methicillin Sensitive
Many Diptheroids
Organism 1 S aureus-Methicillin Sensitive
1. S aureus-Methicillin Sensitive
M.I.C. RX
--------- ---
Amoxicillin/Potas. Clavulanate <=4/2 S
Ampicillin 8 R
Clindamycin <=0.5 S
Gentamicin <=4 S
Erythromycin <=0.5 S
Levofloxacin <=1 S
Oxacillin <=0.25 S
Tetracycline <=4 S
Trimethoprim/Sulfamethoxazole <=0.5/9.5 S
Vancomycin 1 S
--- NOTE | 2024-12-12 10:03 | W.PN.URO.CBU ---
Today's Communication / Plan
-
plasce condom cath if pt does not like have him remove
Assessment / Plan
-
s/p laser prostea stone pt has irritative sxs with and without muñoz will keep muñoz out but will give pt option to replace muñoz for now comdom cath but pt will have penile pain with or without condom
Diagnosis
-
Date of Service: December 12, 2024
-
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
Post Op Day:
Patient Diagnosis:
Post Op Day:
Patient Diagnosis:
Post Op Day:
Patient Diagnosis:
Post Op Day:
Patient Diagnosis:
Post Op Day:
Patient Diagnosis:
radiation prostatitis with stone retention
Post Op Day:
Subjective
-
penis pain frqency prefers at this time condom cath
Objective
-
Vital Signs
Temp Pulse Resp BP Pulse Ox
97.8 F 96 16 154/83 96
12/12/24 07:55 12/12/24 07:55 12/12/24 07:55 12/12/24 07:55 12/12/24 07:55
Intake and Output
12/11/24 12/12/24 12/13/24
05:59 06:59 06:59
Intake Total 260 / 260 840 / 840
Output Total 340 / 340 640 / 640
Balance -80 / -80 200 / 200
Intake:
Oral fluids 240 / 240 840 / 840
IV piggybacks 20 / 20
Output:
Drain Output (Total) 40 / 40 40 / 40
Left Chest Julian-Zavaleta 40 / 40 40 / 40
Urine, Voided 300 / 300 600 / 600
Other:
How many times incontinent 1
SMALL amount urine
How many times incontinent 1 1
MODERATE amount urine
Laboratory Results
12/12/24 06:57
12/12/24 06:57
Review of Systems
-
: Dysuria and Bleeding
Physical Exam
-
General - well developed, well nourished, no acute distress
Chest - clear bilaterally
Abdomen - soft, non-tender, positive bowel sounds, no CVAT, no incisional pain or distention
Genitalia - normal
Rectal - normal
Skin - warm & dry with no rash
Neuro - AOx3, no motor deficits
Extremities - no clubbing, no cyanosis, no edema
Incision - clean, dry
Dressing - clean, dry, intact
Care Review
Data Reviewed
Discussed with: Nursing
--- NOTE | 2024-12-12 11:14 | CM ---
Spoke with Sergey at [facility]. Tamara said they can accept patient if family given nurse daily in [facility] room.
Spoke with Wing son [phone] he said that there are no family members that can administer IV abx daily.
Offered SNF placement Wing said he would look up SNF but asked for some SNF to be placed.
He will need Ertapanem 1 g IV every 24 hours till 01/21/25.
He will need auth.
Wing son said patient is due for Macular Degeneration meds today . notified
PLAN Locate SNf obtained auth
[2024-12-12 11:49] VITALS: BP 138/78
--- NOTE | 2024-12-12 12:43 | W.PN.CD ---
Today's Communication / Plan
-
- Antibiotics as per ID
- Brooks care as per Urology
- Plan for conservative management and re-evaluate in 3-4 months for recurrence of infection
- KIERA drain to be removed in 3-4 days.
Impression / Plan
-
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
Primary Flow Match Sofa Cutter: Dr. Reardon
Device infection - Medtronic BiV ICD
- The infected hardware was cleaned and placed in a new pocket and is considered clean now
- The old pocket is from the new pocket and is infected - growing Klebsiella Oxytoca
- The MSSA was from the skin and may have not been involved in the pocket infection.
- s/p relocation of the ICD generator to give a chance with conservative measures.
- KIERA drain in the old pocket - slow oozing blood. 10-3- cc per day.
- Likely will remove the KIERA drain later this week.
- The new pocket is considered clean now.
- ID to continue IV antibiotics for 3-4 weeks
- Would recommend 3-4 months of suppressive antibiotics likely Doxycycline.
- Will stop antibiotics in 3-4 months and if infection recurs then will have to extract the whole system.
- Interrogation 12/01/2024: AP 78%, R/L VIDEO PRODUCTION COORDINATOR 93/99%. Not dependent on the pacemaker.
Cystoscopy with stone removal
Dilated cardiomyopathy (LVEF 25%)
- He does not appear volume overloaded on exam
- GDMT is limited due to side effects (Farxiga, metoprolol, lisinopril)
- Update echocardiogram 12/07/24 - LVEF 25%
- Trend daily weigh, I/Os
Coronary artery disease s/p CABG
- Stable without chest pain
- ASA had to be held in the past due to thrombocytopenia, follow CBC
Severe aortic stenosis s/p TAVR
-Peak/mean gradients 12/7 mmHg without AR on prior TTE
- Echocardiogram as above - TTE 12/07 - gradient 14/8 mmHg.
NSVT, not on beta-diana due to side effects, continue amiodarone
LBBB
Physical Exam
Vital Signs/Labs
Vital Signs
Temp Pulse Resp BP Pulse Ox
97.7 F 82 16 138/78 96
12/12/24 11:49 12/12/24 11:49 12/12/24 11:49 12/12/24 11:49 12/12/24 11:49
12/11/24 12/12/24 12/13/24
05:59 06:59 06:59
Actual Weight 58.967 kg 57.742 kg
12/12/24 06:57
12/12/24 06:57
Magnesium 1.6 mg/dl (1.6-2.3) 12/09/24 06:26
Physical Exam
Constitutional: No acute distress and Comfortable
EENT: Anicteric and Moist mucous membranes
Cardiovascular: Rhythm & rate is regular, Pedal edema is absent and JVD pressure is normal
Respiratory: Respiratory effort normal, Lungs clear to auscul. and Wheeze Absent
GI: Soft, Non tender and Normal bowel sounds
Neuro/Psych: Alert, Oriented, AO x 3 and Motor deficits absent
Other: Skin and Cardiac Device Site
Data Reviewed
-
Date of Service: December 12, 2024
Medical Decision Making: Reviewed Test Results, Test Interpretation and Review of Case with other Provider
EKG: Tracing Personally Visualized and interpreted
Echo: Tracing Personally Visualized and interpreted
X-Ray/CT/US/MRI/NUC/PET: Image Personally Visualized and interpreted
Labs: Labs Reviewed by me
Old Records: Reviewed
--- NOTE | 2024-12-12 13:25 | W.PN.HOSP.TC ---
Today's Communication/Plan
-
Ertapenem
Condom Cath
KIERA drain removal as per cards
CM on board- disposition planning
Assessment / Plan
Assessment / Plan
Gen-AAOx3, NAD, cachectic
HEENT-NC, AT, anicteric, clear oral mm
Neck-supple
CV-reg, no M, +S1/S2
Lungs-clear B/L
Abd-soft, NT, ND
Ext-no edema
Musculoskeletal-no cyanosis, clubbing
Skin-defibrillator site with drain in place.
Neuro-grossly non-focal
Psych-calm, cooperative
#ICD pocket infection -no signs or symptoms of sepsis. Blood cultures negative. Wound culture before ICD pocket change positive for MSSA.
Patient underwent pocket revision, debridement and relocation of ICD 12/08. During the procedure, yuri pus was noted coming from the pocket site. All infected material was removed. Cultures were obtained, now showing Klebsiella oxytocin or, 2
serotypes. Antibiotics changed to cefepime by ID.
New pocket located more medially was created and the defibrillator was relocated.
KIERA drain placed. - remove in 3-4 days as per EP
-IV abx - anticipate multiple weeks; await final ID recs
-Ertapenem 1g IV q24hr through tentative end date 01/21/2025.
#QTc prolongation -548ms on EKG 12/09. Potassium 3.9, magnesium 1.6. Will recheck in the morning.
#Bladder stone -underwent cystoscopy and stone extraction, 12/06. Expected hematuria noted.
Continue Pyridium as needed.
Brooks catheter removed 12/10. Bladder scan protocol ordered.
Condom cath
Acute anemia -hemoglobin 9.9 this morning, relatively stable. Was 14.1 on 12/06. Perhaps he was hemoconcentrated on admission. Unclear etiology for acute anemia. No obvious bleeding. Stool reported as brown. Check anemia labs.
Thrombocytopenia -acute. 110k. Differential diagnosis of infection related versus ADR versus other. Monitor for now.
Constipation -bowel regimen ordered.
CAD/CABG -bypass x 3 vessels.
History of NSVT
Chronic heart failure reduced EF -stable.
Severe -s/p TAVR, March 2024.
Essential hypertension -stable.
Prostate cancer history
Underweight -BMI 18.
DNR -confirmed with patient.
PT/OT -Home health recommended.
Dispo -SNF placement; Await placement; CM aware
Anticipated Discharge: 24 - 48 hours
Subjective/Interval History
-
Date of Service: December 12, 2024
No acute events overnight
Objective Data
-
Labs:
Laboratory Results
12/12/24
06:57
WBC 6.9
Hgb 9.5 L
Hct 28.3 L
Plt Count 115 L
Sodium 137
Potassium 4.1
Chloride 104
Carbon Dioxide 28
BUN 14
Creatinine 0.6 L
Glucose 82
Calcium 8.6
Vital Signs:
Vital Signs
Temp Pulse Resp BP Pulse Ox
97.7 F 82 16 138/78 96
12/12/24 11:49 12/12/24 11:49 12/12/24 11:49 12/12/24 11:49 12/12/24 11:49
I&O
12/11/24 12/12/24 12/13/24
05:59 06:59 06:59
Intake Total 260 / 260 840 / 840
Output Total 340 / 340 640 / 640
Balance -80 / -80 200 / 200
Review of Systems
-
History Source: Patient
All other systems: Reviewed and negative
Data Reviewed
-
Labs: Labs Reviewed by me
[2024-12-12] MEDS: INVANZ 60 MG IV (13:29)
[2024-12-12 15:47] VITALS: BP 122/65
[2024-12-12 19:15] VITALS: BP 115/61
[2024-12-12] MEDS: NON-FORMULARY ITEM 1 UNIT PO (20:36)
[2024-12-12] MEDS: PACERONE 200 MG PO (21:42)
[2024-12-12] MEDS: DIOVAN 40 MG PO (21:43)
[2024-12-12 23:27] VITALS: BP 121/66
[2024-12-13] VITALS (7 sets, daily range): BP systolic 112–145; BP diastolic 53–70; BMI 18.4
[2024-12-13] MEDS: NORCO 5/325 1 TABLET PO (01:46)
[2024-12-13] MEDS: MORPHINE SULFATE 1 MG IV (03:33)
[2024-12-13] MEDS: NORCO 5/325 2 TABLET PO (05:46)
[2024-12-13 05:54] LABS: Hematocrit 28.3 % (39.0-52.0); Hemoglobin 9.7 g/dL (13.0-18.0); Mean Corp Hgb Conc. 34.3 g/dL (33.0-37.0); Mean Corpuscular Volume 99.3 fL (80.0-94.0); Platelet Count 117 10^3/uL (130-400); Red Cell Dist. Width 14.7 % (11.5-14.5)
[2024-12-13 06:08] LABS: Blood Urea Nitrogen 14 mg/dl (9-20); Calcium 8.9 mg/dl (8.4-10.2); Carbon Dioxide 29 mmol/L (22-30); Chloride 102 mmol/L (98-107); Estimated Creatinine Clearance 71 ml/min; Glucose 83 mg/dl (70-99); Magnesium 1.5 mg/dl (1.6-2.3); Potassium 4.1 mmol/L (3.5-5.1); Sodium 136 mmol/L (135-145); eGFR > 60.00
[2024-12-13] MEDS: MAGNESIUM SULFATE 100 IV (09:01)
[2024-12-13] MEDS: MAGNESIUM OXIDE 200 MG PO ×2 (09:12→19:56)
[2024-12-13] MEDS: VITAMIN C 500 MG PO (09:13)
[2024-12-13] MEDS: ASPIR LOW (ENTERIC COATED) 81 MG PO (09:13)
[2024-12-13] MEDS: VITAMIN B-12 1000 MCG PO (09:13)
[2024-12-13] MEDS: VITAMIN D3 (cholecalciferol) 50 MCG PO (09:14)
[2024-12-13] MEDS: COLACE 100 MG PO ×2 (09:14→19:53)
[2024-12-13] MEDS: MIRALAX PO (09:15)
[2024-12-13] MEDS: MILK OF MAGNESIA 30 ML PO (09:17)
[2024-12-13] MEDS: NON-FORMULARY ITEM 1 UNIT PO ×2 (09:17→19:53)
--- NOTE | 2024-12-13 11:20 | W.PN.ID1 ---
Date of Service
Date of Service: December 13, 2024
Today's Communication
Continue Ertapenem 1g IV q24hr through 01/21/2025, followed by doxycycline 100mg po bid x 3 months through 04/15/2025, then observe.
Assessment / Plan
# ICD pocket infection
- ICD site skin abrasions/maceration wounds due to position of generator at axilla constant pressure from upper arm
- Superficial skin swabs S. aureus
- Blood cx's x 2 negative to date
- TTE no significant change
- 12/08/24 s/p washout of pocket site - noted to have blood and pus, relocation of same generator to new pocket medial to previous pocket.
- OR cx with Klebsiella oxytoca x 2
- Per Dr. Gaines - no plan for device extraction
- Continue Ertapenem 1g IV q24hr through 01/21/2025, followed by doxycycline 100mg po bid x 3 months through 04/15/2025, then observe.
Follow weekly CBC/diff, CMP while on Ertapenem
- Infusion sheet submitted to top case assembler 12/12/24
# s/p bladder stone extraction 12/06
# Group B strep bacteruria - suspect contaminant/colonization
Group B strep not considered urine pathogen in non- individuals.
# Conditions present on admission:
Hypertension
CAD status post CABG
Cardiomyopathy
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
Aortic stenosis status post TAVR 03/2024
Prostate cancer status post radiation
Cholecystectomy
Left THR
Spine surgeries x 2
Chief Complaint
-: Other (ICD site wounds)
Subjective / Review of Systems
No new complaints.
Vital Signs / Physical Exam
Vital Signs
Vital Signs
Temp Pulse Resp BP Pulse Ox
97.4 F 66 18 132/60 95
12/13/24 07:54 12/13/24 07:54 12/13/24 07:54 12/13/24 07:54 12/13/24 07:54
Physical Exam
Constitutional: No Acute Distress and Cachetic
Cardiovascular: Regular Rate, S1/S2 and Other (left chesst wall ICD site with drain)
Pulmonary: Clear
Gastrointestinal: Non Tender and Non Distended
Genito-Urinary: Hematuria; Negative CVA Tenderness
Extremities: Negative Edema
Neurological: AO x 3
Objective Data
Lab Data
Lab Results
12/13/24 05:35
12/13/24 05:35
Estimated Creat Clear 71 ml/min 12/13/24 05:35
Total Bilirubin 0.7 mg/dl (0.2-1.3) 12/06/24 17:56
AST 24 U/L (17-59) 12/06/24 17:56
ALT 16 U/L (0-50) 12/06/24 17:56
Alkaline Phosphatase 93 U/L (38-126) 12/06/24 17:56
Most recent labs reviewed.
Micro Results:
12/06/24 18:45 Blood Culture - Final
Blood/Venous No Growth - Final Report
12/06/24 17:56 Blood Culture - Final
Blood/Venous No Growth - Final Report
12/08/24 13:47 Wound Culture - Final
Ulcer Klebsiella oxytoca
Klebsiella oxytoca#2
Gram Stain - Final
12/07/24 09:20 Wound Culture - Final
Skin Surface S aureus-Methicillin Sensitive
Gram Stain - Final
12/07/24 09:20 Wound Culture - Final
Skin Surface S aureus-Methicillin Sensitive
Gram Stain - Final
12/06/24 10:50 Urine Culture - Final
Urine Streptococcus agalactiae
Wound/abscess/other Cult Final 12/08/24
Few Klebsiella oxytoca Strain #1
Few Klebsiella oxytoca Strain #2
Organism 1 Klebsiella oxytoca
Organism 2 Klebsiella oxytoca#2
K.OXYTOCA K.OXYTOCA#2
M.I.C. RX M.I.C. RX
--------- --- --------- ---
Amoxicillin/Potas. Clavulanate <=8/4 S <=8/4 S
Ampicillin >16 R >16 R
Ampicillin/Sulbactam 16/8 I 16/8 I
Aztreonam <=4 S <=4 S
Cefazolin 8 R 16 R
Cefepime <=2 S <=2 S
Ceftazidime <=1 S <=1 S
Ceftriaxone <=1 S <=1 S
Ertapenem <=0.5 S <=0.5 S
Ciprofloxacin <=0.25 S <=0.25 S
Gentamicin <=2 S <=2 S
Meropenem <=1 S <=1 S
Piperacillin/Tazobactam <=8 S <=8 S
Tetracycline <=4 S <=4 S
Tobramycin <=2 S <=2 S
Trimethoprim/Sulfamethoxazole <=2/38 S <=2/38 S
Wound/abscess/other Cult Final 12/07/24
Many S aureus-Methicillin Sensitive
Many Diptheroids
Organism 1 S aureus-Methicillin Sensitive
1. S aureus-Methicillin Sensitive
M.I.C. RX
--------- ---
Amoxicillin/Potas. Clavulanate <=4/2 S
Ampicillin 8 R
Clindamycin <=0.5 S
Gentamicin <=4 S
Erythromycin <=0.5 S
Levofloxacin <=1 S
Oxacillin <=0.25 S
Tetracycline <=4 S
Trimethoprim/Sulfamethoxazole <=0.5/9.5 S
Vancomycin 1 S
--- NOTE | 2024-12-13 11:35 | W.PN.HOSP.TC ---
Today's Communication/Plan
-
Pain control
Magnesium repletion
IV antibiotics
Disposition efforts
Assessment / Plan
Assessment / Plan
Gen-AAOx3, NAD, cachectic
HEENT-NC, AT, anicteric, clear oral mm
Neck-supple
CV-reg, no M, +S1/S2
Lungs-clear B/L
Abd-soft, NT, ND
Ext-no edema
Musculoskeletal-no cyanosis, clubbing
Skin-defibrillator site with drain in place.
Neuro-grossly non-focal
Psych-calm, cooperative
#ICD pocket infection -no signs or symptoms of sepsis. Blood cultures negative. Wound culture before ICD pocket change positive for MSSA.
Patient underwent pocket revision, debridement and relocation of ICD 12/08. During the procedure, yuri pus was noted coming from the pocket site. All infected material was removed. Cultures were obtained, now showing Klebsiella oxytocin or, 2
serotypes. Antibiotics changed to cefepime by ID.
New pocket located more medially was created and the defibrillator was relocated.
KIERA drain placed. - remove in 2-3 days as per EP
-IV abx - Ertapenem 1g IV q24hr through 01/21/2025, followed by doxycycline 100mg po bid x 3 months through 04/15/2025, then observe
#QTc prolongation -548ms on EKG 12/09. Potassium 3.9, magnesium 1.6. Will recheck in the morning.
#Bladder stone -underwent cystoscopy and stone extraction, 12/06. Expected hematuria noted.
Continue Pyridium as needed.
Brooks catheter removed 12/10. Bladder scan protocol ordered.
Condom cath
-Urology outpatient f/u
Acute anemia -hemoglobin 9.9 this morning, relatively stable. Was 14.1 on 12/06. Perhaps he was hemoconcentrated on admission. Unclear etiology for acute anemia. No obvious bleeding. Stool reported as brown. Check anemia labs.
Thrombocytopenia -acute. 110k. Differential diagnosis of infection related versus ADR versus other. Monitor for now.
Constipation -bowel regimen ordered.
CAD/CABG -bypass x 3 vessels.
Chronic LE pain - pulses present; Warm to touch; pain control; pain control
Acute hypomagnesemia�monitor and replete
History of NSVT
Chronic heart failure reduced EF -stable.
Severe -s/p TAVR, March 2024.
Essential hypertension -stable.
Prostate cancer history
Underweight -BMI 18.
DNR -confirmed with patient.
PT/OT -Home health recommended.
Dispo -SNF placement; Await placement; CM aware
Anticipated Discharge: Within 24 hours
Subjective/Interval History
-
Date of Service: December 13, 2024
Right lower extremity pain, Has been chronic
Objective Data
-
Labs:
Laboratory Results
12/13/24
05:35
WBC 9.4
Hgb 9.7 L
Hct 28.3 L
Plt Count 117 L
Sodium 136
Potassium 4.1
Chloride 102
Carbon Dioxide 29
BUN 14
Creatinine 0.6 L
Glucose 83
Calcium 8.9
Vital Signs:
Vital Signs
Temp Pulse Resp BP Pulse Ox
97.9 F 64 16 118/53 94
12/13/24 11:32 12/13/24 11:32 12/13/24 11:32 12/13/24 11:32 12/13/24 11:32
I&O
12/12/24 12/13/24 12/14/24
06:59 06:59 06:59
Intake Total 840 / 840 1500 / 1500
Output Total 640 / 640 1215 / 1215
Balance 200 / 200 285 / 285
Review of Systems
-
History Source: Patient
All other systems: Reviewed and negative
Data Reviewed
-
Diagnostic Radiology: Report Reviewed by me
Labs: Labs Reviewed by me
--- NOTE | 2024-12-13 11:47 | CM ---
Addendum entered by Michelle Solis RN 12/14/24 09:32:
Addendum 12/13/24 Pt accpeted at [facility] . Spoke with [facility] he requested [facility] .
Will need auth NP [facility] [id number] Dr Sanders npi [id number].
PLAN To [facility] after auth
Original Note:
Following SNf have accepted pt: [facility] [place].
LM with [facility] with above information .
After identifying SNF . Auth will need to be made with [facility].
PLAN To SNf after auth for rehab and IV antibiotics.
[2024-12-13] MEDS: DULCOLAX 10 MG RECTAL (12:13)
[2024-12-13] MEDS: INVANZ 60 MG IV (12:51)
--- NOTE | 2024-12-13 15:19 | W.PN.URO.CBU ---
Today's Communication / Plan
-
use condom vcath
Assessment / Plan
-
s/p laser prostea stone pt has irritative sxs with and without muñoz will keep muñoz out but will give pt option to replace muñoz for now comdom cath but pt will have penile pain with or without condom
Diagnosis
-
Date of Service: December 13, 2024
-
Patient Diagnosis:
Post Op Day:
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
Post Op Day:
Patient Diagnosis:
Post Op Day:
Patient Diagnosis:
Post Op Day:
Patient Diagnosis:
Post Op Day:
Patient Diagnosis:
Post Op Day:
Patient Diagnosis:
radiation prostatitis with stone retention
Post Op Day:
Subjective
-
chronic pain livable
Objective
-
Vital Signs
Temp Pulse Resp BP Pulse Ox
97.9 F 64 16 118/53 94
12/13/24 11:32 12/13/24 11:32 12/13/24 11:32 12/13/24 11:32 12/13/24 11:32
Intake and Output
12/12/24 12/13/24 12/14/24
06:59 06:59 06:59
Intake Total 840 / 840 1500 / 1500
Output Total 640 / 640 1215 / 1215
Balance 200 / 200 285 / 285
Intake:
Oral fluids 840 / 840 1440 / 1440
IV piggybacks 60 / 60
Output:
Drain Output (Total) 40 / 40 15
Left Chest Julian-Zavaleta 40 / 40 15
Urine, Voided 600 / 600 1200 / 1200
Other:
How many times incontinent 1
SMALL amount urine
How many times incontinent 1
MODERATE amount urine
Laboratory Results
12/13/24 05:35
12/13/24 05:35
Review of Systems
-
: Difficulty Voiding
Physical Exam
-
General - well developed, well nourished, no acute distress
Chest - clear bilaterally
Abdomen - soft, non-tender, positive bowel sounds, no CVAT, no incisional pain or distention
Genitalia - normal
Rectal - normal
Skin - warm & dry with no rash
Neuro - AOx3, no motor deficits
Extremities - no clubbing, no cyanosis, no edema
Incision - clean, dry
Dressing - clean, dry, intact
[2024-12-13] MEDS: PACERONE 200 MG PO (19:53)
[2024-12-13] MEDS: DIOVAN 40 MG PO (19:53)
[2024-12-14 06:00] VITALS: BMI 18.4
[2024-12-14 06:31] LABS: Hematocrit 27.8 % (39.0-52.0); Hemoglobin 9.1 g/dL (13.0-18.0); Mean Corp Hgb Conc. 32.7 g/dL (33.0-37.0); Mean Corpuscular Volume 98.9 fL (80.0-94.0); Platelet Count 120 10^3/uL (130-400); Red Cell Dist. Width 15.0 % (11.5-14.5)
[2024-12-14 06:44] LABS: Blood Urea Nitrogen 14 mg/dl (9-20); Calcium 8.4 mg/dl (8.4-10.2); Carbon Dioxide 29 mmol/L (22-30); Chloride 100 mmol/L (98-107); Estimated Creatinine Clearance 71 ml/min; Glucose 79 mg/dl (70-99); Potassium 4.3 mmol/L (3.5-5.1); Sodium 134 mmol/L (135-145); eGFR > 60.00
[2024-12-14 08:18] VITALS: BP 126/65
--- NOTE | 2024-12-14 08:18 | W.PN.CD ---
Today's Communication / Plan
-
- Likely will remove the KIERA drain later this week; EP Cardiology to reevaluate patient tomorrow.
- ID to continue IV antibiotics for 3-4 weeks.
- EP cardiology recommends 3-4 months of suppressive antibiotics likely Doxycycline after treatment with IV antibiotics.
- Plan is to stop antibiotics in 3-4 months and if infection recurs then will have to extract the whole system.
Impression / Plan
-
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
Primary Thumb Sewer: Dr. Reardon
Device infection - Medtronic BiV ICD
- The infected hardware was cleaned and placed in a new pocket and is considered clean now
- The old pocket is from the new pocket and is infected - growing Klebsiella Oxytoca
- The MSSA was from the skin and may have not been involved in the pocket infection.
- s/p relocation of the ICD generator to give a chance with conservative measures.
- KIERA drain in place.
- Likely will remove the KIERA drain later this week; EP Cardiology to reevaluate patient tomorrow.
- ID to continue IV antibiotics for 3-4 weeks.
- EP cardiology recommends 3-4 months of suppressive antibiotics likely Doxycycline after treatment with IV antibiotics.
- Plan is to stop antibiotics in 3-4 months and if infection recurs then will have to extract the whole system.
- Interrogation 12/01/2024: AP 78%, R/L [employer]HER 93/99%. Not dependent on the pacemaker.
Cystoscopy with stone removal
- Recommendations as per urology.
Dilated cardiomyopathy (LVEF 25%), chronic
- Appears to be compensated on examination.
- GDMT is limited due to side effects (Farxiga, metoprolol, lisinopril)
- Updated echocardiogram 12/07/24 - LVEF 25%
- Trend daily weigh, I/Os
Coronary artery disease s/p CABG
- Denies anginal symptoms
- ASA had to be held in the past due to thrombocytopenia, follow CBC
Severe aortic stenosis s/p TAVR
- Peak/mean gradients 12/7 mmHg without AR on prior TTE
- Echocardiogram as above - TTE 12/07 - gradient 14/8 mmHg.
NSVT, not on beta-diana due to side effects, continue amiodarone
LBBB
Physical Exam
Vital Signs/Labs
Vital Signs
Temp Pulse Resp BP Pulse Ox
98.7 F 64 16 112/57 97
12/13/24 23:24 12/13/24 23:24 12/13/24 23:24 12/13/24 23:24 12/13/24 23:24
12/13/24 12/14/24 12/15/24
06:59 06:59 06:59
Actual Weight 58.241 kg 58.196 kg
12/14/24 06:06
12/14/24 06:06
Magnesium 1.5 mg/dl (1.6-2.3) L 12/13/24 05:35
Physical Exam
Constitutional: No acute distress and Comfortable
EENT: Anicteric
Cardiovascular: Rhythm & rate is regular, Pedal edema is absent, Systolic murmur present (02/14) and S1S2 is normal
Respiratory: Respiratory effort normal and Lungs clear to auscul.
GI: Soft
Neuro/Psych: AO x 3
Other: Skin (Warm, dry)
Data Reviewed
-
Date of Service: December 14, 2024
Echo: Report Reviewed by me (12/07/2024: LVEF 25-30%.)
Labs: Labs Reviewed by me
[2024-12-14] MEDS: MAGNESIUM OXIDE 200 MG PO (09:12)
[2024-12-14] MEDS: ASPIR LOW (ENTERIC COATED) 81 MG PO (09:12)
[2024-12-14] MEDS: VITAMIN C 500 MG PO (09:12)
[2024-12-14] MEDS: VITAMIN B-12 1000 MCG PO (09:12)
[2024-12-14] MEDS: MIRALAX 17 GRAMS PO (09:13)
[2024-12-14] MEDS: VITAMIN D3 (cholecalciferol) 50 MCG PO (09:13)
[2024-12-14] MEDS: COLACE 100 MG PO (09:13)
[2024-12-14] MEDS: NON-FORMULARY ITEM 1 UNIT PO (09:13)
--- NOTE | 2024-12-14 09:37 | W.PN.ID1 ---
Date of Service
Date of Service: December 14, 2024
Today's Communication
Continue Ertapenem 1g IV q24hr through 01/21/2025, followed by doxycycline 100mg po bid x 3 months through 04/15/2025, then observe.
Assessment / Plan
# ICD pocket infection
- ICD site skin abrasions/maceration wounds due to position of generator at axilla constant pressure from upper arm
- Superficial skin swabs S. aureus (MSSA)
- Blood cx's x 2 negative to date
- TTE no significant change
- 12/08/24 s/p washout of pocket site - noted to have blood and pus, relocation of same generator to new pocket medial to previous pocket.
- OR cx with Klebsiella oxytoca x 2
- Per Dr. Gaines - no plan for device extraction; he recommends suppressive therapy x 3 to 4 months.
- Continue Ertapenem 1g IV q24hr through 01/21/2025, followed by doxycycline 100mg po bid x 3 months through 04/15/2025, then observe.
Follow weekly CBC/diff, CMP while on Ertapenem
- Infusion sheet submitted to oil field caser 12/12/24
# s/p bladder stone extraction 12/06
# Group B strep bacteruria - suspect contaminant/colonization
Group B strep not considered urine pathogen in non- individuals.
# Conditions present on admission:
Hypertension
CAD status post CABG
Cardiomyopathy
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
Aortic stenosis status post TAVR 03/2024
Prostate cancer status post radiation
Cholecystectomy
Left THR
Spine surgeries x 2
Chief Complaint
-: Other (ICD site wounds)
Subjective / Review of Systems
Penile pain back to baseline chronic pain.
Vital Signs / Physical Exam
Vital Signs
Vital Signs
Temp Pulse Resp BP Pulse Ox
98.6 F 85 16 126/65 97
12/14/24 08:18 12/14/24 08:18 12/14/24 08:18 12/14/24 08:18 12/14/24 08:18
Physical Exam
Constitutional: No Acute Distress and Cachetic
Cardiovascular: Regular Rate, S1/S2 and Other (Left chest wall dressing dry.)
Pulmonary: Clear
Gastrointestinal: Non Tender and Non Distended
Genito-Urinary: Hematuria; Negative CVA Tenderness
Extremities: Negative Edema
Neurological: AO x 3
Objective Data
Lab Data
Lab Results
12/14/24 06:06
12/14/24 06:06
Estimated Creat Clear 71 ml/min 12/14/24 06:06
Total Bilirubin 0.7 mg/dl (0.2-1.3) 12/06/24 17:56
AST 24 U/L (17-59) 12/06/24 17:56
ALT 16 U/L (0-50) 12/06/24 17:56
Alkaline Phosphatase 93 U/L (38-126) 12/06/24 17:56
Most recent labs reviewed.
Micro Results:
12/06/24 18:45 Blood Culture - Final
Blood/Venous No Growth - Final Report
12/06/24 17:56 Blood Culture - Final
Blood/Venous No Growth - Final Report
12/08/24 13:47 Wound Culture - Final
Ulcer Klebsiella oxytoca
Klebsiella oxytoca#2
Gram Stain - Final
12/07/24 09:20 Wound Culture - Final
Skin Surface S aureus-Methicillin Sensitive
Gram Stain - Final
12/07/24 09:20 Wound Culture - Final
Skin Surface S aureus-Methicillin Sensitive
Gram Stain - Final
12/06/24 10:50 Urine Culture - Final
Urine Streptococcus agalactiae
Wound/abscess/other Cult Final 12/08/24
Few Klebsiella oxytoca Strain #1
Few Klebsiella oxytoca Strain #2
Organism 1 Klebsiella oxytoca
Organism 2 Klebsiella oxytoca#2
K.OXYTOCA K.OXYTOCA#2
M.I.C. RX M.I.C. RX
--------- --- --------- ---
Amoxicillin/Potas. Clavulanate <=8/4 S <=8/4 S
Ampicillin >16 R >16 R
Ampicillin/Sulbactam 16/8 I 16/8 I
Aztreonam <=4 S <=4 S
Cefazolin 8 R 16 R
Cefepime <=2 S <=2 S
Ceftazidime <=1 S <=1 S
Ceftriaxone <=1 S <=1 S
Ertapenem <=0.5 S <=0.5 S
Ciprofloxacin <=0.25 S <=0.25 S
Gentamicin <=2 S <=2 S
Meropenem <=1 S <=1 S
Piperacillin/Tazobactam <=8 S <=8 S
Tetracycline <=4 S <=4 S
Tobramycin <=2 S <=2 S
Trimethoprim/Sulfamethoxazole <=2/38 S <=2/38 S
Wound/abscess/other Cult Final 12/07/24
Many S aureus-Methicillin Sensitive
Many Diptheroids
Organism 1 S aureus-Methicillin Sensitive
1. S aureus-Methicillin Sensitive
M.I.C. RX
--------- ---
Amoxicillin/Potas. Clavulanate <=4/2 S
Ampicillin 8 R
Clindamycin <=0.5 S
Gentamicin <=4 S
Erythromycin <=0.5 S
Levofloxacin <=1 S
Oxacillin <=0.25 S
Tetracycline <=4 S
Trimethoprim/Sulfamethoxazole <=0.5/9.5 S
Vancomycin 1 S
--- NOTE | 2024-12-14 10:33 | CM ---
Request for skilled rehab submitted through [facility].
Approved skilled rehab at [facility].
Authorization # [id number]
Start Date 12/14/24, NRD 12/20/24
Updates to fax# [phone]
[2024-12-14 11:19] VITALS: BP 132/78
--- NOTE | 2024-12-14 11:55 | W.PN.HOSP.TC ---
Today's Communication/Plan
-
KIERA drain - remove in 2-3 days as per EP, follow-up arranged
-IV abx - Ertapenem 1g IV q24hr through 01/21/2025, followed by doxycycline 100mg po bid x 3 months through 04/15/2025, then observe
-EP cardiology recommends 3-4 months of suppressive antibiotics likely Doxycycline after treatment with IV antibiotics.
- Plan is to stop antibiotics in 3-4 months and if infection recurs then will have to extract the whole system.
F/u uric acid
Added gabapentin
F/u Urology, PCP, Cards, ID outpt
Assessment / Plan
Assessment / Plan
Gen-AAOx3, NAD, cachectic
HEENT-NC, AT, anicteric, clear oral mm
Neck-supple
CV-reg, no M, +S1/S2
Lungs-clear B/L
Abd-soft, NT, ND
Ext-no edema
Musculoskeletal-no cyanosis, clubbing
Skin-defibrillator site with drain in place.
Neuro-grossly non-focal
Psych-calm, cooperative
#ICD pocket infection -no signs or symptoms of sepsis. Blood cultures negative. Wound culture before ICD pocket change positive for MSSA.
Patient underwent pocket revision, debridement and relocation of ICD 12/08. During the procedure, yuri pus was noted coming from the pocket site. All infected material was removed. Cultures were obtained, now showing Klebsiella oxytocin or, 2
serotypes. Antibiotics changed to cefepime by ID.
New pocket located more medially was created and the defibrillator was relocated.
KIERA drain placed. - remove in 2-3 days as per EP, follow-up arranged
-IV abx - Ertapenem 1g IV q24hr through 01/21/2025, followed by doxycycline 100mg po bid x 3 months through 04/15/2025, then observe
-EP cardiology recommends 3-4 months of suppressive antibiotics likely Doxycycline after treatment with IV antibiotics.
- Plan is to stop antibiotics in 3-4 months and if infection recurs then will have to extract the whole system.
#QTc prolongation -548ms on EKG 12/09. Potassium 3.9, magnesium 1.6. Will recheck in the morning.
#Bladder stone -underwent cystoscopy and stone extraction, 12/06. Expected hematuria noted.
Continue Pyridium as needed.
Brooks catheter removed 12/10. Bladder scan protocol ordered.
Condom cath
-Urology outpatient f/u
Acute anemia -hemoglobin 9.9 this morning, relatively stable. Was 14.1 on 12/06. Perhaps he was hemoconcentrated on admission. Unclear etiology for acute anemia. No obvious bleeding. Stool reported as brown. Check anemia labs.
Thrombocytopenia -acute. 110k. Differential diagnosis of infection related versus ADR versus other. Monitor for now.
Constipation -bowel regimen ordered.
CAD/CABG -bypass x 3 vessels.
Chronic LE pain - pulses present; Warm to touch; pain control; pain control; added uric acid; added gabapentin
Hyponatremia- mild - monitor outpt
Acute hypomagnesemia�monitor and replete
History of NSVT
Chronic heart failure reduced EF -stable.
Severe -s/p TAVR, March 2024.
Essential hypertension -stable.
Prostate cancer history
Underweight -BMI 18.
DNR -confirmed with patient.
PT/OT -Home health recommended.
Dispo -SNF placement; Await placement; CM aware
More than 30 minutes spent in discharge including
Final examination of the patient
Summarizing hospital stay
Instructions for continuing care to all relevant caregivers
Preparation of discharge records, prescriptions, and referral forms
Total time spent (in minutes): 36
Anticipated Discharge: Today
Subjective/Interval History
-
Date of Service: December 14, 2024
No acute events overnight
Objective Data
-
Labs:
Laboratory Results
12/14/24
06:06
WBC 9.1
Hgb 9.1 L
Hct 27.8 L
Plt Count 120 L
Sodium 134 L
Potassium 4.3
Chloride 100
Carbon Dioxide 29
BUN 14
Creatinine 0.6 L
Glucose 79
Calcium 8.4
Vital Signs:
Vital Signs
Temp Pulse Resp BP Pulse Ox
98.2 F 70 16 132/78 97
12/14/24 11:19 12/14/24 11:19 12/14/24 11:19 12/14/24 11:19 12/14/24 11:19
I&O
12/13/24 12/14/24 12/15/24
06:59 06:59 06:59
Intake Total 1500 / 1500 480 / 480 240 / 240
Output Total 1215 / 1215 360 / 360
Balance 285 / 285 120 / 120 240 / 240
Review of Systems
-
History Source: Patient
All other systems: Reviewed and negative
Data Reviewed
-
Diagnostic Radiology: Report Reviewed by me
Labs: Labs Reviewed by me
[2024-12-14 11:58] LABS: Uric Acid 2.4 mg/dl (3.5-8.5)
--- NOTE | 2024-12-14 11:59 | W.DS.TRANS ---
DC Summary - Signal Person
-
Discharge Instructions:
Sleep Apnea Risk Intermediate
Discharge Diagnosis/Procedures ICD pocket revision
Diet Low Cholesterol
Driving Restrictions No driving for 24 hours
Blood Work Weekly CBC/diff, CMP qMonday while on IV abx.
Instructions:
Stand-Alone Forms: DC Inst - Implanted Device
Changes to Home Medications: Yes
Discharge Medications:
DC Medications w/original date entered in [employer]
aspirin 81 mg tablet,delayed release 81 mg PO DAILY Blood Clot Prevention/Tx 01/01/24
cyanocobalamin (vitamin B-12) 1,000 mcg tablet 1,000 mcg PO DAILY Supplement #0 tabs 03/25/24
vit C 250 mg-vit E 90 mg-zinc 40 mg-copper 1 [id number] capsule (PreserVision AREDS-2) 1 tab PO BID Supplement #0 caps 03/25/24
amiodarone 200 mg tablet 200 mg PO HS Arrhythmia 05/19/24
ascorbic acid (vitamin C) 500 mg tablet (Vitamin C) 500 mg PO DAILY Supplement 11/28/24
cholecalciferol (vitamin D3) 50 mcg (2,000 unit) tablet (Vitamin D3) 50 mcg PO DAILY Supplement 11/28/24
docusate sodium 100 mg capsule 100 mg PO HS Constipation 11/28/24
magnesium hydroxide 400 mg/5 mL oral suspension (Milk of Magnesia) 10 ml PO PRN PRN Constipation 11/28/24
magnesium oxide 250 mg PO BID Supplement 11/28/24
valsartan 40 mg tablet 40 mg PO HS Blood Pressure 11/28/24
Ertapenem [Invanz] 1,000 mg 120 mls/hr IV Q24H 12/14/24
gabapentin 100 mg capsule 100 mg PO TID #0 caps 12/14/24
phenazopyridine 200 mg tablet 200 mg PO TIDPRN PRN penile pain #0 tabs 12/14/24
Home Medication Changes
Ertapenem [Invanz] 1,000 mg 120 mls/hr IV Q24H 12/14/24
gabapentin 100 mg capsule 100 mg PO TID #0 caps 12/14/24
phenazopyridine 200 mg tablet 200 mg PO TIDPRN PRN penile pain #0 tabs 12/14/24
Pending Results: No
--- NOTE | 2024-12-14 12:02 | CM ---
Addendum entered by Nat Su 12/14/24 13:00:
Patient for mushroom picker at 4:30pm and he will call patient
Original Note:
Patient for transfer to SNF; Please call to [phone]/fax [phone]. CM spoke with patient son who indicated that he would check about a family member to transport vs wheelchair van. CM awaiting call back. CM called to SNF and update provided.
CM will continue to follow for discharge planning needs.
Plan; SNF; [facility]
[2024-12-14] MEDS: INVANZ 60 MG IV (12:39)
--- NOTE | 2024-12-14 14:00 | W.PN.URO.CBU ---
Today's Communication / Plan
-
home with condom cath if ok with pt
Assessment / Plan
-
s/p laser prostea stone pt has irritative sxs with and without muñoz will keep muñoz out but will give pt option to replace muñoz for now comdom cath but pt will have penile pain with or without condom
Diagnosis
-
Date of Service: December 14, 2024
-
Patient Diagnosis:
Post Op Day:
Patient Diagnosis:
Post Op Day:
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
Post Op Day:
Patient Diagnosis:
Post Op Day:
Patient Diagnosis:
Post Op Day:
Patient Diagnosis:
Post Op Day:
Patient Diagnosis:
Post Op Day:
Patient Diagnosis:
radiation prostatitis with stone retention
Post Op Day:
Subjective
-
chronic p[tank pain due to rad dx
Objective
-
Vital Signs
Temp Pulse Resp BP Pulse Ox
98.2 F 70 16 132/78 97
12/14/24 11:19 12/14/24 11:19 12/14/24 11:19 12/14/24 11:19 12/14/24 11:19
Intake and Output
12/13/24 12/14/24 12/15/24
06:59 06:59 06:59
Intake Total 1500 / 1500 480 / 480 240 / 240
Output Total 1215 / 1215 360 / 360
Balance 285 / 285 120 / 120 240 / 240
Intake:
Oral fluids 1440 / 1440 480 / 480 240 / 240
IV piggybacks 60 / 60
Output:
Drain Output (Total)
Left Chest Julian-Zavaleta
Urine, Voided 1200 / 1200 350 / 350
Other:
How many times incontinent 1 1
SMALL amount urine
Laboratory Results
12/14/24 06:06
12/14/24 06:06
Review of Systems
-
: Difficulty Voiding and Bleeding
Physical Exam
-
General - well developed, well nourished, no acute distress
Chest - clear bilaterally
Abdomen - soft, non-tender, positive bowel sounds, no CVAT, no incisional pain or distention
Genitalia - normal
Rectal - normal
Skin - warm & dry with no rash
Neuro - AOx3, no motor deficits
Extremities - no clubbing, no cyanosis, no edema
Incision - clean, dry
Dressing - clean, dry, intact
Counseling
-
jose with condom cath if pt requests
[2024-12-14 15:26] VITALS: BP 142/76
--- NOTE | 2024-12-14 15:30 | PTCARENOTE ---
Pt's own medication, PreserVision, in pt belongs bag. Zeny Suarez notified. Care ongoing.
[2024-12-14] MEDS: NEURONTIN 100 MG PO (16:58)
== END 2024-12-14 17:22 | DRG 261 ==
LOC: 2 SOUTH 16:58
PROVIDERS: Internal Medicine Cardiovascular Disease; Nurse Practitioner Adult Health; Radiology Diagnostic Radiology; Specialist; ADMITTING PHYSICIAN Hospitalist; ATTENDING PHYSICIAN Internal Medicine; CONSULT PHYSICIAN Internal Medicine Infectious Disease; FAMILY PHYSICIAN Hospitalist; OTHER PHYSICIAN Internal Medicine Cardiovascular Disease
PROC: 0TCB8ZZ Extirpation of Matter from Bladder, Via Natural or Artificial Opening Endoscopic (ICD-10-PCS; 2024-12-06)
PROC: 0JWT0PZ Revision of Cardiac Rhythm Related Device in Trunk Subcutaneous Tissue and Fascia, Open Approach (ICD-10-PCS; 2024-12-08)
PROC: 3E0102A Introduction of Anti-Infective Envelope into Subcutaneous Tissue, Open Approach (ICD-10-PCS; 2024-12-08)
PROC: 4B02XTZ Measurement of Cardiac Defibrillator, External Approach (ICD-10-PCS; 2024-12-08)
PROC: 0JD60ZZ Extraction of Chest Subcutaneous Tissue and Fascia, Open Approach (ICD-10-PCS; 2024-12-08)
PROC: 02HV33Z Insertion of Infusion Device into Superior Vena Cava, Percutaneous Approach (ICD-10-PCS; 2024-12-12)
DX: T82.7XXA Infection and inflammatory reaction due to other cardiac and vascular devices, implants and grafts, initial encounter (principal); E87.1 Hypo-osmolality and hyponatremia; I42.0 Dilated cardiomyopathy; I50.22 Chronic systolic (congestive) heart failure; I47.20 Ventricular tachycardia, unspecified; Z68.1 Body mass index [BMI] 19.9 or less, adult; N30.40 Irradiation cystitis without hematuria; N21.0 Calculus in bladder; I11.0 Hypertensive heart disease with heart failure; I25.10 Atherosclerotic heart disease of native coronary artery without angina pectoris; I35.0 Nonrheumatic aortic (valve) stenosis; H35.30 Unspecified macular degeneration; H91.90 Unspecified hearing loss, unspecified ear; D64.9 Anemia, unspecified; I44.7 Left bundle-branch block, unspecified; N40.0 Benign prostatic hyperplasia without lower urinary tract symptoms; R63.6 Underweight; E78.00 Pure hypercholesterolemia, unspecified; N21.1 Calculus in urethra; D69.6 Thrombocytopenia, unspecified; K59.00 Constipation, unspecified; Y84.2 Radiological procedure and radiotherapy as the cause of abnormal reaction of the patient, or of later complication, without mention of misadventure at the time of the procedure; B96.1 Klebsiella pneumoniae [K. pneumoniae] as the cause of diseases classified elsewhere; B95.61 Methicillin susceptible Staphylococcus aureus infection as the cause of diseases classified elsewhere; Y83.1 Surgical operation with implant of artificial internal device as the cause of abnormal reaction of the patient, or of later complication, without mention of misadventure at the time of the procedure; Y92.9 Unspecified place or not applicable; Y71.0 Diagnostic and monitoring cardiovascular devices associated with adverse incidents; Z66 Do not resuscitate; Z90.49 Acquired absence of other specified parts of digestive tract; Z87.891 Personal history of nicotine dependence; Z88.6 Allergy status to analgesic agent; Z88.8 Allergy status to other drugs, medicaments and biological substances; Z79.82 Long term (current) use of aspirin; Z95.2 Presence of prosthetic heart valve; Z85.46 Personal history of malignant neoplasm of prostate; Z95.1 Presence of aortocoronary bypass graft; Z95.810 Presence of automatic (implantable) cardiac defibrillator; Z92.3 Personal history of irradiation
CPT/HCPCS: 10140; 33222; 36415; 71045; 71046; 80048; 80053; 82607; 82728; 82746; 83540; 83550; 83735; 84550; 85025; 85027; 85045; 87040; 87070; 87077; 87086; 87147; 87186; 87205; 93005; 93306; 97110; 97116; 97162; 97167; 97530; 97535; J1335

== ENCOUNTER → 2024-12-19 13:00 | Outpatient (REF) | payer OTHER, SELFPAY ==
[2024-12-19 13:22] LABS: Hematocrit 28.4 % (39.0-52.0); Hemoglobin 9.0 g/dL (13.0-18.0); Mean Corp Hgb Conc. 31.7 g/dL (33.0-37.0); Mean Corpuscular Volume 107.6 fL (80.0-94.0); Nucleated Red Blood Cells % 0 % (-); Platelet Count 149 10^3/uL (130-400); Red Cell Dist. Width 15.0 % (11.5-14.5)
[2024-12-19 13:28] LABS: ALT (SGPT) 11 U/L (0-50); AST (SGOT) 20 U/L (17-59); Albumin 3.1 g/dl (3.5-5.0); Alkaline Phosphatase 52 U/L (38-126); Blood Urea Nitrogen 15 mg/dl (9-20); Calcium 8.6 mg/dl (8.4-10.2); Carbon Dioxide 30 mmol/L (22-30); Chloride 101 mmol/L (98-107); Glucose 66 mg/dl (70-99); Potassium 4.4 mmol/L (3.5-5.1); Sodium 132 mmol/L (135-145); Total Protein 5.9 g/dl (6.3-8.2); eGFR > 60.00
== END ==
LOC: OLABP 13:00
PROVIDERS: ATTENDING PHYSICIAN Family Medicine
DX: I10 Essential (primary) hypertension (principal); I25.10 Atherosclerotic heart disease of native coronary artery without angina pectoris; I42.9 Cardiomyopathy, unspecified; I50.20 Unspecified systolic (congestive) heart failure; N20.1 Calculus of ureter; N21.0 Calculus in bladder; T82.7XXD Infection and inflammatory reaction due to other cardiac and vascular devices, implants and grafts, subsequent encounter; D64.9 Anemia, unspecified; D69.6 Thrombocytopenia, unspecified; E87.1 Hypo-osmolality and hyponatremia; N40.0 Benign prostatic hyperplasia without lower urinary tract symptoms; R63.6 Underweight; Z85.46 Personal history of malignant neoplasm of prostate
CPT/HCPCS: 36415; 80053; 85025

== ENCOUNTER → 2024-12-20 08:47 | Outpatient (REF) | payer OTHER, SELFPAY ==
[2024-12-20 10:56] LABS: Blood Urea Nitrogen 14 mg/dl (9-20); Calcium 8.6 mg/dl (8.4-10.2); Carbon Dioxide 30 mmol/L (22-30); Chloride 100 mmol/L (98-107); Glucose 84 mg/dl (70-99); Potassium 4.2 mmol/L (3.5-5.1); Sodium 132 mmol/L (135-145); eGFR > 60.00
== END ==
LOC: OLABP 08:47
PROVIDERS: ATTENDING PHYSICIAN Family Medicine
DX: T82.7XXD Infection and inflammatory reaction due to other cardiac and vascular devices, implants and grafts, subsequent encounter (principal); D64.9 Anemia, unspecified; E87.1 Hypo-osmolality and hyponatremia; I10 Essential (primary) hypertension; I25.10 Atherosclerotic heart disease of native coronary artery without angina pectoris; I42.9 Cardiomyopathy, unspecified; I50.20 Unspecified systolic (congestive) heart failure; N20.1 Calculus of ureter; N21.0 Calculus in bladder; N40.0 Benign prostatic hyperplasia without lower urinary tract symptoms; R63.6 Underweight; Z85.46 Personal history of malignant neoplasm of prostate
CPT/HCPCS: 80048

== ENCOUNTER → 2024-12-21 16:05 | Outpatient (REF) | payer OTHER, SELFPAY ==
[2024-12-21 17:37] LABS: Urine Character Slightly Cloudy (Clear)
[2024-12-21 17:53] LABS: Urine Red Blood Cell 80-90 /HPF (0-2); Urine Squamous Cell 0-2 /LPF (Few)
== END ==
LOC: OLABP 16:05
PROVIDERS: ATTENDING PHYSICIAN Family Medicine
DX: I10 Essential (primary) hypertension (principal); N20.1 Calculus of ureter; I42.9 Cardiomyopathy, unspecified; I50.20 Unspecified systolic (congestive) heart failure; N21.0 Calculus in bladder; N40.0 Benign prostatic hyperplasia without lower urinary tract symptoms; R63.6 Underweight; Z85.46 Personal history of malignant neoplasm of prostate; T82.7XXD Infection and inflammatory reaction due to other cardiac and vascular devices, implants and grafts, subsequent encounter
CPT/HCPCS: 81003; 81015; 87086

== ENCOUNTER → 2024-12-22 16:06 | Outpatient (REF) | payer OTHER, SELFPAY ==
[2024-12-22 16:32] LABS: Hematocrit 28.2 % (39.0-52.0); Hemoglobin 8.8 g/dL (13.0-18.0); Mean Corp Hgb Conc. 31.2 g/dL (33.0-37.0); Mean Corpuscular Volume 102.5 fL (80.0-94.0); Nucleated Red Blood Cells % 0 % (-); Platelet Count 163 10^3/uL (130-400); Red Cell Dist. Width 14.9 % (11.5-14.5)
[2024-12-22 16:59] LABS: Blood Urea Nitrogen 13 mg/dl (9-20); Calcium 8.5 mg/dl (8.4-10.2); Carbon Dioxide 30 mmol/L (22-30); Chloride 104 mmol/L (98-107); Glucose 108 mg/dl (70-99); Potassium 4.4 mmol/L (3.5-5.1); Sodium 136 mmol/L (135-145); eGFR > 60.00
== END ==
LOC: OLABP 16:06
PROVIDERS: ATTENDING PHYSICIAN Family Medicine
DX: I10 Essential (primary) hypertension (principal); I25.10 Atherosclerotic heart disease of native coronary artery without angina pectoris; I42.9 Cardiomyopathy, unspecified; I50.20 Unspecified systolic (congestive) heart failure
CPT/HCPCS: 36415; 80048; 85025

== ENCOUNTER → 2024-12-28 10:17 | Outpatient (REF) | payer OTHER, SELFPAY ==
[2024-12-28 10:42] LABS: Hematocrit 27.5 % (39.0-52.0); Hemoglobin 8.9 g/dL (13.0-18.0); Mean Corp Hgb Conc. 32.4 g/dL (33.0-37.0); Mean Corpuscular Volume 98.9 fL (80.0-94.0); Nucleated Red Blood Cells % 0 % (-); Platelet Count 159 10^3/uL (130-400); Red Cell Dist. Width 15.3 % (11.5-14.5)
[2024-12-28 10:59] LABS: Blood Urea Nitrogen 17 mg/dl (9-20); Calcium 8.4 mg/dl (8.4-10.2); Carbon Dioxide 28 mmol/L (22-30); Chloride 105 mmol/L (98-107); Glucose 66 mg/dl (70-99); Potassium 4.4 mmol/L (3.5-5.1); Sodium 134 mmol/L (135-145); eGFR > 60.00
[2024-12-28 11:52] LABS: Vitamin B12 896 pg/ml (239-931)
== END ==
LOC: OLABP 10:17
PROVIDERS: ATTENDING PHYSICIAN Family Medicine
DX: I10 Essential (primary) hypertension (principal); I50.20 Unspecified systolic (congestive) heart failure; N21.0 Calculus in bladder
CPT/HCPCS: 36415; 80048; 82607; 85025

== ENCOUNTER → 2024-12-30 11:32 | Outpatient (REF) | payer OTHER, SELFPAY ==
[2024-12-30 12:21] LABS: Blood Urea Nitrogen 18 mg/dl (9-20); Calcium 8.1 mg/dl (8.4-10.2); Carbon Dioxide 28 mmol/L (22-30); Chloride 105 mmol/L (98-107); Glucose 63 mg/dl (70-99); Potassium 4.4 mmol/L (3.5-5.1); Sodium 138 mmol/L (135-145); eGFR > 60.00
== END ==
LOC: OLABP 11:32
PROVIDERS: ATTENDING PHYSICIAN Family Medicine
DX: T82.7XXD Infection and inflammatory reaction due to other cardiac and vascular devices, implants and grafts, subsequent encounter (principal); D64.9 Anemia, unspecified; N40.0 Benign prostatic hyperplasia without lower urinary tract symptoms; D69.6 Thrombocytopenia, unspecified; R63.6 Underweight; Z85.46 Personal history of malignant neoplasm of prostate; E87.1 Hypo-osmolality and hyponatremia; I10 Essential (primary) hypertension; I25.10 Atherosclerotic heart disease of native coronary artery without angina pectoris; I42.9 Cardiomyopathy, unspecified; I50.20 Unspecified systolic (congestive) heart failure; N20.1 Calculus of ureter; N21.0 Calculus in bladder
CPT/HCPCS: 36415; 80048

== ENCOUNTER 2024-12-31 08:41 | Emergency (ER) | payer OTHER, SELFPAY ==
[2024-12-31 08:46] VITALS: BP 108/53; BMI 20.2
[2024-12-31 08:49] VITALS: BP 108/53
--- NOTE | 2024-12-31 08:53 | ED.GENMED ---
History of Present Illness
<Ute Nascimento MD, Resident - Last Filed: 12/31/24 10:30>
General
Chief Complaint: Fall
Source: patient
Exam Limitations: none
Time Seen by Provider: 12/31/24 08:43
Nursing documentation reviewed up to this point in time: agreed with
History of Present Illness
History of Present Illness:
89yo M with a hx of arthritis, back pain, a fib, CHF, HTN, CAD, & prostate ca who presents s/p fall at [facility]F.
Pt was getting into his wheelchair at SNF when it rolled out from under him and he fell on the ground, hitting his head. Denies LOC. Had minor bleeding from back of head, bandage was placed & patient was brought to ED. Pt denies any AGRAWAL, vision
change, confusion, nausea/vomiting after the fall. States that he feels fine. Denies any change to his chronic low back/hip pain. Takes aspirin, no anticoagulants.
Past History
<Ute Nascimento MD, Resident - Last Filed: 12/31/24 10:30>
Past History
ED Past Medical History: Arrthythmia, CAD, Cancer, CHF and HTN
Patient has exhibited threatening behavior?: No
Social History
Tobacco: Former smoker
Living: custodial
Review of Systems
<Ute Nascimento MD, Resident - Last Filed: 12/31/24 10:30>
Review of Systems
Allergies reviewed?: Yes
All Other Systems: ROS reviewed and negative except as documented in HPI and ROS
Constitutional: Reports no symptoms
EENT: Reports no symptoms
Respiratory: Reports no symptoms
Cardiac: Reports no symptoms
ABD/GI: Reports no symptoms
: Reports no symptoms
Musculoskeletal: Reports back pain
Skin: Reports other (abrasion on occipital head )
Neurological: Reports no symptoms
Phy Exam
<Ute Nascimento MD, Resident - Last Filed: 12/31/24 10:30>
General Physical Exam
General Presentation: no apparent distress
General age: appears stated age
General Skin: dry
General Habitus: elderly
General Mental: alert
Cardiovascular Exam
Cardiovascular Exam: regular rate/rhythm and no edema
Heart Sounds: normal
Pulmonary Exam
Pulmonary Exam: no respiratory distress
Gastrointestinal Exam
Gastrointestinal Exam: non distended
Neurological Exam
Neurological Exam: alert
Musculoskeletal Exam
Musculoskeletal Exam: other (no tenderness to palpation along spine or hips)
Skin Exam
Skin Exam: other (small abrasion with minimal hematoma on occipital scalp, no active bleeding)
Course
<Ute Nascimento MD, Resident - Last Filed: 12/31/24 10:30>
Orders/Labs/Results
Orders:
Orders
12/31/24 09:03
CT Head W/o Iv Contrast Urgent
Comment:
Reason For Exam: head trauma
Tetanus/Diphth/Acelpertussis [Adacel] 0.5 ml IM .ONCE ONE
Vital Signs
Initial and Last Documented VS:
Initial Vital Signs
Temp Pulse Resp BP Pulse Ox
98.6 F 68 16 108/53 96
12/31/24 08:46 12/31/24 08:46 12/31/24 08:46 12/31/24 08:46 12/31/24 08:46
Last Documented Vital Signs
Temp Pulse Resp BP Pulse Ox
98.6 F 61 20 124/60 98
12/31/24 08:46 12/31/24 09:15 12/31/24 09:15 12/31/24 09:01 12/31/24 09:01
<Riley Haro DO - Last Filed: 12/31/24 09:06>
Orders/Labs/Results
Orders:
Orders
12/31/24 09:03
CT Head W/o Iv Contrast Urgent
Comment:
Reason For Exam: head trauma
Tetanus/Diphth/Acelpertussis [Adacel] 0.5 ml IM .ONCE ONE
Vital Signs
Initial and Last Documented VS:
Initial Vital Signs
Temp Pulse Resp BP Pulse Ox
98.6 F 68 16 108/53 96
12/31/24 08:46 12/31/24 08:46 12/31/24 08:46 12/31/24 08:46 12/31/24 08:46
Last Documented Vital Signs
Temp Pulse Resp BP Pulse Ox
98.6 F 61 20 124/60 98
12/31/24 08:46 12/31/24 09:15 12/31/24 09:15 12/31/24 09:01 12/31/24 09:01
<Ute Nascimento MD, Resident - Last Filed: 12/31/24 10:30>
MDM/Problems Addressed
Differential Diagnosis Includes:
R/o ICH in s/o trauma to head in elderly patient
Abrasion not in need of sutures
MDM/Problems Addressed:
- CT head wo contrast
- Tetanus vaccine booster
<Ute Nascimento MD, Resident - Last Filed: 12/31/24 10:30>
*Pulse Oximetry
SaO2: 95
Oxygen Mode of Delivery: Room air
Patient hypoxic: no
*Critical Care Note
Total Time (30-74mins, 75-104mins- exclusive of procedures): Not Applicable
<Ute Nascimento MD, Resident - Last Filed: 12/31/24 10:30>
Update Note
Update Note:
CT head without abnormality
ED Attending Note
<Ute Nascimento MD, Resident - Last Filed: 12/31/24 10:30>
-
Portions of this chart may have been created with voice recognition software.� Occasional wrong word or��sound alike� substitutions may have occurred due to the inherent limitations of voice recognition software.
<Riley Haro, DO - Last Filed: 12/31/24 09:06>
ED Attending Note
Patient seen and examined by attending physician: Yes
I performed a history and physical exam of patient and discussed management with resident, I reviewed resident's note and agree with documented findings and plan of care.: Yes
ED Attending Note:
I agree with Ute's note
Patient suffered a fall at [employer]. He fell backwards when his wheelchair rolled as he was sitting down. No loss of consciousness. No anticoagulation.
General: Awake, Alert, Oriented X3. No acute distress.
Vitals: unremarkable
Head: Abrasion posterior scalp on the right
Eyes: Pupils equal, EOMI
Throat: Airway intact, no exudates
Neck: Trachea midline, no midline tenderness
Lungs: Clear and equal b/l
Neuro: Nonfocal
Skin: Warm, dry, no rash
Extremities: pulses equal b/l, no edema
Patient has small scalp abrasion but otherwise fairly asymptomatic. Given age will obtain a CT of the head.
Discharge Plan
Departure
Patient Disposition: Acute Rehab Facility
Date of Disposition: 12/31/24
Time of Disposition: 10:28
Patient with high blood pressure during this ER visit?: No
Condition: Good
Covid-19: Not Applicable
Discharge Problem:
Head injury due to trauma
Prescriptions:
No Action
aspirin 81 mg Tablet,Delayed Release (Dr/Ec)
81 mg PO DAILY
cyanocobalamin (vitamin B-12) 1,000 mcg Tablet
1,000 mcg PO DAILY Qty: 0 0RF
PreserVision AREDS-2 250-90-40-1 mg Capsule
1 tab PO BID Qty: 0 0RF
amiodarone 200 mg Tablet
200 mg PO HS
ascorbic acid (vitamin C) [Vitamin C] 500 mg Tablet
500 mg PO DAILY
magnesium oxide 250 mg magnesium Tablet
250 mg PO BID
valsartan 40 mg Tablet
40 mg PO HS
cholecalciferol (vitamin D3) [Vitamin D3] 50 mcg (2,000 unit) Tablet
50 mcg PO DAILY
docusate sodium 100 mg Capsule
100 mg PO HS
magnesium hydroxide [Milk of Magnesia] 400 mg/5 mL Suspension
10 ml PO PRN PRN (Reason: Constipation)
phenazopyridine 200 mg Tablet
200 mg PO TIDPRN PRN (Reason: penile pain) Qty: 0 0RF
gabapentin 100 mg Capsule
100 mg PO TID Qty: 0 0RF
Ertapenem [Invanz] 1000 MG
0.9% Sodium Chloride [Nss] 50 ML
120 mls/hr IV Q24H
Ordered By: Aaron Salazar MD
Last Taken: Unknown
Referrals:
Madeleine Sanders DO [Family Provider, General]
Activity Restrictions/Additional Instructions:
You were seen in the ED due to head trauma after falling out of a wheelchair. CT scan of your head did not show any bleeding in the brain. The abrasion on your scalp was not significant enough to need stitches. We gave you a booster of your tetanus
vaccine to prevent infection from your cut.
Return to the ED if you have worsening head pain, blurry vision, fever/chills.
Interventions
Interventions:
*Risk Screen - Suicide Last Done: 12/31/24 08:46
*General Assessment Last Done: 12/31/24 08:46
*Neglect/Abuse Screening Last Done: 12/31/24 08:46
*ED- Fall Risk Assessment Last Done: 12/31/24 08:46
*ED COVID-19 Vaccine History Last Done: 12/31/24 08:46
*ED Influenza Vaccine History Last Done: 12/31/24 08:46
ED-Musculoskeletal Assessment Last Done: 12/31/24 08:46
ED- Neurological Assessment Last Done: 12/31/24 08:46
ED-Skin Assessment Last Done: 12/31/24 08:46
Discharge Date and Time
Print Language: PALAUAN
[2024-12-31 09:01] VITALS: BP 124/60
[2024-12-31] MEDS: ADACEL 0.5 ML IM (10:30)
== END 2024-12-31 11:31 ==
LOC: EMR 08:41
PROVIDERS: EMERGENCY PHYSICIAN Emergency Medicine; FAMILY PHYSICIAN Family Medicine
DX: S00.03XA Contusion of scalp, initial encounter (principal); S00.01XA Abrasion of scalp, initial encounter; W05.0XXA Fall from non-moving wheelchair, initial encounter; I11.0 Hypertensive heart disease with heart failure; I50.9 Heart failure, unspecified; I25.10 Atherosclerotic heart disease of native coronary artery without angina pectoris; I48.91 Unspecified atrial fibrillation; Z87.891 Personal history of nicotine dependence; Z23 Encounter for immunization
CPT/HCPCS: 99284; 90471; 70450; 90715

== ENCOUNTER → 2025-01-02 09:58 | Outpatient (REF) | payer OTHER, SELFPAY ==
[2025-01-02 11:05] LABS: Hematocrit 27.9 % (39.0-52.0); Hemoglobin 8.8 g/dL (13.0-18.0); Mean Corp Hgb Conc. 31.5 g/dL (33.0-37.0); Mean Corpuscular Volume 101.8 fL (80.0-94.0); Nucleated Red Blood Cells % 0 % (-); Platelet Count 145 10^3/uL (130-400); Red Cell Dist. Width 16.5 % (11.5-14.5)
[2025-01-02 11:44] LABS: ALT (SGPT) 18 U/L (0-50); AST (SGOT) 23 U/L (17-59); Albumin 3.1 g/dl (3.5-5.0); Alkaline Phosphatase 74 U/L (38-126); Blood Urea Nitrogen 18 mg/dl (9-20); Calcium 8.5 mg/dl (8.4-10.2); Carbon Dioxide 26 mmol/L (22-30); Chloride 108 mmol/L (98-107); Glucose 75 mg/dl (70-99); Potassium 4.3 mmol/L (3.5-5.1); Sodium 138 mmol/L (135-145); Total Protein 6.1 g/dl (6.3-8.2); eGFR > 60.00
== END ==
LOC: OLABP 09:58
PROVIDERS: ATTENDING PHYSICIAN Family Medicine
DX: I42.9 Cardiomyopathy, unspecified (principal); T82.7XXD Infection and inflammatory reaction due to other cardiac and vascular devices, implants and grafts, subsequent encounter; R63.6 Underweight; N40.0 Benign prostatic hyperplasia without lower urinary tract symptoms; N20.1 Calculus of ureter; N21.0 Calculus in bladder
CPT/HCPCS: 36415; 80053; 85025

== ENCOUNTER → 2025-01-09 09:55 | Outpatient (REF) | payer OTHER, SELFPAY ==
[2025-01-09 12:37] LABS: Hematocrit 30.5 % (39.0-52.0); Hemoglobin 9.5 g/dL (13.0-18.0); Mean Corp Hgb Conc. 31.1 g/dL (33.0-37.0); Mean Corpuscular Volume 106.3 fL (80.0-94.0); Nucleated Red Blood Cells % 0 % (-); Platelet Count 153 10^3/uL (130-400); Red Cell Dist. Width 16.2 % (11.5-14.5)
[2025-01-09 12:48] LABS: ALT (SGPT) 12 U/L (0-50); AST (SGOT) 17 U/L (17-59); Albumin 2.8 g/dl (3.5-5.0); Alkaline Phosphatase 66 U/L (38-126); Blood Urea Nitrogen 18 mg/dl (9-20); Calcium 8.3 mg/dl (8.4-10.2); Carbon Dioxide 27 mmol/L (22-30); Chloride 105 mmol/L (98-107); Glucose 70 mg/dl (70-99); Potassium 4.4 mmol/L (3.5-5.1); Sodium 135 mmol/L (135-145); Total Protein 5.8 g/dl (6.3-8.2); eGFR > 60.00
== END ==
LOC: OLABP 09:55
PROVIDERS: ATTENDING PHYSICIAN Family Medicine
DX: D64.9 Anemia, unspecified (principal); N40.0 Benign prostatic hyperplasia without lower urinary tract symptoms; R63.6 Underweight; E87.1 Hypo-osmolality and hyponatremia; I10 Essential (primary) hypertension; I25.10 Atherosclerotic heart disease of native coronary artery without angina pectoris; I42.9 Cardiomyopathy, unspecified; I50.20 Unspecified systolic (congestive) heart failure; N20.1 Calculus of ureter; N21.0 Calculus in bladder
CPT/HCPCS: 36415; 80053; 85025

== ENCOUNTER → 2025-01-16 09:58 | Outpatient (REF) | payer OTHER, SELFPAY ==
[2025-01-16 11:38] LABS: Hematocrit 32.9 % (39.0-52.0); Hemoglobin 10.1 g/dL (13.0-18.0); Mean Corp Hgb Conc. 30.7 g/dL (33.0-37.0); Mean Corpuscular Volume 106.8 fL (80.0-94.0); Nucleated Red Blood Cells % 0 % (-); Platelet Count 236 10^3/uL (130-400); Red Cell Dist. Width 16.2 % (11.5-14.5)
[2025-01-16 11:43] LABS: AST (SGOT) 21 U/L (17-59); Albumin 3.1 g/dl (3.5-5.0); Alkaline Phosphatase 79 U/L (38-126); Blood Urea Nitrogen 20 mg/dl (9-20); Calcium 8.5 mg/dl (8.4-10.2); Carbon Dioxide 27 mmol/L (22-30); Chloride 108 mmol/L (98-107); Glucose 69 mg/dl (70-99); Potassium 4.6 mmol/L (3.5-5.1); Sodium 138 mmol/L (135-145); Total Protein 6.4 g/dl (6.3-8.2); eGFR > 60.00
[2025-01-16 12:02] LABS: ALT (SGPT) 14 U/L (0-50)
== END ==
LOC: OLABP 09:58
PROVIDERS: ATTENDING PHYSICIAN Family Medicine
DX: T82.7XXD Infection and inflammatory reaction due to other cardiac and vascular devices, implants and grafts, subsequent encounter (principal); D64.9 Anemia, unspecified; D69.6 Thrombocytopenia, unspecified; E87.1 Hypo-osmolality and hyponatremia; I10 Essential (primary) hypertension; I25.10 Atherosclerotic heart disease of native coronary artery without angina pectoris; I42.9 Cardiomyopathy, unspecified; I50.20 Unspecified systolic (congestive) heart failure; N20.1 Calculus of ureter; N21.0 Calculus in bladder; N40.0 Benign prostatic hyperplasia without lower urinary tract symptoms
CPT/HCPCS: 36415; 80053; 85025

== ENCOUNTER → 2025-01-23 11:24 | Outpatient (REF) | payer OTHER, SELFPAY ==
[2025-01-23 12:16] LABS: Hematocrit 34.3 % (39.0-52.0); Hemoglobin 10.5 g/dL (13.0-18.0); Mean Corp Hgb Conc. 30.6 g/dL (33.0-37.0); Mean Corpuscular Volume 107.5 fL (80.0-94.0); Nucleated Red Blood Cells % 0 % (-); Platelet Count 153 10^3/uL (130-400); Red Cell Dist. Width 16.8 % (11.5-14.5)
== END ==
LOC: OLABP 11:24
PROVIDERS: ATTENDING PHYSICIAN Family Medicine
DX: N40.0 Benign prostatic hyperplasia without lower urinary tract symptoms (principal); D64.9 Anemia, unspecified; E87.1 Hypo-osmolality and hyponatremia; I10 Essential (primary) hypertension; I25.10 Atherosclerotic heart disease of native coronary artery without angina pectoris; I42.9 Cardiomyopathy, unspecified; I50.20 Unspecified systolic (congestive) heart failure; N20.0 Calculus of kidney
CPT/HCPCS: 36415; 85025